=== PATIENT | male | born 1960 | race Caucasian/White ===

== ENCOUNTER → 2016-10-31 | Outpatient (REF) | payer OTHER ==
[~2016-10-31] MED LIST: CHLO25TA GT; LISI10TA4 PO; SIMV40TA2 PO
[2016-10-31 12:29] LABS: ALBUMIN 3.9 GM/DL (3.2-5.2); ALBUMIN/GLOBULIN RATIO 1.18 (1.00-1.93); ALKALINE PHOSPHATASE 75 U/L (45-117); ALT/SGPT 21 U/L (12-78); ANION GAP 11 MEQ/L (8-16); AST/SGOT 14 U/L (15-37); BILIRUBIN,TOTAL 0.5 MG/DL (0.2-1.0); BLOOD UREA NITROGEN 9 MG/DL (7-18); CALCIUM LEVEL 9.2 MG/DL (8.5-10.1); CARBON DIOXIDE LEVEL 29 MEQ/L (21-32); CHLORIDE LEVEL 97 MEQ/L (98-107); CHOLESTEROL LEVEL 176 MG/DL (<200); GLOMERULAR FILTRATION RATE > 60.0 (>56); GLUCOSE, FASTING 109 MG/DL (70-105); POTASSIUM SERUM 4.5 MEQ/L (3.5-5.1); SODIUM LEVEL 137 MEQ/L (136-145); TOTAL PROTEIN 7.2 GM/DL (6.4-8.2); TRIGLYCERIDES LEVEL 55 MG/DL (<150)
== END ==
LOC: M SFHCPLAZ 07:54
PROVIDERS: ATTEND Internal Medicine
DX: I10 Essential (primary) hypertension (principal); R73.01 Impaired fasting glucose; E78.00 Pure hypercholesterolemia, unspecified

== ENCOUNTER → 2016-12-08 | Outpatient (CLI) | payer OTHER ==
--- NOTE | 2016-12-09 07:25 | REP ---
Clinical: Lung screening examination. History smoking. Technique: Axial low-dose noncontrast images from the thoracic inlet to the upper abdomen using lung screening technique. Findings: Multiple posterobasilar right lower lobe areas of mass-like consolidation are identified with the largest components measuring 2.8 and 3.0 cm maximal diameter each. Differential diagnosis would include areas of acute pneumonia, chronic rounded atelectasis and neoplasm. No pleural effusion. Diffuse mild chronic interstitial changes and mild bronchiectasis noted and consistent with a history of smoking. Hilar and mediastinal adenopathy cannot be excluded based on current examination. Heart and pericardium are grossly normal. Thoracic aorta without aneurysm. Surrounding musculoskeletal structures are intact. Impression: Multiple areas of mass-like consolidation involving the posterior basilar right lower lobe with the largest components measuring 2.8 cm and 3.0 cm maximal diameter. Differential diagnosis includes pneumonia and neoplasm. Signed by Jaspreet Zarate MD 12/09/2016 07:17 A
== END ==
LOC: M RAD 09:57
PROVIDERS: ATTEND Internal Medicine
DX: Z12.2 Encounter for screening for malignant neoplasm of respiratory organs (principal); R91.8 Other nonspecific abnormal finding of lung field; Z87.891 Personal history of nicotine dependence

== ENCOUNTER → 2016-12-18 | Outpatient (CLI) | payer OTHER ==
[~2016-12-18] MED LIST changes: +CHLO125TA PO; +NICO1DIS2 TD; +SIMV20TA2 PO; +TUMS500C PO
[2016-12-18 12:44] LABS: INR 0.96
== END ==
LOC: M LAB 11:41
PROVIDERS: ATTEND Thoracic Surgery (Cardiothoracic Vascular Surgery)
DX: R91.1 Solitary pulmonary nodule (principal)

== ENCOUNTER 2016-12-19 10:42 | Inpatient (IN) | payer OTHER ==
[~2016-12-19] VITALS: Ht 167.6 cm; Wt 61.0 kg
[~2016-12-19 10:42] MED LIST changes: -CHLO125TA PO; -NICO1DIS2 TD; -SIMV20TA2 PO; -TUMS500C PO
[2016-12-19] MEDS ORDERED: LIDOCAINE 1% MDV 20ML VIAL As Ordered ONE ×2 (10:46→15:19)
--- NOTE | 2016-12-19 12:44 | REP ---
POST BIOPSY CHEST: Post biopsy image of the chest is performed. There is a small right apical pneumothorax with air gap 2.4 cm. Nodular opacity is seen in the right lung base. Heart is normal in size. IMPRESSION: Small right apical pneumothorax status post right lung biopsy. Signed by Luis Matos MD 12/19/2016 04:39 P
--- NOTE | 2016-12-19 14:49 | REP ---
CHEST: Postbiopsy image of the chest is performed. Right apical pneumothorax has mildly increased in size compared to prior exam 2 hours earlier. Air gap is currently 4.6 cm, previously 2.4 cm. IMPRESSION: Mild increase in right apical pneumothorax. Signed by Luis Matos MD 12/19/2016 04:43 P
[2016-12-19] MEDS ORDERED: MIDAZOLAM INJ 2 MG/2 ML VIAL (J2250) As Ordered ONE (15:19)
[2016-12-19] MEDS ORDERED: PERCOCET 5MG/325MG TAB PO PRN ×2 (15:30)
[2016-12-19] MEDS ORDERED: BISACODYL 10 MG SUPP PR PRN (15:30)
[2016-12-19] MEDS ORDERED: LEVALBUTEROL 1.25 MG/0.5 ML CONCENTRATE NEB NEB PRN (15:30)
[2016-12-19] MEDS ORDERED: ACETAMINOPHEN TAB 650MG DOSE (2X325MG) PO PRN (15:30)
[2016-12-19] MEDS ORDERED: NORCO, ANEXSIA 5/325MG TABLET (HYDROcodone/ACETAMINOPHEN) PO PRN (15:30)
[2016-12-19] MEDS ORDERED: ONDANSETRON 4MG/2ML VIAL (J2405) IV PRN (15:30)
[2016-12-19 16:10] VITALS: BP 108/57
[2016-12-19] MEDS ORDERED: CHLO125TA PO (16:44)
[2016-12-19] MEDS ORDERED: SIMV20TA2 PO (16:44)
[2016-12-19] MEDS ORDERED: TUMS500C PO (16:44)
[2016-12-19] MEDS ORDERED: NICO1DIS2 TD (16:44)
--- NOTE | 2016-12-19 16:48 | REP ---
PORTABLE CHEST, ONE VIEW: HISTORY: Pneumothorax COMPARISON: 2:21 p.m. 12/19/2016. Parenchymal density is present in the right lower lobe consistent with atelectasis or infiltrate. The left lung is clear. The heart is normal in size. The pulmonary vasculature is normal in appearance. A very small right apical pneumothorax is present. A chest tube is present in the right hemithorax. IMPRESSION: 1. Right lower lobe atelectasis or infiltrate. 2. Very small right apical pneumothorax. A right chest tube is present. Signed by Jose Pedersen MD 12/19/2016 04:58 P
[2016-12-19] MEDS ORDERED: KCL 20MEQ IN D5/NS 1000ML 1,000 ML IV SCH (17:00)
[2016-12-19] MEDS ORDERED: CALCIUM CARBONATE 500 MG CHEW U/D PO PRN (17:15)
--- NOTE | 2016-12-19 17:23 | REP ---
CT GUIDED RIGHT LOWER LOBE LUNG BIOPSY: The procedure was performed under the direct supervision of Dr. Matos. The patient has a history of multiple posterobasilar right lower lobe areas of mass-like consolidations seen on a previous CAT scan dated 12/08/2016. The risks and benefits of the procedure were explained to the patient and informed consent was obtained. The right lower lobe lung mass was localized using CT guidance. The skin was prepped and draped in a sterile fashion. 1% Lidocaine was used as a local anesthetic. Using CT guidance a 19/20-gauge coaxial needle biopsy system was inserted and then advanced into the mass. 4 core biopsy samples were obtained and sent to the lab. The patient developed a right pneumothorax. The patient's Oxygen saturations were 98-99% on room air. The patient was placed on 2 liters of Oxygen via nasal cannula. His oxygen saturations were then 100% on oxygen. The patient complained of no pain. His vital signs were otherwise stable. Single view PA chest x-ray performed immediately after the procedure shows a small right apical pneumothorax. Another chest x-ray performed 2 hours later shows a mild increase in the right apical pneumothorax. Dr. Sanches was consulted and came to the department and inserted the chest tube into the patient. The patient was then admitted under Dr. Sanches's care. Reviewed by RJ Uriostegui 12/19/2016 05:42 PEdited and Signed by Luis Matos MD 12/22/2016 05:35 P
[2016-12-19] MEDS: SIMVASTATIN 20 MG TAB PO SCH (17:34)
[2016-12-19] MEDS: CHLORTHALIDONE 12.5MG PER 1/2 TABLET PO SCH (17:34)
[2016-12-19] MEDS: PANTOPRAZOLE 40MG TAB (PROTONIX) PO SCH (17:35)
[2016-12-19] MEDS: LISINOPRIL 10 MG TAB PO SCH (17:37)
[2016-12-19] MEDS: KETOROLAC 30 MG/ML VIAL (J1885) IV SCH ×2 (17:38→23:45)
[2016-12-19] MEDS: NICOTINE 21MG/24HR 1 EA TRANSDERMAL TD SCH (17:39)
[2016-12-19 19:00] LABS: ANION GAP 6 MEQ/L (8-16); BLOOD UREA NITROGEN 11 MG/DL (7-18); CALCIUM LEVEL 8.4 MG/DL (8.5-10.1); CARBON DIOXIDE LEVEL 30 MEQ/L (21-32); CHLORIDE LEVEL 101 MEQ/L (98-107); CREATININE FOR GFR 0.67 MG/DL (0.70-1.30); GLOMERULAR FILTRATION RATE > 60.0 (>56); GLUCOSE, FASTING 94 MG/DL (70-105); POTASSIUM SERUM 3.8 MEQ/L (3.5-5.1); SODIUM LEVEL 137 MEQ/L (136-145)
[2016-12-19 19:13] LABS: BASO % 0.1 % (0.0-1.0); EOS # 0.2 K/mm3 (0.0-0.50); EOS % 1.5 % (0.0-3.0); LARGE UNSTAINED CELL # 0.2 K/mm3 (0.0-0.4); LARGE UNSTAINED CELL % 1.4 % (0.0-4.0); LYMPH # 1.1 K/mm3 (1.5-4.5); LYMPH % 10.5 % (24.0-44.0); MEAN CORPUSCULAR HGB CONC 34.2 g/dl (32.0-36.5); MEAN CORPUSCULAR VOLUME 93.4 fl (80.0-96.0); MONO # 0.5 K/mm3 (0.0-0.8); MONO % 4.1 % (0.0-5.0); NEUTROPHILS # 8.9 K/mm3 (1.8-7.7); NEUTROPHILS % 82.3 % (36.0-66.0); PLATELET COUNT, AUTOMATED 331 k/mm3 (150-450); RED CELL DISTRIBUTION WIDTH 12.8 % (11.5-14.5); WHITE BLOOD COUNT 10.8 K/mm3 (4.0-10.0)
[2016-12-19 20:00] VITALS: BP 85/50
[2016-12-19] MEDS: HEPARIN SOD (PORCINE) 5000 UNITS/ML VIAL SC SCH (20:48)
[2016-12-19] MEDS: DOCUSATE SODIUM 100 MG CAP PO SCH (20:48)
[2016-12-19 21:15] VITALS: BP 101/62
[2016-12-19] MEDS: LEVALBUTEROL 1.25 MG/0.5 ML CONCENTRATE NEB NEB SCH (21:38)
[2016-12-19] MEDS ORDERED: SLF 3 ML SYR IV PRN (23:15)
[2016-12-19 23:59] VITALS: BP 99/54
[2016-12-20] MEDS: LEVALBUTEROL 1.25 MG/0.5 ML CONCENTRATE NEB NEB SCH ×4 (02:20→20:00)
[2016-12-20 04:45] VITALS: BP 96/54
[2016-12-20] MEDS: KETOROLAC 30 MG/ML VIAL (J1885) IV SCH ×3 (05:06→17:38)
[2016-12-20] MEDS: SLF 3 ML SYR IV SCH ×3 (05:06→21:32)
[2016-12-20 05:29] LABS: BASO % 0.1 % (0.0-1.0); EOS # 0.1 K/mm3 (0.0-0.50); EOS % 1.5 % (0.0-3.0); LARGE UNSTAINED CELL # 0.1 K/mm3 (0.0-0.4); LARGE UNSTAINED CELL % 1.5 % (0.0-4.0); LYMPH % 12.1 % (24.0-44.0); MEAN CORPUSCULAR HGB CONC 33.8 g/dl (32.0-36.5); MEAN CORPUSCULAR VOLUME 94.7 fl (80.0-96.0); MONO # 0.4 K/mm3 (0.0-0.8); MONO % 4.6 % (0.0-5.0); NEUTROPHILS # 6.9 K/mm3 (1.8-7.7); NEUTROPHILS % 80.3 % (36.0-66.0); PLATELET COUNT, AUTOMATED 291 k/mm3 (150-450); RED CELL DISTRIBUTION WIDTH 13.1 % (11.5-14.5); WHITE BLOOD COUNT 8.6 K/mm3 (4.0-10.0)
[2016-12-20 05:40] LABS: ANION GAP 4 MEQ/L (8-16); BLOOD UREA NITROGEN 13 MG/DL (7-18); CALCIUM LEVEL 8.4 MG/DL (8.5-10.1); CARBON DIOXIDE LEVEL 30 MEQ/L (21-32); CHLORIDE LEVEL 106 MEQ/L (98-107); CREATININE FOR GFR 0.78 MG/DL (0.70-1.30); GLOMERULAR FILTRATION RATE > 60.0 (>56); GLUCOSE, FASTING 106 MG/DL (70-105); SODIUM LEVEL 140 MEQ/L (136-145)
[2016-12-20 08:00] VITALS: BP 101/50
[2016-12-20] MEDS: DOCUSATE SODIUM 100 MG CAP PO SCH ×2 (08:50→21:32)
[2016-12-20] MEDS: SIMVASTATIN 20 MG TAB PO SCH (08:50)
[2016-12-20] MEDS: HEPARIN SOD (PORCINE) 5000 UNITS/ML VIAL SC SCH ×2 (08:50→21:32)
[2016-12-20] MEDS: CHLORTHALIDONE 12.5MG PER 1/2 TABLET PO SCH (08:50)
[2016-12-20] MEDS: PANTOPRAZOLE 40MG TAB (PROTONIX) PO SCH (08:50)
[2016-12-20] MEDS: MOM 30ML SUSPENSION UDC PO SCH (08:50)
[2016-12-20] MEDS: LISINOPRIL 10 MG TAB PO SCH (08:50)
[2016-12-20] MEDS: NICOTINE 21MG/24HR 1 EA TRANSDERMAL TD SCH (08:51)
[2016-12-20 12:00] VITALS: BP 99/58
--- NOTE | 2016-12-20 15:05 | HPE ---
DATE OF ADMISSION: 12/19/2016 Patient is seen on request of Dr. Matos of radiology for a pneumothorax after a lung biopsy. The pneumothorax has grown to approximately 40-50%. HISTORY OF PRESENT ILLNESS: The patient is a 56-year-old White male who underwent a lung biopsy today of a right lower lobe lesion found on a CT screening examination on 12/08/2016. Had this screening CT had not been undertaken he would not have known anything brewing in this chest. He does not complain of undue shortness of breath, and in fact was cutting wood a few days ago in his back yard with a chainsaw. He had a slight cough but no sputum production. He did have an upper respiratory track infection a number of weeks ago where he was bringing up yellow sputum but that has resolved. He was also running a low grade fever at that point in time. He does not report any weight loss and he has no chest pain and no chest discomfort. He has no dysphasia. PAST MEDICAL HISTORY: 1. Hypertension. 2. Hypercholesterolemia. ALLERGIES: None. HOME MEDICATIONS: - lisinopril 10 mg daily - simvastatin 20 mg at night - chlorthalidone 12.5 mg daily TRAVEL HISTORY: He has a positive travel history to the [facility] last year and to [place]. No travel history to the [facility] or [facility]. EXPOSURES: No birds, cats, or dogs at home. 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 HABITS: He smokes 1/2 to 3/4 pack per day. He drinks 4-5 beer at night. FAMILY HISTORY: Father has diabetes and hypertension. Mother has chronic obstructive pulmonary disease (COPD). REVIEW OF SYSTEMS: CONSTITUTIONAL: See history of present illness (HPI). EYES: Without diplopia. Without amaurosis fugax. Without prior jaundice. MOUTH: Has his own teeth. CARDIAC: Without prior myocardial infarctions, orthopnea, paroxysmal nocturnal dyspnea, or intermittent claudication. Does have hypertension. RESPIRATORY: See HPI. GASTROINTESTINAL: Without nausea, vomiting, diarrhea, constipation, melena, hematochezia, or hematemesis or abdominal pain. GENITOURINARY: Without dysuria or hematuria. Prior history of renal stones. NEUROLOGIC: Without paresthesias, paralyses, or prior seizures. PSYCHIATRIC: Without pathological anxieties or depression. ENDOCRINE: Without diabetes. Without thyroid disease. LYMPHATICS: Has not noticed lumps and bumps in neck, axilla or groin. PHYSICAL EXAMINATION: A well-developed, well-nourished white male in no acute distress. VITAL SIGNS: Temperature 99.6 with a heart rate of 99 with a regular rate and rhythm. Respiratory rate 18 without the use of accessory muscles who is 98% saturated on 4 liters nasal canula. Blood pressure is 122/55. HEAD: Normocephalic. EYES: Pupils equal, round and reactive to light. Extraocular movements intact. Sclerae nonicteric. NOSE: Without deformity. MOUTH: Mucous membranes are pink and moist. Lips and commissures without lesions. There is no thrush. NECK: Supple. There is no jugular venous distention. No subcutaneous emphysema. Trachea is midline. There are no lymphadenopathy or thyromegaly. He has 2+ carotid upstrokes without bruits. LUNGS: Markedly decreased chest sounds on the right side. I hear no wheezes, rhonchi or rales on either side. Percussion note is full to the diaphragm on either side. CARDIAC: Without murmurs, clicks, gallops, or rubs. I cannot feel his point of maximum impulse (PMI). S1, S2 are normal. ABDOMEN: Soft, nontender. Bowel sounds are positive. There is no hepatomegaly. No costovertebral angle (CVA) tenderness. EXTREMITIES: Show no pretibial edema. No calf tenderness. No differential swelling of the upper extremities. NEUROLOGIC: Shows II through XII intact. Gait is not tested. PSYCHIATRIC: Shows him to be awake, alert and oriented times 3 with appropriate mood and affect and conversational. LABORATORY: His white count today is still pending as are his chemistries. Chest x-ray shows the lung to have a pneumothorax on the right side at approximately 40-50%. His chest CT done on 12/08/2016 shows a 2.8 cm mass in the right lower lobe. There is no mediastinal lymphadenopathy on lung windows. There are any emphysematous changes. Adrenals looked normal on the lung windows. IMPRESSION: 1. Right upper lobe lung mass. 2. Pneumothorax, status-post biopsy. 3. Hypertension. 4. Hypercholesterolemia. PLAN AND DISCUSSION: I will immediately place the chest tube. We will monitor him over the next couple of days to make sure that he does not have an air leak and make sure the lung will stay up.
--- NOTE | 2016-12-20 15:06 | RO ---
DATE OF PROCEDURE: 12/19/2016 PREPROCEDURE DIAGNOSIS: Right pneumothorax status post lung biopsy. POSTPROCEDURE DIAGNOSIS: Right pneumothorax status post lung biopsy. PROCEDURE: Insertion of right anterior chest tube. SURGEON: Dr. Dago Sanches HOME ENERGY CONSULTANT: ANESTHESIA: PROCEDURE: Under satisfactory moderate sedation achieved with 3 mg of Versed, the patient was prepped and draped in the usual sterile fashion. The incision site was infiltrated with 1% Xylocaine, incision was made and a tunnel was created into the first intercostal space over the second rib. A #20 chest tube was placed without difficulty and was secured to the chest wall with #2 Tevdek suture. The chest tube was connected to the Pleur-evac. The patient tolerated the procedure well and a chest x-ray is pending.
--- NOTE | 2016-12-20 15:09 | REP ---
CHEST, TWO VIEWS: HISTORY: Pneumothorax. COMPARISON: Parenchymal density is present in the right lower lobe, consistent with atelectasis or infiltrate, unchanged compared to the previous study. The left lung is clear. The heart is normal in size. The pulmonary vasculature is normal in appearance. A chest tube is present in the right hemithorax. There is no definite pneumothorax. IMPRESSION: 1. Right lower lobe atelectasis or infiltrate, unchanged compared to the previous study. 2. There is no pneumothorax. A right chest tube is present. Signed by Jose Pedersen MD 12/20/2016 01:13 P
[2016-12-20 16:00] VITALS: BP 101/51
[2016-12-20 20:00] VITALS: BP 124/60
[2016-12-20 23:59] VITALS: BP 107/53
[2016-12-21] MEDS: KETOROLAC 30 MG/ML VIAL (J1885) IV SCH ×3 (00:40→11:43)
[2016-12-21] MEDS: LEVALBUTEROL 1.25 MG/0.5 ML CONCENTRATE NEB NEB SCH ×3 (02:00→13:35)
[2016-12-21 04:45] VITALS: BP 114/56
[2016-12-21] MEDS: SLF 3 ML SYR IV SCH ×2 (05:16→12:57)
[2016-12-21 05:44] LABS: ANION GAP 6 MEQ/L (8-16); BASO % 0.3 % (0.0-1.0); BLOOD UREA NITROGEN 11 MG/DL (7-18); CALCIUM LEVEL 7.4 MG/DL (8.5-10.1); CARBON DIOXIDE LEVEL 28 MEQ/L (21-32); CHLORIDE LEVEL 107 MEQ/L (98-107); CREATININE FOR GFR 0.75 MG/DL (0.70-1.30); EOS # 0.2 K/mm3 (0.0-0.50); GLOMERULAR FILTRATION RATE > 60.0 (>56); GLUCOSE, FASTING 113 MG/DL (70-105); LARGE UNSTAINED CELL # 0.2 K/mm3 (0.0-0.4); LARGE UNSTAINED CELL % 1.9 % (0.0-4.0); LYMPH % 13.2 % (24.0-44.0); MEAN CORPUSCULAR HEMOGLOBIN 34.3 pg (27.0-33.0); MEAN CORPUSCULAR HGB CONC 35.9 g/dl (32.0-36.5); MEAN CORPUSCULAR VOLUME 95.4 fl (80.0-96.0); MONO # 0.4 K/mm3 (0.0-0.8); MONO % 5.6 % (0.0-5.0); NEUTROPHILS # 5.8 K/mm3 (1.8-7.7); NEUTROPHILS % 75.9 % (36.0-66.0); PLATELET COUNT, AUTOMATED 247 k/mm3 (150-450); POTASSIUM SERUM 3.5 MEQ/L (3.5-5.1); RED CELL DISTRIBUTION WIDTH 13.3 % (11.5-14.5); SODIUM LEVEL 141 MEQ/L (136-145); WHITE BLOOD COUNT 7.7 K/mm3 (4.0-10.0)
[2016-12-21 08:00] VITALS: BP 121/64
[2016-12-21] MEDS: DOCUSATE SODIUM 100 MG CAP PO SCH (09:00)
[2016-12-21] MEDS: MOM 30ML SUSPENSION UDC PO SCH (09:00)
[2016-12-21] MEDS: HEPARIN SOD (PORCINE) 5000 UNITS/ML VIAL SC SCH (09:03)
[2016-12-21 09:04] VITALS: BP 121/64
[2016-12-21] MEDS: LISINOPRIL 10 MG TAB PO SCH (09:04)
[2016-12-21] MEDS: NICOTINE 21MG/24HR 1 EA TRANSDERMAL TD SCH (09:04)
[2016-12-21] MEDS: PANTOPRAZOLE 40MG TAB (PROTONIX) PO SCH (09:04)
[2016-12-21] MEDS: CHLORTHALIDONE 12.5MG PER 1/2 TABLET PO SCH (09:04)
[2016-12-21] MEDS: SIMVASTATIN 20 MG TAB PO SCH (09:04)
--- NOTE | 2016-12-21 09:51 | IPN ---
DATE: 12/20/2016 Mr. Urias is doing well today. He is breathing well and the chest tube insertion site is well controlled. His vital signs show a temperature-maximum (T-max) of 99.0 with a heart rate that ranges between 66 and 71 in a sinus rhythm, a respiratory rate that is constant at 18, who is 100% saturated on room air, and whose blood pressure is ranging between 101/50 to 96/54. His intake and output the past 24 hours has been recorded as 120 in and 400 out for a negativity of 280 mL. He has put out nothing from the chest tube and there is no air leak. Weight today is 60.1 kg compared to 59.1 kg yesterday. On physical examination, his lungs show equal breath sounds on either side. Percussion note is full to the diaphragm. There are no wheezes, rhonchi or rales. Cardiac Exam: Without murmurs, clicks, gallops, or rubs. I cannot feel his PMI. S1, S2 are normal. Abdomen: Soft. Nontender. Bowel sounds are positive. There is no hepatomegaly. No costovertebral angle (CVA) tenderness. Extremities: Show no pretibial edema. No calf tenderness. No differential swelling of the upper extremities. Skin: Warm, dry and perfused. Without cyanosis or mottling, including that of the nail beds and knees. Neck: Supple. There is no jugular venous distention. No subcutaneous emphysema. Trachea is midline. Mouth: Shows his mucous membranes to be pink and moist. Lips and commissures are without lesions. There is no thrush. Eyes: Show his pupils to be equal and reactive. Extraocular movements intact. Sclerae nonicteric. Neurologic: Shows II-XII intact along with gross motor and gross sensation intact. Gait is not tested. Psychiatric shows him to be awake, alert, and oriented times three with appropriate mood and affect and conversational. His white count today is 8.6 with hemoglobin and hematocrit of 13.4 and 39.6 respectively with a platelet count of 291. Differential shows 80% neutrophils, 12% lymphocytes, 4% monocytes. No immature forms and no toxic granulations. His electrolytes are normal with a BUN and creatinine of 13 and 0.78. Glucose is 106 and calcium 8.4. Chest x-ray today shows the lung fully expanded to the chest wall. Chest tube is in good place at the apex. There is no subcutaneous emphysema. The costophrenic angles are sharp. There are no infiltrates. Lateral film does not show any posterior infiltrates with sharp posterior costophrenic angles. IMPRESSION: 1. Right lower lobe lung mass status post lung biopsy. 2. Pneumothorax. 3. Hypertension. 4. Hypercholesterolemia. PLAN AND DISCUSSION: I will discontinue the chest tube suction today. If his chest x-ray is satisfactory tomorrow, I will discontinue his chest tube and take a chest x-ray six hours later and plan for discharge.
[2016-12-21 12:00] VITALS: BP 135/65
--- NOTE | 2016-12-21 15:10 | REP ---
CHEST, TWO VIEWS: HISTORY: Pneumothorax. COMPARISON: 12/20/2016 Parenchymal density is present in the right lower lobe, consistent with atelectasis or infiltrate that is slightly decreased compared to the previous study. The left lung is clear. The heart is normal in size. The pulmonary vasculature is normal in appearance. A chest tube is present in the right hemithorax. There is no definite pneumothorax. IMPRESSION: 1. Right lower lobe atelectasis or infiltrate, decreased compared to the previous study. 2. There is no pneumothorax. A chest tube is present in the right hemithorax. Signed by Jose Pedersen MD 12/21/2016 03:19 P
--- NOTE | 2016-12-22 06:51 | REP ---
CHEST, TWO VIEWS: HISTORY: Pneumothorax. COMPARISON: 8:05 a.m. 12/21/2016. Parenchymal density is present in the right lower lobe consistent with atelectasis or infiltrate that is unchanged compared to the previous study. The left lung is clear. The heart is normal in size. The pulmonary vasculature is normal in appearance. The patient is status post right chest tube removal. There is a possible very small 1.2 mm right apical pneumothorax. IMPRESSION: 1. Right lower lobe atelectasis or infiltrate, unchanged compared to the previous study. 2. Possible very small right apical pneumothorax. Signed by Jose Pedersen MD 12/22/2016 08:23 A
--- NOTE | 2016-12-22 07:54 | DSES ---
DATE OF ADMISSION: 12/19/2016 DATE OF DISCHARGE: 12/21/2016 DISCHARGE DIAGNOSES: Right pneumothorax status post lung biopsy. Right upper lobe lung mass and solitary nodule, pathology pending. Hypertension. Hypercholesterolemia. HOSPITAL COURSE: Patient is a 56-year-old white male who underwent a lung biopsy on 12/19/2016 for right upper lobe lung mass. He sustained a pneumothorax which was approximately 40% on the right side. A chest tube was placed and the lung was reinflated without difficulty. There was no continued air leak and the chest tube was removed on the second hospital day after being placed to water seal on the first hospital day. He had a benign hospital course and is being discharged on his home medications of lisinopril 10 mg daily, simvastatin 20 mg daily at bedtime and chlorthalidone 12.5 mg daily along with a nicotine patch. He will return to see me in 1 week with a chest x-ray and for followup of the biopsy results. He will undergo PET scan this Thursday. His discharge chest x-ray shows the lung fully expanded to the chest wall. Discharge hemoglobin and hematocrit are 12.9 and 36.0 with a white count of 7.7 and a platelet count of 247. Discharge electrolytes are normal with a BUN and creatinine of 11 and 0.75.
== END 2016-12-21 15:52 | disposition home or self-care (01) | DRG 143 ==
LOC: M RADPRO 10:42 → M PCU 15:31
PROVIDERS: ADMIT Thoracic Surgery (Cardiothoracic Vascular Surgery); ATTEND Thoracic Surgery (Cardiothoracic Vascular Surgery)
PROC: 0BB Respiratory System, Excision (ICD-10-PCS; principal; 2016-12-19)
PROC: 0B9N00Z Drainage of Right Pleura with Drainage Device, Open Approach (ICD-10-PCS; 2016-12-19)
DX: J95.811 Postprocedural pneumothorax (principal); I10 Essential (primary) hypertension; C34.32 Malignant neoplasm of lower lobe, left bronchus or lung; E78.00 Pure hypercholesterolemia, unspecified; F17.210 Nicotine dependence, cigarettes, uncomplicated; Z83.3 Family history of diabetes mellitus; Z82.49 Family history of ischemic heart disease and other diseases of the circulatory system; Z83.6 Family history of other diseases of the respiratory system

== ENCOUNTER → 2016-12-24 | Outpatient (CLI) | payer OTHER ==
[~2016-12-24] MED LIST changes: +CHLO125TA PO; +NICO1DIS2 TD; +SIMV20TA2 PO; +TUMS500C PO
--- NOTE | 2016-12-29 09:16 | REP ---
PET/CT: History: Diagnosing lung cancer. Comparisons: Comparison chest CT study December 08, 2016 shows multiple mass-like opacities in the right lower lobe. The patient is status post CT guided needle biopsy December 19, 2016. This produced a diagnosis of well differentiated adenocarcinoma. TECHNIQUE: 69 minutes following the intravenous injection of a 8.2 mCi dose of F-18 FDG, three-dimensional PET scintigraphy is acquired from the skull base to the proximal thighs. Triplanar noncontrast CT scanning is acquired through the same anatomic range for attenuation correction, and image registration with scan parameters optimized to minimize radiation exposure to the patient. PET scintigraphy and CT datasets were fused and displayed on a workstation with multiplanar and projection display capability. PET/CT Findings: The known spiculated 2.8 cm right lower lobe mass shows hypermetabolic uptake with maximum standard uptake value of 8.1. The opacity extending caudally from the mass shows mild accumulation of FDG with maximum standard uptake value 5.4-6.0. There is no other abnormal hypermetabolic uptake within the thorax. No hilar or mediastinal hypermetabolic uptake is seen. There are small air containing bullae adjacent to the pulmonary parenchymal opacities in the right lower lobe. The head and neck soft tissues are unremarkable. No supraclavicular or axillary adenopathy or hypermetabolic uptake is seen. No adrenal hypermetabolic uptake is observed. In the abdomen and pelvis, there is normal distribution of FDG. No abdominal hypermetabolic uptake is seen. No abnormal skeletal uptake. Impression: There is hypermetabolic uptake in the right lower lobe pulmonary opacities. No FDG PET evidence to suggest metastatic disease. Signed by Aaron Potter MD 12/29/2016 10:53 A
== END ==
LOC: M PLARAD 08:25
PROVIDERS: ATTEND Thoracic Surgery (Cardiothoracic Vascular Surgery)
DX: C34.90 Malignant neoplasm of unspecified part of unspecified bronchus or lung (principal)
CPT/HCPCS: 78815; A9552

== ENCOUNTER → 2016-12-29 | Outpatient (CLI) | payer OTHER ==
--- NOTE | 2016-12-30 01:59 | REP ---
Clinical: Pulmonary nodule . Comparison: 12/21/2016 . Technique: PA and lateral. Findings: The mediastinum and cardiac silhouette are normal. The lung osorio demonstrate stable chronic changes without acute consolidation, effusion, or pneumothorax. The skeletal structures are intact and normal. Impression: 1. No acute cardiopulmonary process. Signed by Jaspreet Zarate MD 12/30/2016 01:51 A
== END ==
LOC: M SMT 11:09
PROVIDERS: ATTEND Thoracic Surgery (Cardiothoracic Vascular Surgery)
DX: R91.1 Solitary pulmonary nodule (principal)

== ENCOUNTER → 2016-12-30 | Outpatient (CLI) | payer OTHER ==
[2016-12-30 14:15] LABS: ABG BASE EXCESS 3.4 (-2.0-2.0); ABG DEVICE ROOM AIR; ABG HCO3 25.7 MEQ/L (22.0-26.0); ABG PARTIAL PRESSURE O2 113.9 mmHg (75.0-100.0); ABG STANDARD HCO3 27.6 MEQ/L (22.0-26.0); ABG TOTAL CO2 26.6 MEQ/L (22.0-29.0); ABG pH (ARTERIAL) 7.522 UNITS (7.350-7.450)
[2016-12-30 14:39] LABS: MEAN CORPUSCULAR HEMOGLOBIN 31.1 pg (27.0-33.0); MEAN CORPUSCULAR HGB CONC 33.5 g/dl (32.0-36.5); MEAN CORPUSCULAR VOLUME 92.9 fl (80.0-96.0); RED CELL DISTRIBUTION WIDTH 13.2 % (11.5-14.5)
[2016-12-30 14:55] LABS: INR 0.92
[2016-12-30 14:57] LABS: ANION GAP 7 MEQ/L (8-16); BLOOD UREA NITROGEN 11 MG/DL (7-18); CALCIUM LEVEL 9.2 MG/DL (8.5-10.1); CARBON DIOXIDE LEVEL 34 MEQ/L (21-32); CHLORIDE LEVEL 95 MEQ/L (98-107); CREATININE FOR GFR 0.74 MG/DL (0.70-1.30); GLOMERULAR FILTRATION RATE > 60.0 (>56); GLUCOSE, FASTING 67 MG/DL (70-105); SODIUM LEVEL 136 MEQ/L (136-145)
--- NOTE | 2016-12-30 19:10 | ECGEPIP ---
Stationary ECG Study [facility] Test Date: 2016-12-30 Pat Name: BRITTANY SAN Department: Room: - Gender: M Compatibility Test Engineer: ROHIT : 1960 Requested By: Dago Valle Order Number: [id number] Reading MD: Kathy Rajan Measurements Intervals Warren Rate: 82 P: 44 LA: 143 QRS: 59 QRSD: 84 T: 49 QT: 362 QTc: 425 Interpretive Statements SINUS RHYTHM WITH OCCASIONAL VENTRICULAR PREMATURE COMPLEXES NO PRIOR Electronically Signed On 12-30-2016 19:10:05 EDT by Kathy Rajan
== END ==
LOC: M ADMPAT 12:45
PROVIDERS: ATTEND Thoracic Surgery (Cardiothoracic Vascular Surgery)
DX: R91.8 Other nonspecific abnormal finding of lung field (principal)

== ENCOUNTER 2017-01-06 07:30 | Inpatient (IN) | payer OTHER ==
[2016-12-30 13:58] VITALS: BP 120/74
[2017-01-06] VITALS (7 sets, daily range): BP systolic 86–127; BP diastolic 40–66
[~2017-01-06] VITALS: Ht 167.6 cm; Wt 61.9 kg
[2017-01-06] MEDS ORDERED: VANCOMYCIN HCL 1,000 MG, VIAL MATE ADAPTER 1 EACH in D5W 250 ML IV ONE (08:45)
[2017-01-06] MEDS ORDERED: LR 1,000 ML IV SCH ×2 (08:45→15:30)
[2017-01-06] MEDS ORDERED: fentaNYL 100 MCG/2 ML INJECTION (J3010) As Ordered ONE ×2 (09:15→13:04)
[2017-01-06] MEDS ORDERED: MIDAZOLAM INJ 2 MG/2 ML VIAL (J2250) As Ordered ONE ×2 (09:15→10:16)
[2017-01-06] MEDS ORDERED: CETACAINE SPRAY 20GM (FLOOR STOCK) As Ordered ONE (09:59)
[2017-01-06] MEDS ORDERED: MUPIROCIN 2% OINT 22 GM TUBE TOP ONE (10:00)
[2017-01-06] MEDS ORDERED: ROCURONIUM BROMIDE 50 MG/5 ML VIAL As Ordered ONE ×2 (10:16→12:14)
[2017-01-06] MEDS ORDERED: LIDOCAINE 2% INJ 100 MG/5 ML SDV (FOR ANES.) As Ordered ONE (10:16)
[2017-01-06] MEDS ORDERED: fentaNYL 250 MCG/5 ML INJECTION (J3010) As Ordered ONE (10:16)
[2017-01-06] MEDS ORDERED: PROPOFOL 200 MG/20 ML VIAL As Ordered ONE (10:16)
[2017-01-06] MEDS ORDERED: BUPIVACAINE HCL 0.5% 10 ML VIAL As Ordered ONE (10:44)
[2017-01-06] MEDS ORDERED: BUPIVACAINE LIPOSOME/PF 1.3% 20 ML VIAL (13.3MG/ML)(EXPAREL) As Ordered ONE (10:44)
[2017-01-06] MEDS ORDERED: MIDAZOLAM INJ 2 MG/2 ML VIAL (J2250) IV ONE (12:00)
[2017-01-06] MEDS ORDERED: NALOXONE INJ 0.4 MG/1 ML VIAL (J2310) IV PRN (12:00)
[2017-01-06] MEDS ORDERED: EPIDURAL/PCA KEYS XX PRN (12:00)
[2017-01-06] MEDS ORDERED: diphenhydrAMINE INJ 50MG/ML VIAL (J1200) IV PRN (12:00)
[2017-01-06] MEDS ORDERED: ONDANSETRON 4MG/2ML VIAL (J2405) IV PRN ×3 (12:00→15:30)
[2017-01-06] MEDS ORDERED: WALLBOXKEY XX PRN (12:00)
[2017-01-06] MEDS ORDERED: METOCLOPRAMIDE INJ 10MG/2ML VIAL (J2765) IV PRN (12:00)
[2017-01-06] MEDS ORDERED: fentaNYL 100 MCG/2 ML INJECTION (J3010) IV ONE (12:00)
[2017-01-06 12:11] LABS: ABG DEVICE MECHAN. VENT; ABG HCO3 27.9 MEQ/L (22.0-26.0); ABG PARTIAL PRESSURE CO2 39.6 mmHg (35.0-45.0); ABG PARTIAL PRESSURE O2 315.8 mmHg (75.0-100.0); ABG PEAK PRESSURE 17; ABG STANDARD HCO3 28.1 MEQ/L (22.0-26.0); ABG TOTAL CO2 29.1 MEQ/L (22.0-29.0); ABG pH (ARTERIAL) 7.466 UNITS (7.350-7.450)
[2017-01-06] MEDS ORDERED: ONDANSETRON 4MG/2ML VIAL (J2405) As Ordered ONE (14:28)
[2017-01-06] MEDS ORDERED: KETOROLAC 60 MG/2 ML VIAL (J1885) As Ordered ONE (14:28)
[2017-01-06] MEDS ORDERED: NEOSTIGMINE 1MG/ML 5 ML SYRINGE (J2710) As Ordered ONE (14:29)
[2017-01-06] MEDS ORDERED: GLYCOPYRROLATE INJ 0.2 MG/ML 2 ML VIAL As Ordered ONE (14:29)
[2017-01-06] MEDS ORDERED: BISACODYL 10 MG SUPP PR PRN (15:00)
[2017-01-06] MEDS ORDERED: PERCOCET 5MG/325MG TAB PO PRN (15:00)
[2017-01-06] MEDS ORDERED: LEVALBUTEROL 1.25 MG/0.5 ML CONCENTRATE NEB NEB PRN (15:00)
[2017-01-06] MEDS ORDERED: CALCIUM CARBONATE 500 MG CHEW U/D PO PRN (15:00)
[2017-01-06] MEDS ORDERED: ACETAMINOPHEN TAB 650MG DOSE (2X325MG) PO PRN (15:00)
[2017-01-06] MEDS ORDERED: NORCO, ANEXSIA 5/325MG TABLET (HYDROcodone/ACETAMINOPHEN) PO PRN (15:00)
[2017-01-06] MEDS: FENTANYL/BUPIVACAINE/NACL BAG 250 ML EPIDURAL SCH (15:05)
[2017-01-06 15:16] LABS: ABG BASE EXCESS 1.3 (-2.0-2.0); ABG HCO3 26.5 MEQ/L (22.0-26.0); ABG PARTIAL PRESSURE CO2 43.9 mmHg (35.0-45.0); ABG PARTIAL PRESSURE O2 216.7 mmHg (75.0-100.0); ABG STANDARD HCO3 25.7 MEQ/L (22.0-26.0); ABG TOTAL CO2 27.8 MEQ/L (22.0-29.0); ABG pH (ARTERIAL) 7.398 UNITS (7.350-7.450)
[2017-01-06 15:23] LABS: BASO % 0.1 % (0.0-1.0); EOS # 0.3 K/mm3 (0.0-0.50); EOS % 1.5 % (0.0-3.0); LARGE UNSTAINED CELL # 0.1 K/mm3 (0.0-0.4); LARGE UNSTAINED CELL % 0.5 % (0.0-4.0); LYMPH # 1.2 K/mm3 (1.5-4.5); LYMPH % 7.3 % (24.0-44.0); MEAN CORPUSCULAR HEMOGLOBIN 32.8 pg (27.0-33.0); MEAN CORPUSCULAR HGB CONC 35.1 g/dl (32.0-36.5); MEAN CORPUSCULAR VOLUME 93.6 fl (80.0-96.0); MONO # 0.5 K/mm3 (0.0-0.8); MONO % 2.9 % (0.0-5.0); NEUTROPHILS # 14.6 K/mm3 (1.8-7.7); NEUTROPHILS % 87.6 % (36.0-66.0); PLATELET COUNT, AUTOMATED 332 k/mm3 (150-450); RED CELL DISTRIBUTION WIDTH 12.7 % (11.5-14.5); WHITE BLOOD COUNT 16.7 K/mm3 (4.0-10.0)
[2017-01-06] MEDS ORDERED: fentaNYL 100 MCG/2 ML INJECTION (J3010) IV PRN (15:30)
[2017-01-06] MEDS ORDERED: MORPHINE 2 MG/ML 1ML SYRINGE IV PRN (15:30)
--- NOTE | 2017-01-06 15:35 | REP ---
Clinical: Status post right lower lobe lobectomy. Comparison: 12/29/2016. Findings: Two right apical chest tubes are identified along with postoperative changes including subcutaneous emphysema along the right lateral chest wall and thoracic inlet. Trace right basilar atelectasis cannot be excluded. No obvious pneumothorax. The left hemithorax appears clear. The mediastinum and cardiac silhouette appear normal. Skeletal structures are intact. Impression: Postoperative changes related to right lower lobe lobectomy. Signed by Jaspreet Zarate MD 01/06/2017 03:26 P
[2017-01-06 16:07] LABS: ANION GAP 7 MEQ/L (8-16); BLOOD UREA NITROGEN 8 MG/DL (7-18); CALCIUM LEVEL 7.8 MG/DL (8.5-10.1); CARBON DIOXIDE LEVEL 29 MEQ/L (21-32); CHLORIDE LEVEL 99 MEQ/L (98-107); CREATININE FOR GFR 0.54 MG/DL (0.70-1.30); GLOMERULAR FILTRATION RATE > 60.0 (>56); GLUCOSE, FASTING 128 MG/DL (70-105); POTASSIUM SERUM 3.2 MEQ/L (3.5-5.1); SODIUM LEVEL 135 MEQ/L (136-145)
[2017-01-06] MEDS ORDERED: LIDOCAINE PRES-FREE 2% 10ML AMP As Ordered ONE (16:46)
[2017-01-06] MEDS ORDERED: LIDOCAINE 2% INJ 100 MG/5 ML SDV (FOR ANES.) XX ONE (17:15)
[2017-01-06] MEDS: KCL 20MEQ IN D5/NS 1000ML 1,000 ML IV SCH (17:33)
[2017-01-06] MEDS ORDERED: POTASSIUM CHLORIDE 10 MEQ SR TABLET PO ONE (18:00)
[2017-01-06] MEDS: MOM 30ML SUSPENSION UDC PO SCH (18:20)
[2017-01-06] MEDS: PANTOPRAZOLE 40MG TAB (PROTONIX) PO SCH (18:35)
[2017-01-06] MEDS: LISINOPRIL 10 MG TAB PO SCH (18:35)
--- NOTE | 2017-01-06 19:55 | RO ---
DATE OF PROCEDURE: 01/06/2017 PREPROCEDURE DIAGNOSIS: Right lower lobe lung cancer. POSTPROCEDURE DIAGNOSIS: Right lower lobe lung cancer. PROCEDURE: Right lower lobectomy, mediastinal node dissection, five level rib block and bronchoscopy. SURGEON: Dr. Dago Sanches AUTO RADIATOR MECHANIC: ANESTHESIA: FINDINGS: Bronchoscopy revealed normal branching tracheobronchial tree with scant secretions. There are no endobronchial lesions. The thoracotomy revealed two complete fissures. The lower lobe lesion on the right side was identified and palpable. The node dissection looked like anthracotic nodes. DESCRIPTION OF PROCEDURE: Under satisfactory general anesthesia and single lumen tube endotracheal intubation, the bronchoscope was placed down the tracheobronchial tree. Each segment and subsegment were thoroughly inspected after suction aspirating the scant secretions. There were no endobronchial lesions seen on either side. The patient was then turned to the left lateral decubitus position and prepped and draped in the usual sterile fashion. A posterior lateral incision was made and the latissimus dorsi was divided along with a slip of the serratus anterior. The chest was entered through the 5th intercostal space. The lung was deflated having been intubated with a double-lumen tube. Dissection was started in the major fissure where the pulmonary artery was found and carried back to the confluence of fissures. The apical basilar segment was identified as was the posterior ascending upper lobe artery. In between these, a plane was created such that after incising the posterior mediastinal pleura, an [place] GI stapler could be passed to the posterior aspect of the fissure. The inferior pulmonary ligament was then divided to ascertain the position of the pulmonary vein. Attention was again turned back to the major fissure where the lower lobe pulmonary artery was dissected free of surrounding tissue and the underlying bronchus. A vascular tape was placed around it, and it was divided use of a vascular GI stapler. The vein was then surrounded by a vessel loop, dissected and isolated and then also divided by use of the same. The major fissure anteriorly was then divided by an [place] stapler after ascertaining the position of the middle lobe bronchus. Fissure was divided by the stapler, which then just left the bronchus. The bronchus and bronchus intermedius were dissected to after take off of the right middle lobe bronchus. A TA stapler was then placed across it, and it was stapled and cut with a 4.8 staple line. Prior to committing to stapling the bronchus, the lung was reinflated and both upper and middle lobes easily inflated. The bronchus was kept on the distal side of the stapler. It was then tested to 40 cm of water and found not to be leaking. It was oversewn with interrupted #3-0 Vicryl suture. Attention was then turned to the superior mediastinum where the mediastinal pleura was incised. The azygos vein was divided by use of the vascular BLUE stapler. All of the nodes were then swept from the cupula to under the azygos vein and sent for pathological examination. Those were removed by use of the Harmonic scalpel to seal the lymphatics. The node dissection cavity was then filled with Tisseel glue. Two chest tubes were placed, one anteriorly #24 and one posteriorly a curved #28. A five level rib block was then undertaken. This was accomplished with 0.5% Marcaine and Exparel. Pericostal sutures of #1 Prolene were placed in a [id number] fashion. The lung was reinflated and the staple lines coated with Tisseel glue. Pericostals were then tied and the extrathoracic muscles were closed with running #0 Vicryl suture, the subcutaneous tissues with a running #3-0 Vicryl suture and the skin with a running #3-0 Monocryl subcuticular suture. The patient tolerated the procedure well and left the operating room in satisfactory condition for the recovery room.
[2017-01-06] MEDS: DOCUSATE SODIUM 100 MG CAP PO SCH (20:23)
[2017-01-06] MEDS: KETOROLAC 30 MG/ML VIAL (J1885) IV SCH (20:24)
[2017-01-06] MEDS: HEPARIN SOD (PORCINE) 5000 UNITS/ML VIAL SC SCH (20:24)
[2017-01-06] MEDS: LEVALBUTEROL 1.25 MG/0.5 ML CONCENTRATE NEB NEB SCH (21:11)
[2017-01-07] VITALS (18 sets, daily range): BP systolic 80–127; BP diastolic 45–61; O2SAT 95–98
[2017-01-07] MEDS ORDERED: SODIUM CHLORIDE 0.9% 1000 ML IV ONE (00:30)
[2017-01-07] MEDS ORDERED: NS 500 ML IV SCH (00:30)
[2017-01-07] MEDS: LEVALBUTEROL 1.25 MG/0.5 ML CONCENTRATE NEB NEB SCH ×4 (02:00→19:55)
[2017-01-07] MEDS: KETOROLAC 30 MG/ML VIAL (J1885) IV SCH ×4 (02:50→20:38)
[2017-01-07 05:16] LABS: EOS # 0.1 K/mm3 (0.0-0.50); EOS % 0.8 % (0.0-3.0); LARGE UNSTAINED CELL # 0.1 K/mm3 (0.0-0.4); LARGE UNSTAINED CELL % 1.1 % (0.0-4.0); LYMPH # 1.3 K/mm3 (1.5-4.5); LYMPH % 10.1 % (24.0-44.0); MEAN CORPUSCULAR HGB CONC 33.4 g/dl (32.0-36.5); MEAN CORPUSCULAR VOLUME 95.9 fl (80.0-96.0); MONO # 0.5 K/mm3 (0.0-0.8); MONO % 4.1 % (0.0-5.0); NEUTROPHILS # 10.6 K/mm3 (1.8-7.7); NEUTROPHILS % 83.8 % (36.0-66.0); PLATELET COUNT, AUTOMATED 273 k/mm3 (150-450); RED CELL DISTRIBUTION WIDTH 12.9 % (11.5-14.5); WHITE BLOOD COUNT 12.6 K/mm3 (4.0-10.0)
[2017-01-07 05:28] LABS: ANION GAP 6 MEQ/L (8-16); BLOOD UREA NITROGEN 8 MG/DL (7-18); CARBON DIOXIDE LEVEL 27 MEQ/L (21-32); CHLORIDE LEVEL 101 MEQ/L (98-107); CREATININE FOR GFR 0.69 MG/DL (0.70-1.30); GLOMERULAR FILTRATION RATE > 60.0 (>56); GLUCOSE, FASTING 124 MG/DL (70-105); POTASSIUM SERUM 4.1 MEQ/L (3.5-5.1); SODIUM LEVEL 134 MEQ/L (136-145)
[2017-01-07 05:57] LABS: ABG HCO3 25.2 MEQ/L (22.0-26.0); ABG PARTIAL PRESSURE CO2 38.8 mmHg (35.0-45.0); ABG PARTIAL PRESSURE O2 137.9 mmHg (75.0-100.0); ABG STANDARD HCO3 25.4 MEQ/L (22.0-26.0); ABG TOTAL CO2 26.4 MEQ/L (22.0-29.0); ABG pH (ARTERIAL) 7.431 UNITS (7.350-7.450)
[2017-01-07] MEDS: KCL 20MEQ IN D5/NS 1000ML 1,000 ML IV SCH (07:16)
[2017-01-07] MEDS ORDERED: PANTOPRAZOLE 40MG INJ (PROTONIX) (C9113) IV SCH (09:00)
[2017-01-07] MEDS: LISINOPRIL 10 MG TAB PO SCH (09:00)
--- NOTE | 2017-01-07 09:25 | IPN ---
DATE: 01/07/2017 This is the first postoperative day for Mr. Urias, status post a right lower lobectomy. He had a quiet night of surgery; however, he was hypotensive last night, to which he responded to 500 mL bolus of fluid. His pain is being well controlled. I reduced his epidural from 10 to 8 yesterday night and his pain is still well controlled. His vital signs show a temperature-maximum (T-max) of 100.9, with a heart rate that ranges between 79 and 84 in a sinus rhythm, a respiratory rate is 16 to 18 without the use of accessory muscles. He is 97 to 98% saturated on 2 liters nasal cannula. Blood pressure is ranging between 80/45 last night to 90/53 this morning. The last blood pressure recorded was at 4:00. His intake and output the past 24 hours has been recorded as 3525 in and 945 out for a positivity of 1580 mL. He has put out 270 mL from the chest tube. His weight today is 63.9 kg compared to 61 kg yesterday. Oral intake is 1500 mL yesterday. He is having flatus. There is no air leak from the chest tube. PHYSICAL EXAMINATION: LUNGS: His lungs show some scattered rhonchi on the right side, most of which clear with coughing. Percussion note is full to the diaphragm. CARDIAC EXAM: Without murmurs, clicks, gallops or rubs. I cannot feel his point of maximum impulse (PMI). S1, S2 are normal. ABDOMEN: Soft, nontender. Bowel sounds positive. There is no hepatomegaly. No costovertebral angle tenderness. Bowel sounds are hypoactive. EXTREMITIES: Show no pretibial edema. No calf tenderness. No differential swelling of the upper extremities. SKIN: Warm, dry and perfused without cyanosis or mottling, including that of the nail beds and knees. NECK: Supple. There is no jugular venous distention. No subcutaneous emphysema. Trachea is midline. MOUTH: Shows his mucous membranes to be pink and moist. Lips and commissures without lesions. There is no thrush. EYES: Show his pupils to be equal and reactive. Extraocular motion intact. Sclerae anicteric. NEUROLOGIC: Shows II through XII intact with gross motor and gross sensation intact. Gait is not tested. PSYCHIATRIC: Shows him to be awake and alert, oriented times three with appropriate mood and affect and conversational. His white count today is 12.6 with hemoglobin and hematocrit of 11.8 and 35.5, down from 14.6 and 41.7 in the recovery room yesterday. This is probably secondary to hemodilution. Platelet count is 273, and differential shows 83% neutrophils, 10% lymphocytes, 4% monocytes. There are no immature forms. No toxic granulations. His electrolytes are essentially normal with his potassium correcting to 4.1 this morning. BUN and creatinine are 8 and 0.69 with a glucose of 124 and a calcium of 7.0. His chest x-ray is still pending, and I will check it later on this morning. IMPRESSION: 1. Postoperative day #1 status post right lower lobectomy. 2. Well differentiated adenocarcinoma by prior biopsy, final pathology pending from yesterday's procedure. 3. Hypertension. 4. Tobacco abuse. 5. Hyperlipidemia. PLAN AND DISCUSSION: I will not diurese him today. I am a wee bit concerned about the amount that has come out of the chest tube in total. It is not cloudy or chylous, but he just had his first full breakfast today. I will closely monitor the chest tube output. It is certainly not hemorrhagic but rather the consistency of Lavelle-Aid.
--- NOTE | 2017-01-07 09:36 | REP ---
Chest x-ray: Two views. History: Status post right lower lobectomy. Findings: Two right-sided chest tubes remain in place. There is some subcutaneous emphysema in the extrathoracic soft tissues on the right and in the base of the right neck. There is no visible pneumothorax. There is plate-like atelectasis in the right base and to a lesser extent in the left base. An epidural catheter is seen along with EKG monitoring electrodes. The heart is not enlarged. Impression: Two right-sided chest tubes in place. No pneumothorax visible. Bibasilar plate-like atelectasis. Signed by Aaron Potter MD 01/07/2017 11:16 A
[2017-01-07] MEDS: CHLORTHALIDONE 12.5MG PER 1/2 TABLET PO SCH (10:37)
[2017-01-07] MEDS: DOCUSATE SODIUM 100 MG CAP PO SCH ×2 (10:38→20:37)
[2017-01-07] MEDS: PANTOPRAZOLE 40MG TAB (PROTONIX) PO SCH (10:38)
[2017-01-07] MEDS: SIMVASTATIN 20 MG TAB PO SCH (10:38)
[2017-01-07] MEDS: NICOTINE 21MG/24HR 1 EA TRANSDERMAL TD SCH (10:39)
[2017-01-07] MEDS: HEPARIN SOD (PORCINE) 5000 UNITS/ML VIAL SC SCH ×2 (10:39→20:38)
[2017-01-07] MEDS: MOM 30ML SUSPENSION UDC PO SCH (10:41)
[2017-01-07] MEDS: FENTANYL/BUPIVACAINE/NACL BAG 250 ML EPIDURAL SCH (15:39)
[2017-01-07] MEDS ORDERED: SLF 3 ML SYR IV PRN (16:30)
[2017-01-07] MEDS: SLF 3 ML SYR IV SCH (20:38)
[2017-01-08] VITALS (17 sets, daily range): BP systolic 106–138; BP diastolic 58–67; O2SAT 94–99
[2017-01-08] MEDS: LEVALBUTEROL 1.25 MG/0.5 ML CONCENTRATE NEB NEB SCH ×4 (01:44→20:23)
[2017-01-08] MEDS: SLF 3 ML SYR IV SCH ×3 (03:41→21:29)
[2017-01-08] MEDS: KETOROLAC 30 MG/ML VIAL (J1885) IV SCH ×4 (03:41→21:27)
[2017-01-08 05:40] LABS: BASO % 0.1 % (0.0-1.0); EOS # 0.3 K/mm3 (0.0-0.50); EOS % 2.8 % (0.0-3.0); LARGE UNSTAINED CELL # 0.1 K/mm3 (0.0-0.4); LARGE UNSTAINED CELL % 1.2 % (0.0-4.0); LYMPH # 1.1 K/mm3 (1.5-4.5); LYMPH % 10.1 % (24.0-44.0); MEAN CORPUSCULAR HEMOGLOBIN 32.1 pg (27.0-33.0); MEAN CORPUSCULAR HGB CONC 34.5 g/dl (32.0-36.5); MEAN CORPUSCULAR VOLUME 92.9 fl (80.0-96.0); MONO # 0.5 K/mm3 (0.0-0.8); MONO % 5.1 % (0.0-5.0); NEUTROPHILS # 7.7 K/mm3 (1.8-7.7); NEUTROPHILS % 80.8 % (36.0-66.0); PLATELET COUNT, AUTOMATED 259 k/mm3 (150-450); RED CELL DISTRIBUTION WIDTH 13.1 % (11.5-14.5); WHITE BLOOD COUNT 9.6 K/mm3 (4.0-10.0)
[2017-01-08 05:53] LABS: ANION GAP 6 MEQ/L (8-16); BLOOD UREA NITROGEN 7 MG/DL (7-18); CALCIUM LEVEL 7.8 MG/DL (8.5-10.1); CARBON DIOXIDE LEVEL 28 MEQ/L (21-32); CHLORIDE LEVEL 102 MEQ/L (98-107); CREATININE FOR GFR 0.65 MG/DL (0.70-1.30); GLOMERULAR FILTRATION RATE > 60.0 (>56); GLUCOSE, FASTING 116 MG/DL (70-105); POTASSIUM SERUM 4.1 MEQ/L (3.5-5.1); SODIUM LEVEL 136 MEQ/L (136-145)
--- NOTE | 2017-01-08 08:53 | REP ---
PA and lateral chest: Comparison is 01/07/2017. The two right chest tubes are unchanged. There is no pneumothorax. There is volume loss in the right hemithorax compatible with the history of right lower lobectomy. These findings are unchanged. There is focal discoid atelectasis inferiorly in the right lung, unchanged. Left lung is clear. Cardiac size is normal. An epidural catheter is again incidentally noted. Impression: There is no interval change. Signed by Luis Cline MD 01/08/2017 08:45 A
[2017-01-08] MEDS: MOM 30ML SUSPENSION UDC PO SCH (09:00)
[2017-01-08] MEDS: HEPARIN SOD (PORCINE) 5000 UNITS/ML VIAL SC SCH ×2 (10:18→21:27)
[2017-01-08] MEDS: SIMVASTATIN 20 MG TAB PO SCH (10:19)
[2017-01-08] MEDS: CHLORTHALIDONE 12.5MG PER 1/2 TABLET PO SCH (10:19)
[2017-01-08] MEDS: PANTOPRAZOLE 40MG TAB (PROTONIX) PO SCH (10:19)
[2017-01-08] MEDS: DOCUSATE SODIUM 100 MG CAP PO SCH ×2 (10:20→21:00)
[2017-01-08] MEDS: NICOTINE 21MG/24HR 1 EA TRANSDERMAL TD SCH (10:20)
[2017-01-08] MEDS: LISINOPRIL 10 MG TAB PO SCH (10:20)
[2017-01-08] MEDS ORDERED: FUROSEMIDE 40 MG/4 ML VIAL (J1940) IV ONE (11:00)
--- NOTE | 2017-01-08 14:29 | IPN ---
DATE: 01/08/2017 This is now the second postoperative day for Mr. Urias. His pain is being well controlled. There is no longer an air leak. He has put out too much from the chest tubes to remove them. His vital signs show a temperature-maximum (T-max) of 99.3, with a heart rate that ranges between 91 and 87 in a sinus rhythm, a respiratory rate that is constant at 18, who is 94% saturated on room air and whose blood pressure is ranging between 117/66 to 138/67. His intake and output over the past 24 hours has been recorded as 4160 in and 2040 out for a positivity of 2100 mL. There is no air leak. His weight today is 61.5 kg compared to 63.9 kg yesterday. On physical examination, his lungs show scattered rhonchi on the right side. Percussion note is full to the diaphragm. The left side is clear without wheezes, rhonchi or rales with normal vesicular sounds. Cardiac exam is without murmurs, clicks, gallops or rubs. I cannot feel his point of maximum impulse (PMI). S1, S2 are normal. Abdomen is soft, nontender. Bowel sounds are positive. There is no hepatomegaly. No costovertebral angle tenderness. He is having flatus, but has not yet had a bowel movement. Extremities show maybe trace pretibial edema. No calf tenderness. No differential swelling of the upper extremities. Skin is warm, dry and perfused without cyanosis or mottling, including that of the nail beds and knees. Neck is supple. There is no jugular venous distention. No subcutaneous emphysema. Trachea is midline. Mouth shows his mucous membranes to be pink and moist. Lips and commissures without lesions. There is no thrush. Eyes show his pupils to be equal and reactive. Extraocular motion intact. Sclerae anicteric. Neurologic shows II-XII intact along with gross motor and gross sensation intact. Gait is not tested. Psychiatric shows him to be awake and alert, oriented times three with appropriate mood and affect and conversational. His white count today is 9.6 with hemoglobin and hematocrit of 11.5 and 33.4, essentially unchanged from yesterday. Platelet count is 259 and stable. Differential shows 80% neutrophils, 10% lymphocytes, 5% monocytes. There are no immature forms. No toxic granulations. His electrolytes are normal with a BUN and creatinine of 7 and 0.65. Calcium is 7.8 and glucose of 115. His chest x-ray today shows his lung fully expanded to the chest wall. There is volume loss from the right lobectomy. The mediastinum is slightly shifted to the right. Costophrenic angles are sharp. I see no infiltrates. Chest tubes are in good place. IMPRESSION: 1. Postoperative day #2 status post right lower lobectomy. 2. Well differentiated adenocarcinoma by prior biopsy, final pathology pending. 3. Hypertension. 4. Tobacco abuse. 5. Hyperlipidemia. PLAN AND DISCUSSION: I will start diuresing him today. I will take his chest tubes off suction as there is no air leak. I am gratified by his pain control and I will go upstairs today and look at the slides with the pathologist. FREDDY
[2017-01-08] MEDS: FENTANYL/BUPIVACAINE/NACL BAG 250 ML EPIDURAL SCH (16:39)
[2017-01-09] VITALS (20 sets, daily range): BP systolic 98–130; BP diastolic 56–65; O2SAT 94–99
[2017-01-09] MEDS: LEVALBUTEROL 1.25 MG/0.5 ML CONCENTRATE NEB NEB SCH ×4 (01:24→19:21)
[2017-01-09] MEDS: SLF 3 ML SYR IV SCH ×3 (03:58→20:42)
[2017-01-09] MEDS: KETOROLAC 30 MG/ML VIAL (J1885) IV SCH ×4 (03:58→20:41)
[2017-01-09 05:20] LABS: BASO % 0.1 % (0.0-1.0); EOS # 0.4 K/mm3 (0.0-0.50); EOS % 4.2 % (0.0-3.0); LARGE UNSTAINED CELL # 0.2 K/mm3 (0.0-0.4); LARGE UNSTAINED CELL % 1.6 % (0.0-4.0); LYMPH % 10.6 % (24.0-44.0); MEAN CORPUSCULAR HEMOGLOBIN 31.8 pg (27.0-33.0); MEAN CORPUSCULAR HGB CONC 33.8 g/dl (32.0-36.5); MEAN CORPUSCULAR VOLUME 94.2 fl (80.0-96.0); MONO # 0.5 K/mm3 (0.0-0.8); MONO % 5.5 % (0.0-5.0); NEUTROPHILS # 7.2 K/mm3 (1.8-7.7); NEUTROPHILS % 78.1 % (36.0-66.0); PLATELET COUNT, AUTOMATED 279 k/mm3 (150-450); RED CELL DISTRIBUTION WIDTH 12.7 % (11.5-14.5); WHITE BLOOD COUNT 9.2 K/mm3 (4.0-10.0)
[2017-01-09 05:39] LABS: ANION GAP 8 MEQ/L (8-16); BLOOD UREA NITROGEN 11 MG/DL (7-18); CALCIUM LEVEL 7.9 MG/DL (8.5-10.1); CARBON DIOXIDE LEVEL 28 MEQ/L (21-32); CHLORIDE LEVEL 99 MEQ/L (98-107); CREATININE FOR GFR 0.63 MG/DL (0.70-1.30); GLOMERULAR FILTRATION RATE > 60.0 (>56); GLUCOSE, FASTING 115 MG/DL (70-105); POTASSIUM SERUM 3.5 MEQ/L (3.5-5.1); SODIUM LEVEL 135 MEQ/L (136-145)
--- NOTE | 2017-01-09 08:15 | REP ---
Status post right lower lobe lobectomy. Technique: PA and lateral. Comparison: 01/08/2017. Findings: Two right-sided chest tubes in stable position. Right-sided pleuroparenchymal changes at the base are consistent with prior surgery and essentially unchanged. Minimal atelectasis and small pleural reaction cannot be excluded. Mediastinum and cardiac silhouette normal. Left hemithorax clear/stable. Skeletal structures intact. Impression: Stable postsurgical pleuroparenchymal changes involving the right hemithorax. No new acute process identified. Signed by Jaspreet Zarate MD 01/09/2017 08:07 A
[2017-01-09] MEDS: MOM 30ML SUSPENSION UDC PO SCH (09:00)
[2017-01-09] MEDS: HEPARIN SOD (PORCINE) 5000 UNITS/ML VIAL SC SCH ×2 (09:19→21:00)
[2017-01-09] MEDS: CHLORTHALIDONE 12.5MG PER 1/2 TABLET PO SCH (09:20)
[2017-01-09] MEDS: NICOTINE 21MG/24HR 1 EA TRANSDERMAL TD SCH (09:20)
[2017-01-09] MEDS: PANTOPRAZOLE 40MG TAB (PROTONIX) PO SCH (09:21)
[2017-01-09] MEDS: SIMVASTATIN 20 MG TAB PO SCH (09:21)
[2017-01-09] MEDS: DOCUSATE SODIUM 100 MG CAP PO SCH ×2 (09:21→20:41)
[2017-01-09] MEDS: LISINOPRIL 10 MG TAB PO SCH (09:21)
[2017-01-09] MEDS ORDERED: FUROSEMIDE 40 MG/4 ML VIAL (J1940) IV ONE (12:30)
[2017-01-09] MEDS: PERCOCET 5MG/325MG TAB PO PRN (15:07)
--- NOTE | 2017-01-09 16:54 | IPN ---
DATE: 01/09/2017 This is now the third postoperative day for Mr. Urias. He has had a stable 24 hours and his chest tube output has decreased. There is no air leak. His pain is being well controlled. There is no longer an air leak. I did go over the pathology with Dr. Coyle of pathology and surprisingly this has turned out to be a much larger lesion than we suspected on the screening CT. On the screening CT it measured approximately 2.8 cm. However, the tumor extends way to the basilar segment of the upper lobe and into the posterior segment of the upper lobe and measures 7 cm. All the peribronchial nodes are positive for tumor. The mediastinum nodes are negative. See discussion below. His vital signs show a temperature-maximum (T-max) of 99.3, with a heart rate that ranges between 102 and 82 in a sinus rhythm, a respiratory rate of 18 to 20 without the use of accessory muscles who is 95 to 99% saturated on room air. Blood pressure is ranging between 130/58 and 121/58. His intake and output over the past 24 hours has been recorded as 1176 in and 3660 out for a negativity of 2400mL. He has put out 205 through the chest tube. That was in response to one dose of Lasix yesterday. He weighs 61.6 kg today compared to 61.5 kg yesterday. On physical examination, he has some scattered rhonchi on the right side but clear with coughing. Percussion note is full to the diaphragm. Cardiac exam is without murmurs, clicks, gallops or rubs. I cannot feel his point of maximum impulse (PMI). S1, S2 are normal. Abdomen is soft, nontender. Bowel sounds are positive. There is no hepatomegaly. No costovertebral angle tenderness. He has not yet had a bowel movement. Extremities show maybe trace pretibial edema. No calf tenderness. No differential swelling of the upper extremities. Skin is warm, dry and perfused without cyanosis or mottling, including that of the nail beds and knees. Neck is supple. There is no jugular venous distention. No subcutaneous emphysema. Trachea is midline. Mouth shows his mucous membranes to be pink and moist. Lips and commissures without lesions. There is no thrush. Eyes show his pupils to be equal and reactive. Extraocular motion intact. Sclerae anicteric. Neurologic shows II-XII intact along with gross motor and gross sensation intact. Gait is not tested. Psychiatric shows him to be awake and alert, oriented times three with appropriate mood and affect and conversational. His white count today is 9.2 with hemoglobin and hematocrit of 11.5 and 33.9. Platelet count of 279. Differential shows 78% neutrophils, 10% lymphocytes, 5% monocytes. There are no immature forms. No toxic granulations. His electrolytes are essentially normal with a BUN and creatinine of 11 and 0.63, a glucose of 115 and a calcium of 7.9. His chest x-ray today shows his lung fully expanded to the chest wall. Costophrenic angles are sharp. There is some atelectatic post-surgical changes in the midlung field. Chest tubes are in good place. There are no infiltrates on the lateral film. As noted above his tumor measures 7 cm with peribronchial nodes positive. Affected tumor actually has been sized at 7-8 cm. It is infiltrating throughout. This therefore makes him a T3N1 lesion which will map to a stage 2B lesion. He will therefore need adjuvant chemotherapy after surgery and after his first office visit I will refer him to oncology for consideration of such. He has very good functional status. IMPRESSION: 1. Postoperative day #3 status post right lower lobectomy. 2. Poorly differentiated adenocarcinoma T3N1 stage 2B. PLAN AND DISCUSSION: See above. I will remove his chest tube today and diurese him some more today. Wean the epidural and discontinue the Way and plan for discharge in the morning.
[2017-01-10] VITALS: BP 157/74
[2017-01-10] MEDS: LEVALBUTEROL 1.25 MG/0.5 ML CONCENTRATE NEB NEB SCH ×2 (01:32→07:14)
[2017-01-10] MEDS: KETOROLAC 30 MG/ML VIAL (J1885) IV SCH ×2 (03:09→08:26)
[2017-01-10 04:00] VITALS: BP 115/55
[2017-01-10 05:31] LABS: BASO % 0.1 % (0.0-1.0); EOS # 0.3 K/mm3 (0.0-0.50); EOS % 3.6 % (0.0-3.0); LARGE UNSTAINED CELL # 0.1 K/mm3 (0.0-0.4); LARGE UNSTAINED CELL % 1.2 % (0.0-4.0); LYMPH # 0.5 K/mm3 (1.5-4.5); LYMPH % 4.9 % (24.0-44.0); MEAN CORPUSCULAR HEMOGLOBIN 31.9 pg (27.0-33.0); MEAN CORPUSCULAR HGB CONC 34.7 g/dl (32.0-36.5); MEAN CORPUSCULAR VOLUME 91.8 fl (80.0-96.0); MONO # 0.4 K/mm3 (0.0-0.8); MONO % 5.1 % (0.0-5.0); PLATELET COUNT, AUTOMATED 267 k/mm3 (150-450); WHITE BLOOD COUNT 8.2 K/mm3 (4.0-10.0)
[2017-01-10 05:38] LABS: ANION GAP 7 MEQ/L (8-16); BLOOD UREA NITROGEN 12 MG/DL (7-18); CARBON DIOXIDE LEVEL 29 MEQ/L (21-32); CHLORIDE LEVEL 97 MEQ/L (98-107); CREATININE FOR GFR 0.78 MG/DL (0.70-1.30); GLOMERULAR FILTRATION RATE > 60.0 (>56); GLUCOSE, FASTING 128 MG/DL (70-105); POTASSIUM SERUM 3.9 MEQ/L (3.5-5.1); SODIUM LEVEL 133 MEQ/L (136-145)
[2017-01-10] MEDS: SLF 3 ML SYR IV SCH (06:22)
[2017-01-10 08:00] VITALS: BP 134/59
[2017-01-10] MEDS: MOM 30ML SUSPENSION UDC PO SCH (08:24)
[2017-01-10] MEDS: DOCUSATE SODIUM 100 MG CAP PO SCH (08:24)
[2017-01-10] MEDS: SIMVASTATIN 20 MG TAB PO SCH (08:24)
[2017-01-10] MEDS: CHLORTHALIDONE 12.5MG PER 1/2 TABLET PO SCH (08:24)
[2017-01-10 08:25] VITALS: BP 134/59
[2017-01-10] MEDS: LISINOPRIL 10 MG TAB PO SCH (08:25)
[2017-01-10] MEDS: NICOTINE 21MG/24HR 1 EA TRANSDERMAL TD SCH (08:25)
[2017-01-10] MEDS: PANTOPRAZOLE 40MG TAB (PROTONIX) PO SCH (08:25)
[2017-01-10] MEDS: HEPARIN SOD (PORCINE) 5000 UNITS/ML VIAL SC SCH (08:26)
--- NOTE | 2017-01-10 08:35 | REP ---
Clinical: Status post right lower lobe lobectomy. Technique: PA and lateral. Comparison: 01/09/2017. Findings: Previously noted right-sided chest tubes have been removed. Pleuroparenchymal changes involving the left mid to lower lung zone including small increased pleural fluid again noted. The left hemithorax is essentially stable / clear. Skeletal structures are intact. Impression: Pleuroparenchymal changes involving the right mid to lower lung zone suggests minimally increased pleural fluid. Signed by Jaspreet Zarate MD 01/10/2017 08:26 A
[2017-01-10] MEDS: PERCOCET 5MG/325MG TAB PO PRN (10:21)
[2017-01-10] MEDS ORDERED: PERCOCET PO (11:10)
[2017-01-10] MEDS ORDERED: FUROSEMIDE 40 MG/4 ML VIAL (J1940) IV ONE (11:15)
[2017-01-10] MEDS ORDERED: OXYC1TAB23 PO (14:06)
--- NOTE | 2017-01-11 12:32 | DSES ---
DATE OF ADMISSION: 01/06/2017 DATE OF DISCHARGE: 01/10/2017 DISCHARGE DIAGNOSES: 1. Stage IIIA poorly differentiated adenocarcinoma of the left lung, T3 N1M0. 2. Hypertension. 3. Hypercholesterolemia. HOSPITALIZATION COURSE: The patient is a 56-year-old white male who underwent a low dose CT screening examination, which showed a lesion in the right lower lobe, which measured 2.8 cm in its greatest dimension. This was also seen on PET scan to be hypermetabolic. There was no hypermetabolic uptake into the mediastinum. He was essentially asymptomatic from this mass. While undergoing biopsy, he had a 40% pneumothorax on prior admission. His preoperative FEV1 was 2.85, which was 88% unpredicted with a diffusion capacity of 96% unpredicted. He was thought to represent stage IA tumor with the maximum dimensions of the original tumor being 2.8 cm. He was therefore taken to the operating room where he underwent a right lower lobectomy with a complete mediastinal node dissection. Surprisingly, on pathological examination, the tumor was found to be much more extensive than the 2.8 cm, which was seen on the CT scan. It infiltrated outwards to 7 to 8 cm into the lower lobe. He had positive peribronchial nodes and positive hilar nodes, but the mediastinal nodes were negative. This therefore made him a stage IIIA disease from the size of the tumor being a T3 N1. He had a benign postoperative course with the chest tube being removed on the third postoperative day. He is being discharged home today on his home medications, which include: - Tums 500 mg as needed for heartburn - chlorthalidone 12.5 mg daily - Lisinopril 10 mg daily - nicotine patch of 21 mg daily - simvastatin 20 mg daily - Percocet 5/325 mg every four hours as needed for pain He will return to see me in 1 week with a chest x-ray and postoperative followup. His discharge hemoglobin and hematocrit were 11.2 and 32.4 with a discharge white count of 8.2. Electrolytes show a marginally low sodium of 133 with a BUN and creatinine of 12 and 0.78. I have gone over the tumor findings with Mr. Urias and will recommend that he undergo adjuvant chemotherapy after he recovers from surgery. I will refer him to oncology after his first postoperative visit.
== END 2017-01-10 12:23 | disposition home or self-care (01) | DRG 120 ==
LOC: M OR 08:33 → M PCU 17:27
PROVIDERS: ADMIT Thoracic Surgery (Cardiothoracic Vascular Surgery); ATTEND Thoracic Surgery (Cardiothoracic Vascular Surgery)
PROC: 07B70ZX Excision of Thorax Lymphatic, Open Approach, Diagnostic (ICD-10-PCS; 2017-01-06)
PROC: 0BTC0ZZ Resection of Right Upper Lung Lobe, Open Approach (ICD-10-PCS; principal; 2017-01-06 10:15)
DX: C34.31 Malignant neoplasm of lower lobe, right bronchus or lung (principal); C77.1 Secondary and unspecified malignant neoplasm of intrathoracic lymph nodes; I10 Essential (primary) hypertension; E78.00 Pure hypercholesterolemia, unspecified; Z79.899 Other long term (current) drug therapy; E78.5 Hyperlipidemia, unspecified; F17.200 Nicotine dependence, unspecified, uncomplicated

== ENCOUNTER 2017-01-10 13:51 | Emergency (ER) | payer OTHER ==
[~2017-01-10] VITALS: Ht 167.6 cm; Wt 61.2 kg
[~2017-01-10 13:51] MED LIST changes: +PERCOCET PO
[2017-01-10] MEDS ORDERED: OXYC1TAB23 PO (14:06)
[2017-01-10 15:19] LABS: DIFF SLIDE NUMBER 143; MEAN CORPUSCULAR HEMOGLOBIN 32.4 pg (27.0-33.0); MEAN CORPUSCULAR HGB CONC 33.9 g/dl (32.0-36.5); MEAN CORPUSCULAR VOLUME 95.4 fl (80.0-96.0); RED CELL DISTRIBUTION WIDTH 12.7 % (11.5-14.5); WHITE BLOOD COUNT 7.9 K/mm3 (4.0-10.0)
[2017-01-10 15:21] LABS: PLATELET COUNT, AUTOMATED 378 k/mm3 (150-450)
[2017-01-10] MEDS ORDERED: ACETAMINOPHEN TAB 650MG DOSE (2X325MG) PO ONE (15:30)
[2017-01-10] MEDS ORDERED: ACETAMINOPHEN 325 MG TAB PO ONE (15:30)
[2017-01-10 15:46] LABS: ANION GAP 10 MEQ/L (8-16); BLOOD UREA NITROGEN 12 MG/DL (7-18); CALCIUM LEVEL 8.8 MG/DL (8.5-10.1); CARBON DIOXIDE LEVEL 31 MEQ/L (21-32); CHLORIDE LEVEL 95 MEQ/L (98-107); CREATININE FOR GFR 0.97 MG/DL (0.70-1.30); GLOMERULAR FILTRATION RATE > 60.0 (>56); GLUCOSE, FASTING 93 MG/DL (70-105); POTASSIUM SERUM 4.2 MEQ/L (3.5-5.1); SODIUM LEVEL 136 MEQ/L (136-145)
[2017-01-10 15:52] LABS: BANDS 1 % (< 11); EOSINOPHILS 5 % (0-5)
--- NOTE | 2017-01-10 17:11 | REP ---
Clinical: Status post right lower lobe lobectomy. Technique: PA and lateral. Comparison: 01/10/2017 at 07:51 a.m. Findings: Pleuroparenchymal changes involving the right hemithorax remains stable. Mediastinum and cardiac silhouette are within normal limits. Left hemithorax is well-aerated and clear. No new acute mediastinal or pleuroparenchymal process appreciated. Skeletal structures intact. Impression: Stable pleuroparenchymal changes involving the right hemithorax. No new acute process identified. Signed by Jaspreet Zarate MD 01/10/2017 05:02 P
[2017-01-10] MEDS ORDERED: ISOVUE-370 76% 100ML VIAL (Q9967) As Ordered ONE (17:15)
--- NOTE | 2017-01-10 18:00 | REP ---
Clinical: Status post right lower lobe lobectomy with fever and pain. Findings: There is a small to moderate right pleural effusion along with very small amounts of residual pleural gas consistent with hydropneumothorax likely related to recent right lower lobe lobectomy. There is a minuscule amount of residual subcutaneous emphysema again related to prior lobectomy. Minimal right lower lobe atelectasis along with small focus of linear left lower lobe atelectasis is appreciated. Postsurgical changes at the hilum with surgical clips are identified as well as mild mediastinal and right hilar adenopathy measuring up to 16 mm short axis diameter. The tracheobronchial tree is patent. The heart and pericardium appear normal/stable. The surrounding musculoskeletal structures are intact. Limited evaluation of the upper abdomen demonstrates normal bilateral adrenal glands. Impression: 1. Small residual right hydropneumothorax and minuscule subcutaneous emphysema consistent with postoperative changes. 2. Scattered right basilar atelectasis and left lower lobe linear plate-like atelectasis. Mediastinal and right hilar lymph nodes up to 16 mm short axis diameter. Signed by Japsreet Zarate MD 01/10/2017 05:51 P
[2017-01-10 18:06] VITALS: BP 128/62
--- NOTE | 2017-01-11 15:09 | ED PDOC ---
Post-Departure Follow-Up dr dudley and dr palmer faxed formal report of ct chest for fu Isaiah Angel MD January 11, 2017 15:09
== END 2017-01-10 18:23 | disposition home or self-care (01) ==
LOC: M ED 15:44
DX: R50.9 Fever, unspecified (principal); I10 Essential (primary) hypertension; E78.00 Pure hypercholesterolemia, unspecified
CPT/HCPCS: 36415; 71020; 71260; 80048; 81001; 85025; 87040; 87086; 99284; Q9967

== ENCOUNTER → 2017-01-12 | Outpatient (CLI) | payer OTHER ==
[~2017-01-12] MED LIST changes: +OXYC1TAB23 PO
--- NOTE | 2017-01-12 12:26 | REP ---
Clinical: Malignant neoplasm. Technique: PA and lateral. Comparison: Of 2017. Findings: Pleuroparenchymal changes involving the right lower lung zone are consistent with postoperative change, but small areas of atelectasis and pleural effusion cannot be excluded. No obvious pneumothorax. Mediastinum and cardiac silhouette normal. Left hemithorax appears well aerated and clear. Skeletal structures are intact. Impression: Pleuroparenchymal changes involving the right lower lung zone similar to prior examination suggest postoperative changes as well as small pleural effusion and atelectasis. Signed by Jaspreet Zarate MD 01/12/2017 12:17 P
== END ==
LOC: M SMT 11:36
PROVIDERS: ATTEND Thoracic Surgery (Cardiothoracic Vascular Surgery)
DX: C34.31 Malignant neoplasm of lower lobe, right bronchus or lung (principal); J98.11 Atelectasis; J90 Pleural effusion, not elsewhere classified

== ENCOUNTER → 2017-01-26 | Outpatient (CLI) | payer OTHER ==
--- NOTE | 2017-01-26 09:45 | REP ---
CHEST X-RAY: Two views. HISTORY: Malignant neoplasm of the lung. COMPARISON CHEST X-RAY: January 12, 2017. FINDINGS: There is some volume loss against noted in the right hemithorax with pleural fluid or pleural thickening at the right base and fissural thickening noted on the right. These findings are unchanged from the recent prior chest x-ray January 12, 2017. The left lung is clear. Left pleural angles are sharp. Heart is not enlarged. IMPRESSION: Volume loss in the right hemithorax postop. Pleural thickening and/or fluid right base. Signed by Aaron Potter MD 01/26/2017 12:58 P
== END ==
LOC: M SMT 08:42
PROVIDERS: ATTEND Thoracic Surgery (Cardiothoracic Vascular Surgery)
DX: C34.31 Malignant neoplasm of lower lobe, right bronchus or lung (principal); R91.8 Other nonspecific abnormal finding of lung field

== ENCOUNTER → 2017-05-05 | Outpatient (CLI) | payer OTHER ==
[~2017-05-05] MED LIST changes: +GASTROGRAFIN SOLUTION 30ML (Q9963) As Ordered ONE; +ISOVUE-370 76% 100ML VIAL (Q9967) As Ordered ONE; -NICO1DIS2 TD; +NICO21DI31 TD
--- NOTE | 2017-05-05 11:10 | REP ---
Clinical: History of non-small cell lung cancer for restaging. Technique: Axial contrast enhanced images from the thoracic inlet to the upper abdomen using 100 ml Isovue 370 intravenous contrast material with coronal and sagittal re-formations. Comparison: 01/10/2017, 12/08/2016. Findings: The patient is status post right lower lobectomy with minimal residual postsurgical fibroatelectatic changes to the right lower lung zone including small amount of residual pleural fluid. Findings are considerably improved when compared to 01/10/2017. The left hemithorax is well-aerated and clear and the previously noted left lower lobe atelectasis has resolved. Postsurgical changes at the right hilum consistent with prior lobectomy. No consolidation, significant nodule or mass lesion appreciated. Lymph nodes in the right hilum measure up to 9.8 mm short axis diameter and improved from prior examination when measuring 17 mm. Further evaluation of the mediastinum demonstrates normal / stable thoracic aorta and heart/pericardium. Limited evaluation of the upper abdomen demonstrates normal bilateral adrenal glands, cholelithiasis, and stable sub centimeter left hepatic cyst. Musculoskeletal structures without focal osseous abnormality. Impression: Improved postsurgical changes involving the right hemithorax. No evidence for metastatic disease or recurrence. Small residual right pleural fluid. No new, acute mediastinal or pleuroparenchymal process. Signed by Jaspreet Zarate MD 05/05/2017 11:02 A
--- NOTE | 2017-05-05 11:19 | REP ---
Clinical: Non-small cell lung cancer for restaging. Technique: Axial contrast enhanced images from the lung bases to the pubic symphysis using oral and 100 ml Isovue 370 intravenous contrast material with precontrast and delayed images of the abdomen. Findings: Liver demonstrates subcentimeter benign cyst in the medial left lobe. No further hepatic lesions are identified. Spleen, pancreas, gallbladder, bilateral adrenal glands and kidneys are normal. The enteric system is without obstruction or acute inflammatory process. Normal terminal ileum and appendix identified in the right lower quadrant. This demonstrates normal bladder and mildly prominent prostate gland. No ascites. No free air. No adenopathy. No mass lesion. Atherosclerotic changes to the vasculature noted without aneurysm or dissection. Musculoskeletal structures are intact and without focal osseous abnormality. Impression: 1. No acute abdominopelvic pathology appreciated. 2. No evidence for metastatic disease. 3. No ascites, adenopathy or mass. 4. Mildly prominent prostate gland. 5. Subcentimeter benign hepatic cyst. Signed by Jaspreet Zarate MD 05/05/2017 11:11 A
== END ==
LOC: M RAD 08:53
PROVIDERS: ATTEND Internal Medicine Medical Oncology
DX: C34.90 Malignant neoplasm of unspecified part of unspecified bronchus or lung (principal); K76.89 Other specified diseases of liver; N40.0 Benign prostatic hyperplasia without lower urinary tract symptoms
CPT/HCPCS: 71260; 74178; Q9963; Q9967

== ENCOUNTER → 2017-07-30 | Outpatient (REF) | payer OTHER ==
[~2017-07-30] MED LIST changes: -GASTROGRAFIN SOLUTION 30ML (Q9963) As Ordered ONE; -ISOVUE-370 76% 100ML VIAL (Q9967) As Ordered ONE
[2017-07-30 12:02] LABS: MEAN CORPUSCULAR HEMOGLOBIN 32.9 pg (27.0-33.0); MEAN CORPUSCULAR VOLUME 91.5 fl (80.0-96.0); PLATELET COUNT, AUTOMATED 305 10^3/uL (150-450); RED CELL DISTRIBUTION WIDTH 11.7 % (11.5-14.5); WHITE BLOOD COUNT 6.7 10^3/uL (4.0-10.0)
[2017-07-30 12:48] LABS: ALBUMIN 4.5 GM/DL (3.2-5.2); ALBUMIN/GLOBULIN RATIO 1.41 (1.00-1.93); ALKALINE PHOSPHATASE 53 U/L (45-117); ALT/SGPT 20 U/L (12-78); ANION GAP 12 MEQ/L (8-16); AST/SGOT 14 U/L (7-37); BILIRUBIN,TOTAL 0.4 MG/DL (0.2-1.0); BLOOD UREA NITROGEN 11 MG/DL (7-18); CALCIUM LEVEL 9.3 MG/DL (8.5-10.1); CARBON DIOXIDE LEVEL 26 MEQ/L (21-32); CHLORIDE LEVEL 93 MEQ/L (98-107); CHOLESTEROL LEVEL 199 MG/DL (<200); CREATININE FOR GFR 0.74 MG/DL (0.70-1.30); GLOMERULAR FILTRATION RATE > 60.0 (>56); GLUCOSE, FASTING 90 MG/DL (70-105); POTASSIUM SERUM 3.8 MEQ/L (3.5-5.1); SODIUM LEVEL 131 MEQ/L (136-145); TOTAL PROTEIN 7.7 GM/DL (6.4-8.2); TRIGLYCERIDES LEVEL 53 MG/DL (<150)
== END ==
LOC: M SFHCPLAZ 10:24
PROVIDERS: ATTEND Internal Medicine
DX: Z72.0 Tobacco use (principal); I10 Essential (primary) hypertension; R73.01 Impaired fasting glucose; E78.00 Pure hypercholesterolemia, unspecified

== ENCOUNTER → 2017-11-06 | Outpatient (CLI) | payer OTHER ==
[~2017-11-06] MED LIST changes: -CHLO125TA PO; -CHLO25TA GT; +ISOVUE-370 76% 100ML VIAL (Q9967) As Ordered; -LISI10TA4 PO; -NICO21DI31 TD; -OXYC1TAB23 PO; -PERCOCET PO; -SIMV20TA2 PO; -SIMV40TA2 PO; -TUMS500C PO
== END ==
LOC: M RAD 12:37
DX: C34.90 Malignant neoplasm of unspecified part of unspecified bronchus or lung (principal)
CPT/HCPCS: Q9967

== ENCOUNTER → 2018-02-09 | Outpatient (REF) | payer OTHER ==
[2018-02-09 12:12] LABS: CREATININE, URINE < 13.0 MG/DL
[2018-02-09 12:58] LABS: ALBUMIN 3.9 GM/DL (3.2-5.2); ALBUMIN/GLOBULIN RATIO 1.18 (1.00-1.93); ALKALINE PHOSPHATASE 56 U/L (45-117); ALT/SGPT 25 U/L (12-78); ANION GAP 9 MEQ/L (8-16); AST/SGOT 15 U/L (7-37); BILIRUBIN,TOTAL 0.4 MG/DL (0.2-1.0); BLOOD UREA NITROGEN 12 MG/DL (7-18); CALCIUM LEVEL 9.1 MG/DL (8.5-10.1); CARBON DIOXIDE LEVEL 31 MEQ/L (21-32); CHLORIDE LEVEL 92 MEQ/L (98-107); CHOLESTEROL LEVEL 170 MG/DL (<200); CHOLESTEROL RISK RATIO 2.073 (<5); GLOMERULAR FILTRATION RATE > 60.0 (>56); GLUCOSE, FASTING 81 MG/DL (70-100); HDL CHOLESTEROL 82 MG/DL (>40); LDL CHOLESTEROL 75.2 MG/DL (<100); MAGNESIUM LEVEL 1.8 MG/DL (1.8-2.4); NON-HDL-C 88 MG/DL; POTASSIUM SERUM 3.7 MEQ/L (3.5-5.1); SODIUM LEVEL 132 MEQ/L (136-145); TOTAL PROTEIN 7.2 GM/DL (6.4-8.2); TRIGLYCERIDES LEVEL 64 MG/DL (<150)
[2018-02-09 13:12] LABS: MALB URINE SIEMENS 57.3 MG/L
[2018-02-09 18:02] LABS: ESTIMATED AVERAGE GLUCOSE 131 MG/DL (60-110); HEMOGLOBIN A1c 6.2 %
== END ==
LOC: M SFHCPLAZ 08:56
DX: I10 Essential (primary) hypertension (principal); R73.01 Impaired fasting glucose; E78.00 Pure hypercholesterolemia, unspecified

== ENCOUNTER → 2018-02-12 | Outpatient (REF) | payer OTHER ==
[2018-02-12 13:27] LABS: APPEARANCE, URINE CLEAR (CLEAR); BACTERIA, URINE AUTO NEGATIVE (NEGATIVE); BILIRUBIN, URINE AUTO NEGATIVE (NEGATIVE); BLOOD, URINE BLOOD NEGATIVE (NEGATIVE); COLOR, URINE YELLOW (YELLOW); GLUCOSE, URINE (UA) AUTO 1+ mg/dL (NEGATIVE); KETONE, URINE AUTO NEGATIVE (NEGATIVE); LEUKOCYTE ESTERASE, URINE AUTO NEGATIVE (NEGATIVE); MUCUS, URINE SMALL (NEGATIVE); NITRITE, URINE AUTO NEGATIVE (NEGATIVE); PROTEIN, URINE AUTO NEGATIVE (NEGATIVE); RBC, URINE AUTO 3 /HPF (0-3); SPECIFIC GRAVITY URINE AUTO 1.008 (1.002-1.035); SQUAMOUS EPITHELIAL CELL UR AU 0 /HPF (0-6); UROBILINOGEN, URINE AUTO 0.2 mg/dL (0.0-2.0); WBC, URINE AUTO 0 /HPF (0-3)
== END ==
LOC: M SFHCPLAZ 10:55
DX: R80.9 Proteinuria, unspecified (principal); I10 Essential (primary) hypertension

== ENCOUNTER → 2018-08-20 | Outpatient (REF) | payer OTHER ==
[~2018-08-20] MED LIST changes: +CHLO125TA PO; +CHLO25TA GT; -ISOVUE-370 76% 100ML VIAL (Q9967) As Ordered; +LISI10TA4 PO; +NICO21DI31 TD; +OXYC1TAB23 PO; +PERCOCET PO; +PRIL20TA2 PO; +SIMV20TA2 PO; +SIMV40TA2 PO; +TUMS500C PO
[2018-08-20 10:55] LABS: CREATININE, URINE 83.4 MG/DL; MALB URINE SIEMENS 18.1 MG/L; MAU/CREAT RATIO 21.7 MCG/MG (0.0-30.0)
[2018-08-20 10:59] LABS: HEMOGLOBIN A1c 5.7 %
[2018-08-20 11:00] LABS: APPEARANCE, URINE CLEAR (CLEAR); BACTERIA, URINE AUTO NEGATIVE (NEGATIVE); BILIRUBIN, URINE AUTO NEGATIVE (NEGATIVE); BLOOD, URINE BLOOD NEGATIVE (NEGATIVE); COLOR, URINE YELLOW (YELLOW); GLUCOSE, URINE (UA) AUTO NEGATIVE (NEGATIVE); KETONE, URINE AUTO NEGATIVE (NEGATIVE); LEUKOCYTE ESTERASE, URINE AUTO NEGATIVE (NEGATIVE); MUCUS, URINE SMALL (NEGATIVE); NITRITE, URINE AUTO NEGATIVE (NEGATIVE); PROTEIN, URINE AUTO NEGATIVE (NEGATIVE); RBC, URINE AUTO 0 /HPF (0-3); SPECIFIC GRAVITY URINE AUTO 1.013 (1.002-1.035); SQUAMOUS EPITHELIAL CELL UR AU 0 /HPF (0-6); UROBILINOGEN, URINE AUTO 0.2 mg/dL (0.0-2.0); WBC, URINE AUTO 0 /HPF (0-3)
[2018-08-20 11:20] LABS: ALBUMIN 4.1 GM/DL (3.2-5.2); ALT/SGPT 26 U/L (12-78); BILIRUBIN,TOTAL 0.6 MG/DL (0.2-1.0); BLOOD UREA NITROGEN 13 MG/DL (7-18); CALCIUM LEVEL 9.5 MG/DL (8.5-10.1); CARBON DIOXIDE LEVEL 29 MEQ/L (21-32); CHLORIDE LEVEL 94 MEQ/L (98-107); CHOLESTEROL LEVEL 214 MG/DL (<200); CHOLESTEROL RISK RATIO 2.326 (<5); CREATININE FOR GFR 0.73 MG/DL (0.70-1.30); GLOMERULAR FILTRATION RATE > 60.0 (>56); GLUCOSE, FASTING 91 MG/DL (70-100); HDL CHOLESTEROL 92 MG/DL (>40); LDL CHOLESTEROL 103 MG/DL (<100); NON-HDL-C 122 MG/DL; POTASSIUM SERUM 4.8 MEQ/L (3.5-5.1); SODIUM LEVEL 132 MEQ/L (136-145); TOTAL PROTEIN 7.5 GM/DL (6.4-8.2); TRIGLYCERIDES LEVEL 93 MG/DL (<150)
== END ==
LOC: M SFHCPLAZ 09:02
PROVIDERS: ATTEND Internal Medicine
DX: I10 Essential (primary) hypertension (principal); R73.01 Impaired fasting glucose; E78.00 Pure hypercholesterolemia, unspecified; Z78.9 Other specified health status; R80.9 Proteinuria, unspecified

== ENCOUNTER → 2019-03-02 | Outpatient (REF) | payer OTHER ==
[~2019-03-02] MED LIST changes: +ASPI-524 PO
[2019-03-02 10:07] LABS: APPEARANCE, URINE CLEAR (CLEAR); BACTERIA, URINE AUTO NEGATIVE (NEGATIVE); BILIRUBIN, URINE AUTO NEGATIVE (NEGATIVE); BLOOD, URINE BLOOD NEGATIVE (NEGATIVE); COLOR, URINE YELLOW (YELLOW); GLUCOSE, URINE (UA) AUTO NEGATIVE (NEGATIVE); KETONE, URINE AUTO NEGATIVE (NEGATIVE); LEUKOCYTE ESTERASE, URINE AUTO NEGATIVE (NEGATIVE); NITRITE, URINE AUTO NEGATIVE (NEGATIVE); PROTEIN, URINE AUTO NEGATIVE (NEGATIVE); RBC, URINE AUTO 4 /HPF (0-3); SPECIFIC GRAVITY URINE AUTO 1.006 (1.002-1.035); SQUAMOUS EPITHELIAL CELL UR AU 0 /HPF (0-6); UROBILINOGEN, URINE AUTO 0.2 mg/dL (0.0-2.0); WBC, URINE AUTO 0 /HPF (0-3)
[2019-03-02 10:25] LABS: HEMOGLOBIN A1c 6.1 %
[2019-03-02 10:29] LABS: ALBUMIN 4.2 GM/DL (3.2-5.2); ALT/SGPT 32 U/L (12-78); BILIRUBIN,TOTAL 0.6 MG/DL (0.2-1.0); BLOOD UREA NITROGEN 12 MG/DL (7-18); CARBON DIOXIDE LEVEL 32 MEQ/L (21-32); CHLORIDE LEVEL 94 MEQ/L (98-107); CHOLESTEROL LEVEL 184 MG/DL (<200); CHOLESTEROL RISK RATIO 1.936 (<5); CREATININE FOR GFR 0.79 MG/DL (0.70-1.30); GLOMERULAR FILTRATION RATE > 60.0 (>56); GLUCOSE, FASTING 107 MG/DL (70-100); HDL CHOLESTEROL 95 MG/DL (>40); LDL CHOLESTEROL 76 MG/DL (<100); MAGNESIUM LEVEL 2.1 MG/DL (1.8-2.4); NON-HDL-C 89 MG/DL; POTASSIUM SERUM 3.9 MEQ/L (3.5-5.1); SODIUM LEVEL 131 MEQ/L (136-145); TOTAL PROTEIN 7.2 GM/DL (6.4-8.2); TRIGLYCERIDES LEVEL 64 MG/DL (<150)
[2019-03-02 10:49] LABS: CREATININE, URINE 36.5 MG/DL; MALB URINE SIEMENS 29.5 MG/L; MAU/CREAT RATIO 80.8 MCG/MG (0.0-30.0)
== END ==
LOC: M SFHCPLAZ 07:59
PROVIDERS: ATTEND Internal Medicine
DX: I10 Essential (primary) hypertension (principal); R73.01 Impaired fasting glucose; E78.00 Pure hypercholesterolemia, unspecified; R80.9 Proteinuria, unspecified

== ENCOUNTER → 2019-03-08 | Outpatient (REF) | payer OTHER ==
[2019-03-08 14:04] LABS: APPEARANCE, URINE CLEAR (CLEAR); BACTERIA, URINE AUTO NEGATIVE (NEGATIVE); BILIRUBIN, URINE AUTO NEGATIVE (NEGATIVE); BLOOD, URINE BLOOD 1+ (NEGATIVE); COLOR, URINE STRAW (YELLOW); GLUCOSE, URINE (UA) AUTO NEGATIVE (NEGATIVE); KETONE, URINE AUTO NEGATIVE (NEGATIVE); LEUKOCYTE ESTERASE, URINE AUTO NEGATIVE (NEGATIVE); NITRITE, URINE AUTO NEGATIVE (NEGATIVE); PROTEIN, URINE AUTO NEGATIVE (NEGATIVE); RBC, URINE AUTO 1 /HPF (0-3); SPECIFIC GRAVITY URINE AUTO 1.003 (1.002-1.035); SQUAMOUS EPITHELIAL CELL UR AU 0 /HPF (0-6); UROBILINOGEN, URINE AUTO 0.2 mg/dL (0.0-2.0); WBC, URINE AUTO 0 /HPF (0-3)
== END ==
LOC: M SFHCPLAZ 12:40
PROVIDERS: ATTEND Internal Medicine
DX: R80.9 Proteinuria, unspecified (principal)

== ENCOUNTER → 2019-09-05 | Outpatient (CLI) | payer OTHER ==
[~2019-09-05] MED LIST changes: -ASPI-524 PO; +ASPI325T57 PO; -SIMV20TA2 PO; +SIMV20TA22 PO; -SIMV40TA2 PO; +SIMV40TA20 PO
[2019-09-05 10:53] LABS: APPEARANCE, URINE CLEAR (CLEAR); BACTERIA, URINE AUTO NEGATIVE (NEGATIVE); BILIRUBIN, URINE AUTO NEGATIVE (NEGATIVE); BLOOD, URINE BLOOD NEGATIVE (NEGATIVE); COLOR, URINE YELLOW (YELLOW); GLUCOSE, URINE (UA) AUTO NEGATIVE (NEGATIVE); KETONE, URINE AUTO NEGATIVE (NEGATIVE); LEUKOCYTE ESTERASE, URINE AUTO NEGATIVE (NEGATIVE); NITRITE, URINE AUTO NEGATIVE (NEGATIVE); PROTEIN, URINE AUTO NEGATIVE (NEGATIVE); RBC, URINE AUTO 2 /HPF (0-3); SPECIFIC GRAVITY URINE AUTO 1.006 (1.002-1.035); SQUAMOUS EPITHELIAL CELL UR AU 0 /HPF (0-6); UROBILINOGEN, URINE AUTO 0.2 mg/dL (0.0-2.0); WBC, URINE AUTO 0 /HPF (0-3)
[2019-09-05 11:15] LABS: ALBUMIN 4.5 GM/DL (3.2-5.2); ALT/SGPT 19 U/L (12-78); BILIRUBIN,TOTAL 0.8 MG/DL (0.2-1.0); BLOOD UREA NITROGEN 9 MG/DL (7-18); CALCIUM LEVEL 9.3 MG/DL (8.8-10.2); CARBON DIOXIDE LEVEL 30 MEQ/L (21-32); CHLORIDE LEVEL 95 MEQ/L (98-107); CREATININE FOR GFR 0.75 MG/DL (0.70-1.30); GLOMERULAR FILTRATION RATE > 60.0 (>49); GLUCOSE, FASTING 114 MG/DL (70-100); MAGNESIUM LEVEL 1.9 MG/DL (1.8-2.4); POTASSIUM SERUM 4.1 MEQ/L (3.5-5.1); SODIUM LEVEL 134 MEQ/L (136-145); TOTAL PROTEIN 7.7 GM/DL (6.4-8.2)
[2019-09-05 11:23] LABS: CREATININE, URINE 39.6 MG/DL; MAU/CREAT RATIO 17.6 MCG/MG (0.0-30.0)
== END ==
LOC: M PLALAB 08:07
PROVIDERS: ATTEND Internal Medicine
DX: I10 Essential (primary) hypertension (principal); R73.01 Impaired fasting glucose; Z12.5 Encounter for screening for malignant neoplasm of prostate; R80.9 Proteinuria, unspecified

== ENCOUNTER → 2020-01-24 | Outpatient (CLI) | payer OTHER ==
--- NOTE | 2020-01-25 10:55 | REP ---
REASON: History of nonsmall cell carcinoma of the lung. Prior CT/PET 12/24/[address] scan of the chest 04/04/2019 reviewed. That examination showed a new slightly asymmetric nodular density in the right lung of the lobe. The prior PET/CT showed hypermetabolic activity in the right lung lower lobe. After the intravenous administration of 7.76 millicuries of FDG18 triplane whole body PET/CT was performed from the skull base to the mid thigh. Patient's last chemotherapeutic regimen was in 2016. There is no abnormal hypermetabolic activity seen in the neck, chest, abdomen, or pelvis. IMPRESSION: Negative PET/CT. Electronically Signed by Maurice Church DO 01/25/2020 11:28 A
== END ==
LOC: M PLARAD 10:30
PROVIDERS: ATTEND Internal Medicine Medical Oncology
DX: C34.31 Malignant neoplasm of lower lobe, right bronchus or lung (principal)
CPT/HCPCS: 78815; A9552

== ENCOUNTER → 2020-09-19 | Outpatient (REF) | payer OTHER ==
[~2020-09-19] MED LIST changes: +LISI10TA22 PO; -LISI10TA4 PO; +NICO1DIS12 TD; -NICO21DI31 TD
[2020-09-19 15:00] LABS: CREATININE, URINE 32.9 MG/DL; MALB URINE SIEMENS 22.7 MG/L; MAU/CREAT RATIO 68.9 MCG/MG (0.0-30.0)
[2020-09-19 15:34] LABS: HEMOGLOBIN A1c 5.9 %
[2020-09-19 15:39] LABS: HEPATITIS C VIRUS ABY INDEX < 0.0 INDEX (<0.8)
== END ==
LOC: M SFHCPLAZ 10:48
PROVIDERS: ATTEND Internal Medicine
DX: R73.01 Impaired fasting glucose (principal); R80.9 Proteinuria, unspecified; Z11.59 Encounter for screening for other viral diseases; Z12.5 Encounter for screening for malignant neoplasm of prostate

== ENCOUNTER → 2020-09-24 | Outpatient (CLI) | payer OTHER ==
[~2020-09-24] MED LIST changes: -LISI10TA22 PO; +LISI10TA4 PO
--- NOTE | 2020-09-24 11:06 | REP ---
INDICATION: RESTAGING LEFT LOWER LOBE LUNG CANCER C34.32. COMPARISON: Comparison PET-CT studies are from January 24, 2020 and December 24, 2016. Comparison CT study of the chest is dated 04 September 2020.. TECHNIQUE: Forty-nine minutes following the intravenous injection of a 8.19 mCi dose of F-18 FDG, three-dimensional PET scintigraphy is acquired from the skull base to the proximal thighs. Triplanar noncontrast CT scanning is acquired through the same anatomic range for attenuation correction, and image registration with scan parameters optimized to minimize radiation exposure to the patient. PET scintigraphy and CT datasets were fused and displayed on a workstation with multiplanar and projection display capability. FINDINGS: The head and neck soft tissues are unremarkable. There is no abnormal hypermetabolic uptake in the pulmonary parenchyma on either side. The small nodular opacities in the right upper lobe, left upper lobe, and left lower lobe show no abnormal hypermetabolic uptake. Maximum standard uptake value in the pleural based nodule in the left lower lobe on the dome of the diaphragm is 1.57. There is no evidence of hilar or mediastinal hypermetabolic uptake. In the abdomen and pelvis normal distribution of FDG is seen. No abnormal hypermetabolic uptake is noted. IMPRESSION: Negative PET-CT study. No abnormal hypermetabolic uptake noted. <Electronically signed by Jose L Potter > 09/24/20 [id number]
== END ==
LOC: M PLARAD 07:30
PROVIDERS: ATTEND Specialist
DX: C34.32 Malignant neoplasm of lower lobe, left bronchus or lung (principal)
CPT/HCPCS: 78815; A9552

== ENCOUNTER → 2021-01-16 | Outpatient (REF) | payer OTHER ==
[~2021-01-16] MED LIST changes: +LISI10TA22 PO; -LISI10TA4 PO
== END ==
LOC: M PLALAB 09:50
PROVIDERS: ATTEND Internal Medicine
DX: R97.20 Elevated prostate specific antigen [PSA] (principal)

== ENCOUNTER → 2021-02-28 | Outpatient (CLI) | payer OTHER ==
[~2021-02-28] MED LIST changes: +ISOVUE-370 76% 100ML VIAL As Ordered ONE
--- NOTE | 2021-02-28 16:09 | REP ---
INDICATION: LUNG CA COMPARISON: Multiple the latest 09/04/2020 TECHNIQUE: Standard helical technique after the intravenous administration of 100 cc Isovue 370 FINDINGS: The mediastinum and pulmonary cruz appear stable. No definite mass or adenopathy has developed. There are no pleural or pericardial effusions. There is no significant change in appearance of the imaged upper abdomen or imaged osseous structures. Evaluation of the lung osorio shows no significant change in appearance of the asymmetric right upper lobe density. The asymmetric density seen previously in the left lower lobe has gotten smaller. The small asymmetric nodule seen previously in the apicoposterior segment of the left upper lobe is unchanged. The small chronic cystic airspace seen in the right upper lobe is unchanged. There are a few stable scattered curvilinear densities. There is a new asymmetric somewhat spiculated nodule in the right upper lobe posterior segment which measures 9 mm. IMPRESSION: 1. There is a new right upper lobe nodule as described above. According to the revised Fleischner society criteria this represents a category 4 X lesion potential given the patient has a history of carcinoma of the lung. This finding in and of itself may warrant PET-CT at this time. 2. Other findings as described above. <Electronically signed by Maurice Church > 02/28/21 0524
== END ==
LOC: M RAD 14:59
PROVIDERS: ATTEND Specialist
DX: C34.90 Malignant neoplasm of unspecified part of unspecified bronchus or lung (principal)
CPT/HCPCS: 71260; Q9967

== ENCOUNTER → 2021-03-13 | Outpatient (CLI) | payer OTHER ==
[~2021-03-13] MED LIST changes: -ISOVUE-370 76% 100ML VIAL As Ordered ONE
[2021-03-13 11:18] LABS: APPEARANCE, URINE CLEAR (CLEAR); BACTERIA, URINE AUTO NEGATIVE (NEGATIVE); BILIRUBIN, URINE AUTO NEGATIVE (NEGATIVE); BLOOD, URINE BLOOD 1+ (NEGATIVE); COLOR, URINE STRAW (YELLOW); GLUCOSE, URINE (UA) AUTO NEGATIVE (NEGATIVE); KETONE, URINE AUTO NEGATIVE (NEGATIVE); LEUKOCYTE ESTERASE, URINE AUTO NEGATIVE (NEGATIVE); NITRITE, URINE AUTO NEGATIVE (NEGATIVE); PROTEIN, URINE AUTO NEGATIVE (NEGATIVE); RBC, URINE AUTO 0 /HPF (0-3); SPECIFIC GRAVITY URINE AUTO 1.005 (1.002-1.035); SQUAMOUS EPITHELIAL CELL UR AU 0 /HPF (0-6); UROBILINOGEN, URINE AUTO 0.2 mg/dL (0.0-2.0); WBC, URINE AUTO 0 /HPF (0-3)
[2021-03-13 11:45] LABS: HEMOGLOBIN A1c 5.8 %
[2021-03-13 12:05] LABS: ALBUMIN 4.3 GM/DL (3.2-5.2); ALT/SGPT 27 U/L (12-78); BILIRUBIN,TOTAL 0.4 MG/DL (0.2-1.0); BLOOD UREA NITROGEN 13 MG/DL (7-18); CALCIUM LEVEL 9.2 MG/DL (8.8-10.2); CARBON DIOXIDE LEVEL 28 MEQ/L (21-32); CHLORIDE LEVEL 95 MEQ/L (98-107); CHOLESTEROL LEVEL 224 MG/DL (<200); CHOLESTEROL RISK RATIO 2.408 (<5); CREATININE FOR GFR 0.74 MG/DL (0.70-1.30); GLOMERULAR FILTRATION RATE > 60.0 (>49); GLUCOSE, FASTING 82 MG/DL (70-100); HDL CHOLESTEROL 93 MG/DL (>40); LDL CHOLESTEROL 116 MG/DL (<100); NON-HDL-C 131 MG/DL; POTASSIUM SERUM 3.7 MEQ/L (3.5-5.1); SODIUM LEVEL 132 MEQ/L (136-145); TOTAL PROTEIN 7.4 GM/DL (6.4-8.2); TRIGLYCERIDES LEVEL 73 MG/DL (<150)
[2021-03-13 12:20] LABS: CREATININE, URINE 25.9 MG/DL; MALB URINE SIEMENS 25.6 MG/L; MAU/CREAT RATIO 98.8 MCG/MG (0.0-30.0)
== END ==
LOC: M PLALAB 08:44
PROVIDERS: ATTEND Internal Medicine
DX: I10 Essential (primary) hypertension (principal)

== ENCOUNTER → 2021-03-19 | Outpatient (REF) | payer OTHER | LOC: M SMT 13:15 | PROVIDERS: ATTEND Nurse Practitioner Family | DX: N39.0 Urinary tract infection, site not specified (principal) ==

== ENCOUNTER → 2021-06-17 | Outpatient (CLI) | payer OTHER ==
[2021-06-18 23:11] LABS: PSA TOTAL 3.2 ng/mL (0.0-4.0)
== END ==
LOC: M PLALAB 09:27
PROVIDERS: ATTEND Nurse Practitioner Family
DX: R97.20 Elevated prostate specific antigen [PSA] (principal)

== ENCOUNTER → 2021-09-02 | Outpatient (CLI) | payer OTHER ==
[~2021-09-02] MED LIST changes: +ISOVUE-370 76% 100ML VIAL As Ordered ONE
== END ==
LOC: M RAD 08:19
PROVIDERS: ATTEND Specialist
DX: C34.90 Malignant neoplasm of unspecified part of unspecified bronchus or lung (principal)
CPT/HCPCS: 71260; Q9967

== ENCOUNTER → 2021-09-16 | Outpatient (CLI) | payer OTHER ==
[~2021-09-16] MED LIST changes: -ISOVUE-370 76% 100ML VIAL As Ordered ONE
[2021-09-16 14:16] LABS: APPEARANCE, URINE CLEAR (CLEAR); BACTERIA, URINE AUTO NEGATIVE (NEGATIVE); BILIRUBIN, URINE AUTO NEGATIVE (NEGATIVE); BLOOD, URINE BLOOD 1+ (NEGATIVE); COLOR, URINE STRAW (YELLOW); GLUCOSE, URINE (UA) AUTO NEGATIVE (NEGATIVE); KETONE, URINE AUTO TRACE mg/dL (NEGATIVE); LEUKOCYTE ESTERASE, URINE AUTO NEGATIVE (NEGATIVE); MUCUS, URINE SMALL (NEGATIVE); NITRITE, URINE AUTO NEGATIVE (NEGATIVE); PROTEIN, URINE AUTO NEGATIVE (NEGATIVE); RBC, URINE AUTO 0 /HPF (0-3); SPECIFIC GRAVITY URINE AUTO 1.003 (1.002-1.035); SQUAMOUS EPITHELIAL CELL UR AU 0 /HPF (0-6); UROBILINOGEN, URINE AUTO 0.2 mg/dL (0.0-2.0); WBC, URINE AUTO 0 /HPF (0-3)
[2021-09-16 14:33] LABS: CREATININE, URINE < 13.0 MG/DL; MALB URINE SIEMENS 29.8 MG/L
[2021-09-16 14:52] LABS: ALBUMIN 4.3 GM/DL (3.2-5.2); ALT/SGPT 21 U/L (12-78); BILIRUBIN,TOTAL 0.6 MG/DL (0.2-1.0); BLOOD UREA NITROGEN 9 MG/DL (7-18); CALCIUM LEVEL 9.8 MG/DL (8.8-10.2); CARBON DIOXIDE LEVEL 28 MEQ/L (21-32); CHLORIDE LEVEL 95 MEQ/L (98-107); CHOLESTEROL LEVEL 219 MG/DL (<200); CHOLESTEROL RISK RATIO 2.027 (<5); CREATININE FOR GFR 0.76 MG/DL (0.70-1.30); GLOMERULAR FILTRATION RATE > 60.0 (>49); GLUCOSE, FASTING 88 MG/DL (70-100); HDL CHOLESTEROL 108 MG/DL (>40); LDL CHOLESTEROL 99 MG/DL (<100); NON-HDL-C 111 MG/DL; POTASSIUM SERUM 4.2 MEQ/L (3.5-5.1); SODIUM LEVEL 133 MEQ/L (136-145); TOTAL PROTEIN 7.4 GM/DL (6.4-8.2); TRIGLYCERIDES LEVEL 61 MG/DL (<150)
[2021-09-16 15:16] LABS: HEMOGLOBIN A1c 5.7 %
== END ==
LOC: M PLALAB 09:49
PROVIDERS: ATTEND Internal Medicine
DX: I10 Essential (primary) hypertension (principal)

== ENCOUNTER → 2022-01-13 | Outpatient (CLI) | payer OTHER | LOC: M PLARAD 10:28 | PROVIDERS: ATTEND Specialist | DX: C34.90 Malignant neoplasm of unspecified part of unspecified bronchus or lung (principal) | CPT/HCPCS: 78815; A9552 ==

== ENCOUNTER → 2022-03-13 | Outpatient (CLI) | payer OTHER ==
[2022-03-13 10:46] LABS: BASO % 0.4 % (0.0-1.0); EOS # 0.1 10^3/uL (0.0-0.5); EOS % 1.1 % (0.0-3.0); HEMOGLOBIN 15.2 g/dl (13.5-17.5); LYMPH # 1.3 10^3/uL (1.5-5.0); LYMPH % 17.1 % (24.0-44.0); MEAN CORPUSCULAR HEMOGLOBIN 31.1 pg (27.0-33.0); MEAN CORPUSCULAR HGB CONC 33.8 g/dl (32.0-36.5); MONO # 0.8 10^3/uL (0.0-0.8); NEUTROPHILS # 5.3 10^3/uL (1.5-8.5); PLATELET COUNT, AUTOMATED 299 10^3/uL (150-450); RED BLOOD COUNT 4.89 10^6/uL (4.30-6.10); WHITE BLOOD COUNT 7.6 10^3/uL (4.0-10.0)
[2022-03-13 11:02] LABS: HEMOGLOBIN A1c 5.9 %
[2022-03-13 11:13] LABS: ALT/SGPT 22 U/L (12-78); BILIRUBIN,TOTAL 0.6 MG/DL (0.2-1.0); BLOOD UREA NITROGEN 8 MG/DL (7-18); CALCIUM LEVEL 9.8 MG/DL (8.8-10.2); CARBON DIOXIDE LEVEL 30 MEQ/L (21-32); CHLORIDE LEVEL 100 MEQ/L (98-107); CHOLESTEROL LEVEL 187 MG/DL (<200); CHOLESTEROL RISK RATIO 1.798 (<5); GLOMERULAR FILTRATION RATE > 60.0 (>49); GLUCOSE, FASTING 102 MG/DL (70-100); HDL CHOLESTEROL 104 MG/DL (>40); LDL CHOLESTEROL 75 MG/DL (<100); NON-HDL-C 83 MG/DL; POTASSIUM SERUM 4.9 MEQ/L (3.5-5.1); SODIUM LEVEL 135 MEQ/L (136-145); TRIGLYCERIDES LEVEL 40 MG/DL (<150)
== END ==
LOC: M PLALAB 08:49
PROVIDERS: ATTEND Internal Medicine
DX: R73.01 Impaired fasting glucose (principal); I10 Essential (primary) hypertension; E78.00 Pure hypercholesterolemia, unspecified; Z86.010 Personal history of colon polyps; R97.20 Elevated prostate specific antigen [PSA]

== ENCOUNTER → 2022-03-18 | Outpatient (CLI) | payer OTHER | LOC: M RAD 10:56 | PROVIDERS: ATTEND Internal Medicine Pulmonary Disease | DX: R91.1 Solitary pulmonary nodule (principal); Z85.118 Personal history of other malignant neoplasm of bronchus and lung ==

== ENCOUNTER → 2022-04-01 | Outpatient (CLI) | payer OTHER | LOC: M CARPUL 13:47 | PROVIDERS: ATTEND Internal Medicine Pulmonary Disease | DX: R91.1 Solitary pulmonary nodule (principal) ==

== ENCOUNTER → 2022-05-01 | Outpatient (CLI) | payer OTHER ==
[2022-05-01 13:54] LABS: PLATELET COUNT, AUTOMATED 291 10^3/uL (150-450)
[2022-05-01 14:06] LABS: INR 0.92; PROTHROMBIN TIME 12.8 SECONDS (12.7-14.5)
== END ==
LOC: M PLALAB 10:20
PROVIDERS: ATTEND Internal Medicine Pulmonary Disease
DX: R91.1 Solitary pulmonary nodule (principal)

== ENCOUNTER → 2022-06-05 | Outpatient (CLI) | payer OTHER | LOC: M LABSMTC 10:34 | PROVIDERS: ATTEND Anesthesiology | DX: Z01.818 Encounter for other preprocedural examination (principal); Z11.52 Encounter for screening for COVID-19 ==

== ENCOUNTER 2022-06-10 09:07 | Day surgery (SDC) | payer OTHER ==
[~2022-06-10] VITALS: Ht 170.2 cm; Wt 53.6 kg
[~2022-06-10 09:07] MED LIST changes: +NS 1,000 ML IV ONE
[2022-06-10] MEDS ORDERED: propofoL 200 MG/20 ML VIAL As Ordered ONE (12:31)
[2022-06-10] MEDS ORDERED: LIDOCAINE 2% 100MG/5ML SDV (FOR ANES.) As Ordered ONE (12:31)
[2022-06-10 13:10] VITALS: BP 139/72
== END 2022-06-10 13:20 | disposition home or self-care (01) ==
LOC: M OPP 09:07
PROVIDERS: ATTEND Internal Medicine Gastroenterology
DX: Z12.11 Encounter for screening for malignant neoplasm of colon (principal); Z86.010 Personal history of colon polyps; D12.3 Benign neoplasm of transverse colon; K57.30 Diverticulosis of large intestine without perforation or abscess without bleeding; K64.8 Other hemorrhoids; Z79.02 Long term (current) use of antithrombotics/antiplatelets; Z79.899 Other long term (current) drug therapy; Z88.0 Allergy status to penicillin; I10 Essential (primary) hypertension; E78.00 Pure hypercholesterolemia, unspecified; J44.9 Chronic obstructive pulmonary disease, unspecified; Z85.118 Personal history of other malignant neoplasm of bronchus and lung; Z92.21 Personal history of antineoplastic chemotherapy; F17.200 Nicotine dependence, unspecified, uncomplicated

== ENCOUNTER → 2022-06-19 | Outpatient (CLI) | payer OTHER ==
[~2022-06-19] MED LIST changes: -NS 1,000 ML IV ONE
[2022-06-21 15:42] LABS: PSA % FREE 16.7 % (.); PSA FREE 0.7 ng/mL; PSA TOTAL 4.2 ng/mL (0.0-4.0)
== END ==
LOC: M PLALAB 12:11
PROVIDERS: ATTEND Nurse Practitioner Family
DX: R97.20 Elevated prostate specific antigen [PSA] (principal)

== ENCOUNTER → 2022-07-23 | Outpatient (CLI) | payer OTHER | LOC: M PLAIMG 13:49 | PROVIDERS: ATTEND Internal Medicine Pulmonary Disease | DX: Z85.118 Personal history of other malignant neoplasm of bronchus and lung (principal); R91.1 Solitary pulmonary nodule ==

== ENCOUNTER → 2022-08-11 | Outpatient (CLI) | payer OTHER ==
[2022-08-11 13:30] LABS: PLATELET COUNT, AUTOMATED 334 10^3/uL (150-450)
[2022-08-11 13:50] LABS: INR 0.88; PROTHROMBIN TIME 12.1 SECONDS (12.5-14.5)
== END ==
LOC: M PLALAB 10:54
PROVIDERS: ATTEND Internal Medicine Pulmonary Disease
DX: R91.1 Solitary pulmonary nodule (principal)

== ENCOUNTER → 2022-08-11 | Outpatient (CLI) | payer OTHER | LOC: M LABSMTC 10:45 | PROVIDERS: ATTEND Anesthesiology | DX: Z01.818 Encounter for other preprocedural examination (principal); Z11.52 Encounter for screening for COVID-19 ==

== ENCOUNTER 2022-08-13 06:15 | Day surgery (SDC) | payer OTHER ==
[~2022-08-13] VITALS: Ht 167.6 cm; Wt 55.8 kg
[2022-08-13] MEDS ORDERED: LR 1,000 ML IV SCH ×2 (06:55→08:35)
[2022-08-13] MEDS ORDERED: ROCURONIUM BROMIDE 50MG/5ML VIAL As Ordered ONE (07:07)
[2022-08-13] MEDS ORDERED: propofoL 200 MG/20 ML VIAL As Ordered ONE (07:07)
[2022-08-13] MEDS ORDERED: SUGAMMADEX SODIUM 500 MG/5 ML VIAL (BRIDION) As Ordered ONE (07:07)
[2022-08-13] MEDS ORDERED: LIDOCAINE 2% 100MG/5ML SDV (FOR ANES.) As Ordered ONE (07:07)
[2022-08-13] MEDS ORDERED: ONDANSETRON 4MG 2ML VIAL As Ordered ONE (07:07)
[2022-08-13] MEDS ORDERED: fentaNYL 100 MCG/2 ML INJECTION As Ordered ONE (07:07)
[2022-08-13] MEDS ORDERED: MIDAZOLAM INJ 2MG/2ML VIAL (J2250 PER 1MG) As Ordered ONE (07:08)
[2022-08-13] MEDS ORDERED: CETACAINE SPRAY 5GM As Ordered ONE (07:11)
[2022-08-13] MEDS ORDERED: THROMBIN 5,000 UNITS VIAL As Ordered ONE (07:11)
[2022-08-13] MEDS ORDERED: EPINEPHrine 1MG/10ML SYRINGE 1.5IN As Ordered ONE (07:12)
[2022-08-13] MEDS ORDERED: HYDROMORPHONE HCL 0.5 MG/ 0.5 ML SYRINGE (J1170 PER 1) IV PRN (08:35)
[2022-08-13] MEDS ORDERED: ONDANSETRON 4MG 2ML VIAL IV PRN (08:35)
[2022-08-13] MEDS ORDERED: fentaNYL 100 MCG/2 ML INJECTION IV PRN (08:35)
[2022-08-13] MEDS ORDERED: oxyCODONE 5MG TAB PO PRN (08:35)
[2022-08-13 11:00] VITALS: BP 105/58
== END 2022-08-13 11:05 | disposition home or self-care (01) ==
LOC: M SDC 06:15
PROVIDERS: ATTEND Internal Medicine Pulmonary Disease
DX: R91.8 Other nonspecific abnormal finding of lung field (principal); J44.9 Chronic obstructive pulmonary disease, unspecified; Z90.2 Acquired absence of lung [part of]; I10 Essential (primary) hypertension; E78.00 Pure hypercholesterolemia, unspecified; K21.9 Gastro-esophageal reflux disease without esophagitis; Z85.118 Personal history of other malignant neoplasm of bronchus and lung; F17.210 Nicotine dependence, cigarettes, uncomplicated; Z88.0 Allergy status to penicillin; Z79.899 Other long term (current) drug therapy
CPT/HCPCS: 31623; 31624; 31627; 31654; 71045; 76000; 88104; 88108; 88313; 93005; J0171; J1100; J2250; J2405; J3010; S2900

== ENCOUNTER 2022-09-20 10:21 | Inpatient (IN) | payer OTHER ==
[~2022-09-20] VITALS: Ht 167.6 cm; Wt 55.0 kg
[~2022-09-20 10:21] MED LIST changes: +FLUT1BLS8 INH
[2022-09-20] MEDS ORDERED: ALBU8.5H INH (10:38)
[2022-09-20 11:30] LABS: BASO % 0.2 % (0.0-1.0); EOS # 0.2 10^3/uL (0.0-0.5); EOS % 2.1 % (0.0-3.0); HEMATOCRIT 40.7 % (42.0-52.0); LYMPH # 1.1 10^3/uL (1.5-5.0); LYMPH % 11.6 % (24.0-44.0); MEAN CORPUSCULAR HEMOGLOBIN 31.5 pg (27.0-33.0); MEAN CORPUSCULAR HGB CONC 34.4 g/dl (32.0-36.5); MEAN CORPUSCULAR VOLUME 91.7 fl (80.0-96.0); MONO % 10.6 % (2.0-8.0); NEUTROPHILS % 75.1 % (36.0-66.0); PLATELET COUNT, AUTOMATED 279 10^3/uL (150-450); RED BLOOD COUNT 4.44 10^6/uL (4.30-6.10); WHITE BLOOD COUNT 9.3 10^3/uL (4.0-10.0)
[2022-09-20 11:57] LABS: BLOOD UREA NITROGEN 10 MG/DL (9-23); CARBON DIOXIDE LEVEL 28 MMOL/L (20-31); CHLORIDE LEVEL 96 MMOL/L (98-107); CREATININE FOR GFR 0.66 MG/DL (0.70-1.30); GLOMERULAR FILTRATION RATE > 60.0 (>49); GLUCOSE, FASTING 101 MG/DL (74-106); SODIUM LEVEL 132 MMOL/L (136-145)
[2022-09-20] MEDS ORDERED: levETIRAcetam INJection 1,000 MG in D5W 100 ML IV ONE (12:00)
[2022-09-20 12:09] LABS: RSV AMPLIFICATION NEGATIVE (NEGATIVE)
[2022-09-20] MEDS ORDERED: HOME MED LIST COMPLETE! XX SCH (13:10)
[2022-09-20 15:38] VITALS: BP 97/52
[2022-09-20] MEDS: SYMBICORT 160/4.5MCG INHALER 6GM INH SCH ×2 (15:45→19:48)
[2022-09-20] MEDS: TIOTROPIUM INHALER/CAPSULE (SPIRIVA) INH SCH (15:45)
[2022-09-20 20:00] VITALS: BP 92/54
[2022-09-20] MEDS: OMEPRAZOLE 20MG CAP PO SCH (20:26)
[2022-09-20] MEDS ORDERED: levETIRAcetam 250MG TABLET (KEPPRA) PO SCH (21:00)
[2022-09-21] VITALS: BP 97/52
[2022-09-21 04:00] VITALS: BP 105/55
[2022-09-21 05:52] LABS: BASO % 0.1 % (0.0-1.0); EOS % 0.1 % (0.0-3.0); HEMATOCRIT 39.1 % (42.0-52.0); HEMOGLOBIN 13.5 g/dl (13.5-17.5); LYMPH # 0.7 10^3/uL (1.5-5.0); LYMPH % 6.5 % (24.0-44.0); MEAN CORPUSCULAR HEMOGLOBIN 31.4 pg (27.0-33.0); MEAN CORPUSCULAR HGB CONC 34.5 g/dl (32.0-36.5); MEAN CORPUSCULAR VOLUME 90.9 fl (80.0-96.0); MONO # 0.4 10^3/uL (0.0-0.8); MONO % 3.9 % (2.0-8.0); NEUTROPHILS # 8.9 10^3/uL (1.5-8.5); NEUTROPHILS % 88.8 % (36.0-66.0); PLATELET COUNT, AUTOMATED 275 10^3/uL (150-450); WHITE BLOOD COUNT 10.1 10^3/uL (4.0-10.0)
[2022-09-21 06:04] LABS: INR 0.91; PROTHROMBIN TIME 12.4 SECONDS (12.5-14.5)
[2022-09-21 06:12] LABS: ALBUMIN 3.7 G/DL (3.2-5.2); ALKALINE PHOSPHATASE 59 U/L (46-116); ALT/SGPT 14 U/L (7.0-40); AST/SGOT 14 U/L (<34); BILIRUBIN,TOTAL 0.4 MG/DL (0.3-1.2); BLOOD UREA NITROGEN 11 MG/DL (9-23); CALCIUM LEVEL 9.3 MG/DL (8.3-10.6); CARBON DIOXIDE LEVEL 27 MMOL/L (20-31); CHLORIDE LEVEL 98 MMOL/L (98-107); GLOMERULAR FILTRATION RATE > 60.0 (>49); GLUCOSE, FASTING 150 MG/DL (74-106); POTASSIUM SERUM 3.8 MMOL/L (3.5-5.1); SODIUM LEVEL 134 MMOL/L (136-145); TOTAL PROTEIN 6.1 G/DL (5.7-8.2)
[2022-09-21 07:57] VITALS: BP 109/59
[2022-09-21] MEDS: SYMBICORT 160/4.5MCG INHALER 6GM INH SCH ×2 (08:17→19:10)
[2022-09-21] MEDS: TIOTROPIUM INHALER/CAPSULE (SPIRIVA) INH SCH (08:17)
[2022-09-21] MEDS: OMEPRAZOLE 20MG CAP PO SCH ×2 (08:56→21:27)
[2022-09-21 11:35] VITALS: BP 100/52
[2022-09-21 16:43] VITALS: BP 108/51
[2022-09-21 20:00] VITALS: BP 101/49
[2022-09-22] VITALS: BP 121/60
[2022-09-22] MEDS: ACETAMINOPHEN TAB 650MG DOSE (2X325MG) PO PRN ×2 (00:26→22:38)
[2022-09-22 04:00] VITALS: BP 116/57
[2022-09-22 04:04] LABS: BASO % 0.1 % (0.0-1.0); HEMATOCRIT 37.6 % (42.0-52.0); HEMOGLOBIN 13.1 g/dl (13.5-17.5); LYMPH # 0.6 10^3/uL (1.5-5.0); MEAN CORPUSCULAR HEMOGLOBIN 31.4 pg (27.0-33.0); MEAN CORPUSCULAR HGB CONC 34.8 g/dl (32.0-36.5); MEAN CORPUSCULAR VOLUME 90.2 fl (80.0-96.0); MONO # 0.5 10^3/uL (0.0-0.8); MONO % 4.1 % (2.0-8.0); NEUTROPHILS # 11.1 10^3/uL (1.5-8.5); NEUTROPHILS % 90.2 % (36.0-66.0); PLATELET COUNT, AUTOMATED 269 10^3/uL (150-450); RED BLOOD COUNT 4.17 10^6/uL (4.30-6.10); WHITE BLOOD COUNT 12.3 10^3/uL (4.0-10.0)
[2022-09-22 04:29] LABS: BLOOD UREA NITROGEN 12 MG/DL (9-23); CALCIUM LEVEL 8.9 MG/DL (8.3-10.6); CARBON DIOXIDE LEVEL 27 MMOL/L (20-31); CHLORIDE LEVEL 99 MMOL/L (98-107); CREATININE FOR GFR 0.67 MG/DL (0.70-1.30); GLOMERULAR FILTRATION RATE > 60.0 (>49); GLUCOSE, FASTING 141 MG/DL (74-106); POTASSIUM SERUM 3.9 MMOL/L (3.5-5.1); SODIUM LEVEL 135 MMOL/L (136-145)
[2022-09-22 08:03] VITALS: BP 128/60
[2022-09-22] MEDS: TIOTROPIUM INHALER/CAPSULE (SPIRIVA) INH SCH (08:33)
[2022-09-22] MEDS: SYMBICORT 160/4.5MCG INHALER 6GM INH SCH ×2 (08:33→19:29)
[2022-09-22] MEDS: OMEPRAZOLE 20MG CAP PO SCH ×2 (09:17→20:10)
[2022-09-22] MEDS ORDERED: PROHANCE 279.3MG/ML 15ML VIAL As Ordered ONE (10:39)
[2022-09-22 12:32] VITALS: BP 118/61
[2022-09-22] MEDS ORDERED: LISI2.5T9 PO (12:39)
[2022-09-22] MEDS ORDERED: PRIL20TA2 PO (12:39)
[2022-09-22] MEDS ORDERED: DEXA4TA PO (12:39)
[2022-09-22 15:59] VITALS: BP 115/59
[2022-09-22] MEDS ORDERED: ALBUTEROL 90 MCG/ACT 8GM HFA INHALER INH PRN (17:00)
[2022-09-22 20:45] VITALS: BP 124/62
[2022-09-23 00:48] VITALS: BP 117/59
[2022-09-23 04:44] VITALS: BP 125/58
[2022-09-23 05:02] LABS: BASO % 0.1 % (0.0-1.0); EOS % 0.1 % (0.0-3.0); HEMATOCRIT 37.7 % (42.0-52.0); HEMOGLOBIN 12.9 g/dl (13.5-17.5); LYMPH # 0.7 10^3/uL (1.5-5.0); LYMPH % 7.6 % (24.0-44.0); MEAN CORPUSCULAR HEMOGLOBIN 31.6 pg (27.0-33.0); MEAN CORPUSCULAR HGB CONC 34.2 g/dl (32.0-36.5); MEAN CORPUSCULAR VOLUME 92.4 fl (80.0-96.0); MONO # 0.5 10^3/uL (0.0-0.8); MONO % 4.7 % (2.0-8.0); NEUTROPHILS # 8.2 10^3/uL (1.5-8.5); NEUTROPHILS % 86.9 % (36.0-66.0); PLATELET COUNT, AUTOMATED 255 10^3/uL (150-450); RED BLOOD COUNT 4.08 10^6/uL (4.30-6.10); WHITE BLOOD COUNT 9.5 10^3/uL (4.0-10.0)
[2022-09-23 05:33] LABS: BLOOD UREA NITROGEN 13 MG/DL (9-23); CALCIUM LEVEL 8.6 MG/DL (8.3-10.6); CARBON DIOXIDE LEVEL 28 MMOL/L (20-31); CHLORIDE LEVEL 100 MMOL/L (98-107); CREATININE FOR GFR 0.64 MG/DL (0.70-1.30); GLOMERULAR FILTRATION RATE > 60.0 (>49); GLUCOSE, FASTING 122 MG/DL (74-106); POTASSIUM SERUM 4.1 MMOL/L (3.5-5.1); SODIUM LEVEL 136 MMOL/L (136-145)
[2022-09-23] MEDS: SYMBICORT 160/4.5MCG INHALER 6GM INH SCH (06:00)
[2022-09-23] MEDS: TIOTROPIUM INHALER/CAPSULE (SPIRIVA) INH SCH (06:00)
[2022-09-23 08:00] VITALS: BP 106/65
[2022-09-23] MEDS: ACETAMINOPHEN TAB 650MG DOSE (2X325MG) PO PRN (08:49)
[2022-09-23] MEDS: OMEPRAZOLE 20MG CAP PO SCH (08:49)
== END 2022-09-23 11:45 | disposition home or self-care (01) | DRG 41 ==
LOC: M ED 10:21 → M ED INP 13:35 → ENRESERV 15:09 → M PCU 15:38
PROVIDERS: ADMIT Internal Medicine Nephrology; ATTEND Internal Medicine Nephrology
DX: C79.31 Secondary malignant neoplasm of brain (principal); G93.5 Compression of brain; E43 Unspecified severe protein-calorie malnutrition; G93.6 Cerebral edema; C34.12 Malignant neoplasm of upper lobe, left bronchus or lung; J44.9 Chronic obstructive pulmonary disease, unspecified; E87.1 Hypo-osmolality and hyponatremia; F17.200 Nicotine dependence, unspecified, uncomplicated; R73.01 Impaired fasting glucose; E78.00 Pure hypercholesterolemia, unspecified; I10 Essential (primary) hypertension; K21.9 Gastro-esophageal reflux disease without esophagitis; Z79.899 Other long term (current) drug therapy; Z88.0 Allergy status to penicillin; Z68.1 Body mass index [BMI] 19.9 or less, adult; Z98.41 Cataract extraction status, right eye; Z98.42 Cataract extraction status, left eye

== ENCOUNTER 2022-09-22 14:29 | Outpatient (RCR) | payer OTHER ==
[~2022-09-22 14:29] MED LIST changes: +ALBU8.5H INH; +DEXA4TA PO; +LISI2.5T9 PO
== END 2022-09-23 ==
LOC: M ONCR 14:29
PROVIDERS: ATTEND General Practice
DX: C79.31 Secondary malignant neoplasm of brain (principal)

== ENCOUNTER 2022-10-16 13:39 | Outpatient (RCR) | payer OTHER | END 2022-10-21 | LOC: M ONCR 13:39 | PROVIDERS: ATTEND General Practice | DX: C79.31 Secondary malignant neoplasm of brain (principal) ==

== ENCOUNTER → 2022-10-21 | Outpatient (CLI) | payer OTHER | LOC: M LABSMTC 09:45 | PROVIDERS: ATTEND Anesthesiology | DX: Z01.812 Encounter for preprocedural laboratory examination (principal) ==

== ENCOUNTER → 2022-10-23 | Outpatient (CLI) | payer OTHER ==
[~2022-10-23] MED LIST changes: +LIDOCAINE 1% MDV 20ML VIAL As Ordered ONE; +MIDAZOLAM INJ 2MG/2ML VIAL As Ordered ONE; +NS 1,000 ML IV SCH; +VANCOMYCIN 1000MG/20ML VIAL As Ordered ONE; +VANCOMYCIN HCL 1,000 MG, VIAL MATE ADAPTER 1 EACH in NS 250 ML IV ONE; +diphenhydrAMINE 50MG/ML VIAL As Ordered ONE; +fentaNYL 100 MCG/2 ML INJECTION As Ordered ONE
[2022-10-23 12:10] VITALS: BP 133/67
== END ==
LOC: M IRPRO 08:24
PROVIDERS: ATTEND Specialist
DX: C34.90 Malignant neoplasm of unspecified part of unspecified bronchus or lung (principal)
CPT/HCPCS: 36561; 99152; 99153; C1769; C1788; C1894; J1200; J1642; J1644; J2250; J3010; J3370

== ENCOUNTER → 2022-11-11 | Outpatient (POV) | payer OTHER ==
[~2022-11-11] VITALS: Ht 167.6 cm; Wt 59.5 kg
[~2022-11-11] MED LIST changes: -LIDOCAINE 1% MDV 20ML VIAL As Ordered ONE; -MIDAZOLAM INJ 2MG/2ML VIAL As Ordered ONE; -NS 1,000 ML IV SCH; -VANCOMYCIN 1000MG/20ML VIAL As Ordered ONE; -VANCOMYCIN HCL 1,000 MG, VIAL MATE ADAPTER 1 EACH in NS 250 ML IV ONE; -diphenhydrAMINE 50MG/ML VIAL As Ordered ONE; -fentaNYL 100 MCG/2 ML INJECTION As Ordered ONE
[2022-11-11 11:20] VITALS: BP 137/73
== END ==
LOC: M IRPOV 11:10
PROVIDERS: ATTEND Radiology Diagnostic Radiology
DX: Z45.2 Encounter for adjustment and management of vascular access device (principal); Z88.0 Allergy status to penicillin

== ENCOUNTER 2022-11-14 13:45 | Outpatient (RCR) | payer OTHER ==
[2022-11-11 14:34] LABS: BASO % 0.3 % (0.0-1.0); EOS % 0.2 % (0.0-3.0); HEMATOCRIT 42.5 % (42.0-52.0); HEMOGLOBIN 14.4 g/dl (13.5-17.5); LYMPH # 0.7 10^3/uL (1.5-5.0); LYMPH % 5.5 % (24.0-44.0); MEAN CORPUSCULAR HEMOGLOBIN 31.4 pg (27.0-33.0); MEAN CORPUSCULAR HGB CONC 33.9 g/dl (32.0-36.5); MEAN CORPUSCULAR VOLUME 92.6 fl (80.0-96.0); MONO # 0.5 10^3/uL (0.0-0.8); MONO % 4.1 % (2.0-8.0); NEUTROPHILS # 10.6 10^3/uL (1.5-8.5); NEUTROPHILS % 87.7 % (36.0-66.0); PLATELET COUNT, AUTOMATED 201 10^3/uL (150-450); RED BLOOD COUNT 4.59 10^6/uL (4.30-6.10); WHITE BLOOD COUNT 12.1 10^3/uL (4.0-10.0)
[2022-11-11 15:00] LABS: ALBUMIN 2.9 G/DL (3.2-5.2); ALKALINE PHOSPHATASE 74 U/L (46-116); ALT/SGPT 35 U/L (7.0-40); AST/SGOT 16 U/L (<34); BILIRUBIN,TOTAL 0.4 MG/DL (0.3-1.2); BLOOD UREA NITROGEN 17 MG/DL (9-23); CALCIUM LEVEL 8.5 MG/DL (8.3-10.6); CARBON DIOXIDE LEVEL 28 MMOL/L (20-31); CHLORIDE LEVEL 101 MMOL/L (98-107); CREATININE FOR GFR 0.66 MG/DL (0.70-1.30); GLOMERULAR FILTRATION RATE > 60.0 (>49); GLUCOSE, FASTING 177 MG/DL (74-106); POTASSIUM SERUM 3.6 MMOL/L (3.5-5.1); SODIUM LEVEL 138 MMOL/L (136-145); TOTAL PROTEIN 5.7 G/DL (5.7-8.2)
[2022-11-24] MEDS ORDERED: LISI2.5T9 PO (13:06)
== END 2022-11-21 ==
LOC: M ONCR 13:45
PROVIDERS: ATTEND General Practice
DX: C34.12 Malignant neoplasm of upper lobe, left bronchus or lung (principal); C79.31 Secondary malignant neoplasm of brain

== ENCOUNTER → 2022-12-10 | Outpatient (CLI) | payer OTHER ==
[~2022-12-10] MED LIST changes: +ONDA4TAB6 PO
== END ==
LOC: M PLAIMG 10:24
PROVIDERS: ATTEND Internal Medicine Hematology
DX: M54.50 Low back pain, unspecified (principal)

== ENCOUNTER → 2022-12-23 | Outpatient (CLI) | payer OTHER ==
[~2022-12-23] MED LIST changes: +PROHANCE 279.3MG/ML 15ML VIAL As Ordered ONE
== END ==
LOC: M RAD 11:14
PROVIDERS: ATTEND General Practice
DX: C79.31 Secondary malignant neoplasm of brain (principal)
CPT/HCPCS: 70553; A9576

== ENCOUNTER 2023-02-17 09:24 | Outpatient (CLI) | payer OTHER ==
[~2023-02-17] VITALS: Ht 167.6 cm; Wt 62.0 kg
[~2023-02-17 09:24] MED LIST changes: +ALBUTEROL SULFATE 2.5MG/0.5ML INH NEB SOLN INH PRN; +EPINEPHrine INJ 1 MG/ML 1ML AMP IM PRN; +diphenhydrAMINE 50MG/ML VIAL IV PRN; +methylPREDNISolone 125MG 2ML VIAL IV PRN
[2023-02-17] MEDS ORDERED: NS 1,000 ML IV SCH (09:30)
[2023-02-17] MEDS ORDERED: FERRIC CARBOXYMALTOSE INJ 750 MG in NS 250 ML (>50kg) IV ONE ×3 (09:30)
[2023-02-17 09:53] VITALS: BP 147/66; O2SAT 98
[2023-02-17 10:55] VITALS: BP 124/89; O2SAT 99
== END 2023-02-17 10:53 | disposition home or self-care (01) ==
LOC: M INFU 09:24
PROVIDERS: ATTEND Internal Medicine Hematology
DX: D50.9 Iron deficiency anemia, unspecified (principal); Z88.0 Allergy status to penicillin
CPT/HCPCS: 96365; J1439

== ENCOUNTER → 2023-02-17 | Outpatient (CLI) | payer OTHER ==
[~2023-02-17] MED LIST changes: +DEXA5TA PO; -PROHANCE 279.3MG/ML 15ML VIAL As Ordered ONE
== END ==
LOC: M ONCR 13:23
PROVIDERS: ATTEND General Practice
DX: C34.31 Malignant neoplasm of lower lobe, right bronchus or lung (principal); C34.12 Malignant neoplasm of upper lobe, left bronchus or lung; C79.31 Secondary malignant neoplasm of brain; F17.218 Nicotine dependence, cigarettes, with other nicotine-induced disorders; Z71.2 Person consulting for explanation of examination or test findings; Z79.51 Long term (current) use of inhaled steroids; Z79.899 Other long term (current) drug therapy; Z88.0 Allergy status to penicillin; Z88.1 Allergy status to other antibiotic agents; Z90.2 Acquired absence of lung [part of]; Z92.21 Personal history of antineoplastic chemotherapy

== ENCOUNTER 2023-02-25 09:30 | Outpatient (CLI) | payer OTHER ==
[~2023-02-25] VITALS: Ht 167.6 cm; Wt 62.7 kg
[2023-02-25 09:30] VITALS: BP 108/52; O2SAT 99
[~2023-02-25 09:30] MED LIST changes: +FERRIC CARBOXYMALTOSE INJ 750 MG in NS 250 ML (>50kg) IV ONE; +NS 1,000 ML IV SCH
[2023-02-25 10:59] VITALS: BP 128/61; O2SAT 99
== END 2023-02-25 11:00 ==
LOC: M INFU 09:30
PROVIDERS: ATTEND Internal Medicine Hematology
DX: E61.1 Iron deficiency (principal); Z88.0 Allergy status to penicillin
CPT/HCPCS: 96365; J1439

== ENCOUNTER → 2023-05-04 | Outpatient (CLI) | payer OTHER ==
[~2023-05-04] MED LIST changes: -ALBUTEROL SULFATE 2.5MG/0.5ML INH NEB SOLN INH PRN; -EPINEPHrine INJ 1 MG/ML 1ML AMP IM PRN; -FERRIC CARBOXYMALTOSE INJ 750 MG in NS 250 ML (>50kg) IV ONE; +GASTROGRAFIN SOLUTION 30ML As Ordered ONE; +ISOVUE-370 76% 100ML VIAL As Ordered ONE; -NS 1,000 ML IV SCH; +POTA-151 PO; -diphenhydrAMINE 50MG/ML VIAL IV PRN; -methylPREDNISolone 125MG 2ML VIAL IV PRN
== END ==
LOC: M RAD 13:01
PROVIDERS: ATTEND Nurse Practitioner
DX: C34.90 Malignant neoplasm of unspecified part of unspecified bronchus or lung (principal)
CPT/HCPCS: 71260; 74177; Q9963; Q9967

== ENCOUNTER → 2023-06-02 | Outpatient (CLI) | payer OTHER ==
[~2023-06-02] MED LIST changes: +ACET300T48 PO; +DULC5TAB PO; +FLEEENE12 PR; -GASTROGRAFIN SOLUTION 30ML As Ordered ONE; -ISOVUE-370 76% 100ML VIAL As Ordered ONE; +MAGN100T PO; +MELO15TA28; +PROHANCE 279.3MG/ML 5ML VIAL ONE
== END ==
LOC: M PLAIMG 09:09
PROVIDERS: ATTEND General Practice
DX: C79.31 Secondary malignant neoplasm of brain (principal)

== ENCOUNTER → 2023-06-26 | Outpatient (REF) | payer OTHER ==
[~2023-06-26] MED LIST changes: -PROHANCE 279.3MG/ML 5ML VIAL ONE
== END ==
LOC: M SMT 10:29
PROVIDERS: ATTEND Physician Assistant
DX: R97.20 Elevated prostate specific antigen [PSA] (principal)

== ENCOUNTER 2023-07-26 12:38 | Inpatient (IN) | payer OTHER ==
[~2023-07-26] VITALS: Ht 167.6 cm; Wt 54.5 kg
[~2023-07-26 12:38] MED LIST changes: -MELO15TA28; +MELO15TA28 PO
[2023-07-26] MEDS ORDERED: NS 1,000 ML IV ONE (14:00)
[2023-07-26 14:11] LABS: HEMATOCRIT 30.7 % (42.0-52.0); HEMOGLOBIN 10.4 g/dl (13.5-17.5); MEAN CORPUSCULAR HEMOGLOBIN 30.6 pg (27.0-33.0); MEAN CORPUSCULAR HGB CONC 33.9 g/dl (32.0-36.5); MEAN CORPUSCULAR VOLUME 90.3 fl (80.0-96.0); PLATELET COUNT, AUTOMATED 247 10^3/uL (150-450)
[2023-07-26 14:32] LABS: ALBUMIN 2.6 G/DL (3.2-5.2); ALKALINE PHOSPHATASE 215 U/L (46-116); ALT/SGPT 19 U/L (7.0-40); AST/SGOT 15 U/L (<34); BLOOD UREA NITROGEN 14 MG/DL (9-23); CALCIUM LEVEL 7.2 MG/DL (8.3-10.6); CARBON DIOXIDE LEVEL 19 MMOL/L (20-31); CHLORIDE LEVEL 103 MMOL/L (98-107); CREATININE FOR GFR 0.72 MG/DL (0.70-1.30); GLOMERULAR FILTRATION RATE > 60.0 (>49); GLUCOSE, FASTING 125 MG/DL (74-106); POTASSIUM SERUM 4.4 MMOL/L (3.5-5.1); SODIUM LEVEL 134 MMOL/L (136-145); TOTAL PROTEIN 6.1 G/DL (5.7-8.2)
[2023-07-26 14:43] LABS: ATYPICAL LYMPH 2 % (0-5); LYMPHOCYTES 4 % (16-44); MONOCYTES 20 % (0-5); NEUTROPHILS 64 % (28-66)
[2023-07-26 14:44] LABS: PLATELET ESTIMATE NORMAL (NORMAL)
[2023-07-26] MEDS ORDERED: ACETAMINOPHEN TAB 650MG DOSE (2X325MG) PO ONE (14:55)
[2023-07-26] MEDS ORDERED: LevoFLOXacin IV 750 MG in IV 1 EA IV ONE (14:55)
[2023-07-26] MEDS ORDERED: NS 500 ML IV ONE (15:25)
[2023-07-26] MEDS ORDERED: MORPHINE 4 MG/ML 1ML VIAL IV ONE (15:50)
[2023-07-26] MEDS ORDERED: VANCOMYCIN HCL 1,000 MG, VIAL MATE ADAPTER 1 EACH in D5W 250 ML IV SCH (16:25)
[2023-07-26] MEDS ORDERED: IBUPROFEN 400MG TAB PO ONE (16:35)
[2023-07-26] MEDS ORDERED: LR 1,000 ML IV ONE (16:55)
[2023-07-26] MEDS: LR 1,000 ML IV SCH ×2 (17:53→19:21)
[2023-07-26] MEDS ORDERED: VANCOMYCIN HCL 750 MG, VIAL MATE ADAPTER 1 EACH in D5W 250 ML IV ONE (18:00)
[2023-07-26] MEDS ORDERED: VANCOMYCIN HCL 500 MG in D5W MINI-BAG PLUS 100 ML IV ONE (19:00)
[2023-07-26] MEDS ORDERED: SIMV20TA22 PO (20:29)
[2023-07-26] MEDS ORDERED: OMEP-173 PO (20:29)
[2023-07-26] MEDS ORDERED: LISI2.5T9 PO (20:29)
[2023-07-26] MEDS ORDERED: ACET-645 PO (20:29)
[2023-07-26] MEDS ORDERED: HOME MED LIST COMPLETE! XX SCH (20:35)
[2023-07-26] MEDS: SYMBICORT 80/4.5MCG INHALER 6GM INH SCH (20:54)
[2023-07-26] MEDS: LEVALBUTEROL 1.25MG 0.5ML CONCENTRATE NEB NEB SCH (20:55)
[2023-07-26 21:25] VITALS: BP 115/59; TEMP 97.7; O2SAT 97
[2023-07-27] VITALS (9 sets, daily range): BP systolic 94–126; BP diastolic 53–58; TEMP 97.7–103.4; O2SAT 18–97
[2023-07-27] MEDS: ACETAMINOPHEN TAB 650MG DOSE (2X325MG) PO PRN ×2 (00:38→16:45)
[2023-07-27] MEDS: VANCOMYCIN HCL 750 MG, VIAL MATE ADAPTER 1 EACH in D5W 250 ML IV SCH ×2 (00:40→11:57)
[2023-07-27] MEDS: LR 1,000 ML IV SCH (01:50)
[2023-07-27 07:36] LABS: HEMATOCRIT 25.6 % (42.0-52.0); HEMOGLOBIN 8.7 g/dl (13.5-17.5); MEAN CORPUSCULAR HEMOGLOBIN 30.7 pg (27.0-33.0); MEAN CORPUSCULAR VOLUME 90.5 fl (80.0-96.0); PLATELET COUNT, AUTOMATED 221 10^3/uL (150-450); RED BLOOD COUNT 2.83 10^6/uL (4.30-6.10); WHITE BLOOD COUNT 13.1 10^3/uL (4.0-10.0)
[2023-07-27] MEDS: LEVALBUTEROL 1.25MG 0.5ML CONCENTRATE NEB NEB SCH ×4 (08:00→19:43)
[2023-07-27 08:08] LABS: BLOOD UREA NITROGEN 8 MG/DL (9-23); CALCIUM LEVEL 7.5 MG/DL (8.3-10.6); CARBON DIOXIDE LEVEL 21 MMOL/L (20-31); CHLORIDE LEVEL 105 MMOL/L (98-107); CREATININE FOR GFR 0.55 MG/DL (0.70-1.30); GLOMERULAR FILTRATION RATE > 60.0 (>49); GLUCOSE, FASTING 106 MG/DL (74-106); POTASSIUM SERUM 3.9 MMOL/L (3.5-5.1); SODIUM LEVEL 138 MMOL/L (136-145)
[2023-07-27] MEDS: SIMVASTATIN 20 MG TAB PO SCH (08:18)
[2023-07-27] MEDS: OMEPRAZOLE 20MG CAP PO SCH (08:18)
[2023-07-27] MEDS: ACETAMINOPH W/CODEINE #3 TAB UD PO PRN (08:18)
[2023-07-27] MEDS: ENOXAPARIN 40MG/0.4ML SYRINGE (J1650 PER 10MG) SC SCH (08:18)
[2023-07-27] MEDS: TIOTROPIUM INHALER/CAPSULE (SPIRIVA) INH SCH (09:16)
[2023-07-27] MEDS: SYMBICORT 80/4.5MCG INHALER 6GM INH SCH ×2 (09:16→19:51)
[2023-07-27] MEDS: LevoFLOXacin IV 750 MG in IV 1 EA IV SCH (16:45)
[2023-07-27 17:30] LABS: PROCALCITONIN 4.12 ng/ml
[2023-07-27] MEDS ORDERED: IBUPROFEN 400MG TAB PO ONE (17:45)
[2023-07-27] MEDS ORDERED: VANCOMYCIN HCL 1,000 MG, VIAL MATE ADAPTER 1 EACH in D5W 250 ML IV SCH (20:00)
[2023-07-28] VITALS (7 sets, daily range): BP systolic 102–115; BP diastolic 50–59; TEMP 97.3–99.2; O2SAT 96–100
[2023-07-28 06:36] LABS: HEMATOCRIT 25.8 % (42.0-52.0); HEMOGLOBIN 8.9 g/dl (13.5-17.5); MEAN CORPUSCULAR HEMOGLOBIN 30.7 pg (27.0-33.0); MEAN CORPUSCULAR HGB CONC 34.5 g/dl (32.0-36.5); PLATELET COUNT, AUTOMATED 285 10^3/uL (150-450); WHITE BLOOD COUNT 15.2 10^3/uL (4.0-10.0)
[2023-07-28] MEDS: ACETAMINOPH W/CODEINE #3 TAB UD PO PRN ×2 (06:42→15:50)
[2023-07-28 07:02] LABS: BLOOD UREA NITROGEN 7 MG/DL (9-23); CALCIUM LEVEL 7.4 MG/DL (8.3-10.6); CARBON DIOXIDE LEVEL 24 MMOL/L (20-31); CHLORIDE LEVEL 105 MMOL/L (98-107); CREATININE FOR GFR 0.52 MG/DL (0.70-1.30); GLOMERULAR FILTRATION RATE > 60.0 (>49); GLUCOSE, FASTING 116 MG/DL (74-106); POTASSIUM SERUM 3.6 MMOL/L (3.5-5.1); SODIUM LEVEL 138 MMOL/L (136-145)
[2023-07-28] MEDS: LEVALBUTEROL 1.25MG 0.5ML CONCENTRATE NEB NEB SCH ×4 (07:36→20:49)
[2023-07-28] MEDS: TIOTROPIUM INHALER/CAPSULE (SPIRIVA) INH SCH (07:36)
[2023-07-28] MEDS: SYMBICORT 80/4.5MCG INHALER 6GM INH SCH ×2 (07:36→20:49)
[2023-07-28] MEDS ORDERED: VANCOMYCIN HCL 750 MG, VIAL MATE ADAPTER 1 EACH in D5W 250 ML IV SCH (08:00)
[2023-07-28] MEDS: ENOXAPARIN 40MG/0.4ML SYRINGE (J1650 PER 10MG) SC SCH (08:22)
[2023-07-28] MEDS: OMEPRAZOLE 20MG CAP PO SCH (08:22)
[2023-07-28] MEDS: SIMVASTATIN 20 MG TAB PO SCH (08:22)
[2023-07-28] MEDS: LevoFLOXacin IV 750 MG in IV 1 EA IV SCH (15:49)
[2023-07-29] MEDS: ACETAMINOPH W/CODEINE #3 TAB UD PO PRN ×2 (00:13→09:58)
[2023-07-29 00:47] VITALS: BP 107/54; TEMP 98.5; O2SAT 96
[2023-07-29 04:44] LABS: HEMATOCRIT 27.4 % (42.0-52.0); HEMOGLOBIN 9.4 g/dl (13.5-17.5); MEAN CORPUSCULAR HEMOGLOBIN 30.7 pg (27.0-33.0); MEAN CORPUSCULAR HGB CONC 34.3 g/dl (32.0-36.5); MEAN CORPUSCULAR VOLUME 89.5 fl (80.0-96.0); PLATELET COUNT, AUTOMATED 323 10^3/uL (150-450); RED BLOOD COUNT 3.06 10^6/uL (4.30-6.10); WHITE BLOOD COUNT 10.7 10^3/uL (4.0-10.0)
[2023-07-29 04:59] VITALS: BP 107/57; TEMP 98.4; O2SAT 96
[2023-07-29 05:09] LABS: BLOOD UREA NITROGEN 8 MG/DL (9-23); CALCIUM LEVEL 7.2 MG/DL (8.3-10.6); CARBON DIOXIDE LEVEL 25 MMOL/L (20-31); CHLORIDE LEVEL 102 MMOL/L (98-107); CREATININE FOR GFR 0.51 MG/DL (0.70-1.30); GLOMERULAR FILTRATION RATE > 60.0 (>49); GLUCOSE, FASTING 123 MG/DL (74-106); POTASSIUM SERUM 3.5 MMOL/L (3.5-5.1); SODIUM LEVEL 135 MMOL/L (136-145)
[2023-07-29] MEDS ORDERED: LevoFLOXacin 750 MG TABLET PO SCH (06:00)
[2023-07-29 06:07] LABS: PROCALCITONIN 1.42 ng/ml
[2023-07-29 07:31] VITALS: BP 101/58; TEMP 98.6; O2SAT 96
[2023-07-29] MEDS: LEVALBUTEROL 1.25MG 0.5ML CONCENTRATE NEB NEB SCH ×2 (08:03→12:00)
[2023-07-29] MEDS: SYMBICORT 80/4.5MCG INHALER 6GM INH SCH (08:03)
[2023-07-29] MEDS: TIOTROPIUM INHALER/CAPSULE (SPIRIVA) INH SCH (08:04)
[2023-07-29] MEDS ORDERED: LEVO1TAB40 PO ×2 (09:57→10:34)
[2023-07-29] MEDS: OMEPRAZOLE 20MG CAP PO SCH (09:57)
[2023-07-29] MEDS: ENOXAPARIN 40MG/0.4ML SYRINGE (J1650 PER 10MG) SC SCH (09:57)
[2023-07-29] MEDS: SIMVASTATIN 20 MG TAB PO SCH (09:58)
[2023-07-29] MEDS ORDERED: SODIUM CHLORIDE 0.9% INJ 10 ML SYR IV PRN (12:25)
[2023-07-31 14:08] LABS: BODY FLUID CULTURE Not indicated. (.); LEGIONELLA ANTIGEN URINE Negative (Negative); ORGANISM ID Not indicated. (.); SPECIMEN SOURCE Urine (.); URINE STREP PNEUMONIAE ANTIGEN Negative (Negative)
== END 2023-07-29 12:43 | disposition home or self-care (01) | DRG 720 ==
LOC: M ED 12:38 → M ED INP 16:22 → M PCU 21:18
PROVIDERS: ADMIT Internal Medicine; ATTEND Internal Medicine
DX: A41.3 Sepsis due to Hemophilus influenzae (principal); J14 Pneumonia due to Hemophilus influenzae; C79.51 Secondary malignant neoplasm of bone; C79.31 Secondary malignant neoplasm of brain; J43.9 Emphysema, unspecified; I10 Essential (primary) hypertension; C34.31 Malignant neoplasm of lower lobe, right bronchus or lung; M54.9 Dorsalgia, unspecified; G89.29 Other chronic pain; K21.9 Gastro-esophageal reflux disease without esophagitis; E78.5 Hyperlipidemia, unspecified; Z90.2 Acquired absence of lung [part of]; Z98.49 Cataract extraction status, unspecified eye; F17.210 Nicotine dependence, cigarettes, uncomplicated; D63.0 Anemia in neoplastic disease; Z79.69 Long term (current) use of other immunomodulators and immunosuppressants; Z79.899 Other long term (current) drug therapy; Z88.0 Allergy status to penicillin

== ENCOUNTER → 2023-08-19 | Outpatient (CLI) | payer OTHER ==
[~2023-08-19] MED LIST changes: +ACET-645 PO; +GASTROGRAFIN SOLUTION 30ML As Ordered ONE; +ISOVUE-370 76% 100ML VIAL As Ordered ONE; +LEVO1TAB40 PO; +OMEP-173 PO
== END ==
LOC: M RAD 10:45
PROVIDERS: ATTEND Nurse Practitioner
DX: C34.90 Malignant neoplasm of unspecified part of unspecified bronchus or lung (principal)

== ENCOUNTER 2023-10-14 21:29 | Emergency (ER) | payer OTHER ==
[~2023-10-14] VITALS: Ht 167.6 cm; Wt 50.4 kg
[~2023-10-14 21:29] MED LIST changes: -GASTROGRAFIN SOLUTION 30ML As Ordered ONE; +HYDR-3713 PO; +HYDR-4517 PO; -ISOVUE-370 76% 100ML VIAL As Ordered ONE
[2023-10-14] MEDS ORDERED: ACET-683 PO (21:39)
[2023-10-14 22:42] LABS: VENOUS BASE EXCESS -1.1 (-2.0-2.0); VENOUS HCO3 23.7 MMOL/L (23.0-27.0); VENOUS PARTIAL PRESSURE CO2 40.1 mmHg (38.0-50.0); VENOUS PARTIAL PRESSURE O2 32.3 mmHg (30.0-50.0); VENOUS STANDARD HCO3 22.9 MMOL/L
[2023-10-14] MEDS: NS IV ONE (22:42)
[2023-10-14 22:43] LABS: VENOUS O2 SATURATION 63.4 % (60.0-80.0)
[2023-10-14 22:47] LABS: BASO % 0.2 % (0.0-1.0); EOS # 0.1 10^3/uL (0.0-0.5); EOS % 1.7 % (0.0-3.0); HEMATOCRIT 34.2 % (42.0-52.0); HEMOGLOBIN 10.9 g/dl (13.5-17.5); LYMPH # 0.6 10^3/uL (1.5-5.0); LYMPH % 14.1 % (24.0-44.0); MEAN CORPUSCULAR HEMOGLOBIN 28.8 pg (27.0-33.0); MEAN CORPUSCULAR HGB CONC 31.9 g/dl (32.0-36.5); MEAN CORPUSCULAR VOLUME 90.2 fl (80.0-96.0); MONO # 0.4 10^3/uL (0.0-0.8); NEUTROPHILS % 73.8 % (36.0-66.0); PLATELET COUNT, AUTOMATED 367 10^3/uL (150-450); RED BLOOD COUNT 3.79 10^6/uL (4.30-6.10); WHITE BLOOD COUNT 4.1 10^3/uL (4.0-10.0)
[2023-10-14 22:56] LABS: APPEARANCE, URINE CLEAR (CLEAR); BACTERIA, URINE AUTO NEGATIVE (NEGATIVE); BILIRUBIN, URINE AUTO NEGATIVE (NEGATIVE); BLOOD, URINE BLOOD NEGATIVE (NEGATIVE); COLOR, URINE YELLOW (YELLOW); GLUCOSE, URINE (UA) AUTO NEGATIVE (NEGATIVE); KETONE, URINE AUTO TRACE mg/dL (NEGATIVE); LEUKOCYTE ESTERASE, URINE AUTO NEGATIVE (NEGATIVE); MUCUS, URINE SMALL (NEGATIVE); NITRITE, URINE AUTO NEGATIVE (NEGATIVE); PROTEIN, URINE AUTO 1+ mg/dL (NEGATIVE); RBC, URINE AUTO 2 /HPF (0-3); SPECIFIC GRAVITY URINE AUTO 1.028 (1.002-1.035); SQUAMOUS EPITHELIAL CELL UR AU 0 /HPF (0-6); UROBILINOGEN, URINE AUTO 0.2 mg/dL (0.0-2.0); WBC, URINE AUTO 2 /HPF (0-3)
[2023-10-14 23:01] LABS: INR 1.07; PROTHROMBIN TIME 13.6 SECONDS (12.5-14.5)
[2023-10-14 23:02] LABS: PARTIAL THROMBOPLASTIN TIME 32.4 SECONDS (24.8-34.2)
[2023-10-14 23:09] LABS: CK-MB VALUE MASS < 1.0 NG/ML (<3.6)
[2023-10-14 23:11] LABS: AMYLASE 50 U/L (30-118)
[2023-10-14 23:12] LABS: ALBUMIN 3.2 G/DL (3.2-5.2); ALKALINE PHOSPHATASE 235 U/L (46-116); ALT/SGPT 16 U/L (7.0-40); AST/SGOT 28 U/L (<34); BILIRUBIN,DIRECT 0.1 MG/DL (<0.4); BILIRUBIN,TOTAL 0.4 MG/DL (0.3-1.2); BLOOD UREA NITROGEN 13 MG/DL (9-23); CALCIUM LEVEL 7.9 MG/DL (8.3-10.6); CARBON DIOXIDE LEVEL 23 MMOL/L (20-31); CHLORIDE LEVEL 110 MMOL/L (98-107); GLOMERULAR FILTRATION RATE > 60.0 (>49); GLUCOSE, FASTING 124 MG/DL (74-106); SODIUM LEVEL 140 MMOL/L (136-145); TOTAL PROTEIN 6.1 G/DL (5.7-8.2)
[2023-10-14 23:18] LABS: PROCALCITONIN 0.13 ng/ml
[2023-10-14 23:19] LABS: CPK CREATINE PHOSPHOKINASE 35 U/L (46-171); MB/CK RELATIVE INDEX 2.85 (< OR =4)
[2023-10-14] MEDS ORDERED: LEVO1TAB40 PO (23:27)
[2023-10-14] MEDS: LevoFLOXacin IV 750 MG in IV 1 EA IV ONE (23:32)
[2023-10-15 01:15] VITALS: BP 125/56; TEMP 97.2; O2SAT 98
== END 2023-10-15 01:30 | disposition home or self-care (01) ==
LOC: M ED 21:29
DX: R50.9 Fever, unspecified (principal); J18.9 Pneumonia, unspecified organism; J44.9 Chronic obstructive pulmonary disease, unspecified; I10 Essential (primary) hypertension; F17.210 Nicotine dependence, cigarettes, uncomplicated; F10.10 Alcohol abuse, uncomplicated; Z88.0 Allergy status to penicillin; Z79.1 Long term (current) use of non-steroidal anti-inflammatories (NSAID); Z79.899 Other long term (current) drug therapy; Z79.51 Long term (current) use of inhaled steroids
CPT/HCPCS: 71045; 80048; 80076; 81001; 82150; 82550; 82553; 82803; 83605; 84145; 85025; 85610; 85730; 86140; 87040; 87086; 87486; 87581; 87633; 87798; 93005; 93041; 94760; 96361; 96365; 96366; 99285; J1956

== ENCOUNTER → 2023-11-02 | Outpatient (CLI) | payer OTHER ==
[~2023-11-02] MED LIST changes: +ACET-683 PO; +PROHANCE 279.3MG/ML 15ML VIAL As Ordered ONE
== END ==
LOC: M RAD 14:46
PROVIDERS: ATTEND General Practice
DX: C79.31 Secondary malignant neoplasm of brain (principal)

== ENCOUNTER → 2023-11-11 | Outpatient (CLI) | payer OTHER ==
[~2023-11-11] MED LIST changes: -PROHANCE 279.3MG/ML 15ML VIAL As Ordered ONE
== END ==
LOC: M ONCR 12:56
PROVIDERS: ATTEND General Practice
DX: C79.31 Secondary malignant neoplasm of brain (principal); C34.11 Malignant neoplasm of upper lobe, right bronchus or lung; C34.12 Malignant neoplasm of upper lobe, left bronchus or lung; F17.210 Nicotine dependence, cigarettes, uncomplicated; Z71.2 Person consulting for explanation of examination or test findings; Z79.1 Long term (current) use of non-steroidal anti-inflammatories (NSAID); Z79.51 Long term (current) use of inhaled steroids; Z79.899 Other long term (current) drug therapy; Z88.0 Allergy status to penicillin; Z88.1 Allergy status to other antibiotic agents; Z90.2 Acquired absence of lung [part of]; Z92.21 Personal history of antineoplastic chemotherapy; Z92.3 Personal history of irradiation

== ENCOUNTER → 2023-11-16 | Outpatient (CLI) | payer OTHER ==
[~2023-11-16] MED LIST changes: +GASTROGRAFIN SOLUTION 30ML As Ordered ONE; +ISOVUE-370 76% 100ML VIAL As Ordered ONE
== END ==
LOC: M RAD 08:31
PROVIDERS: ATTEND Nurse Practitioner
DX: C34.90 Malignant neoplasm of unspecified part of unspecified bronchus or lung (principal)

== ENCOUNTER → 2023-11-23 | Outpatient (CLI) | payer OTHER ==
[~2023-11-23] MED LIST changes: -GASTROGRAFIN SOLUTION 30ML As Ordered ONE; -ISOVUE-370 76% 100ML VIAL As Ordered ONE
== END ==
LOC: M RAD 10:48
PROVIDERS: ATTEND Specialist
DX: C34.90 Malignant neoplasm of unspecified part of unspecified bronchus or lung (principal); C79.51 Secondary malignant neoplasm of bone

== ENCOUNTER → 2023-11-27 | Outpatient (CLI) | payer OTHER ==
[~2023-11-27] MED LIST changes: +FOLI400T13 PO
== END ==
LOC: M ONCR 09:14
PROVIDERS: ATTEND General Practice
DX: C79.51 Secondary malignant neoplasm of bone (principal); C79.31 Secondary malignant neoplasm of brain; C34.12 Malignant neoplasm of upper lobe, left bronchus or lung; M54.50 Low back pain, unspecified; F17.210 Nicotine dependence, cigarettes, uncomplicated; Z79.1 Long term (current) use of non-steroidal anti-inflammatories (NSAID); Z79.51 Long term (current) use of inhaled steroids; Z79.52 Long term (current) use of systemic steroids; Z79.899 Other long term (current) drug therapy; Z88.0 Allergy status to penicillin; Z88.1 Allergy status to other antibiotic agents; Z71.2 Person consulting for explanation of examination or test findings; Z90.2 Acquired absence of lung [part of]; Z92.21 Personal history of antineoplastic chemotherapy; Z92.3 Personal history of irradiation

== ENCOUNTER → 2023-12-22 | Outpatient (RCR) | payer OTHER ==
[~2023-12-22] MED LIST changes: +FOLI1TAB11 PO
== END ==
LOC: M ONCR 12-07 10:20
PROVIDERS: ATTEND General Practice
DX: Z51.0 Encounter for antineoplastic radiation therapy (principal); C79.31 Secondary malignant neoplasm of brain

== ENCOUNTER → 2024-01-08 | Outpatient (REF) | payer OTHER ==
[2024-01-08 14:15] LABS: PSA SCREENING 4.02 NG/ML (< 4.00)
[2024-01-08 14:19] LABS: THYROID STIMULATING HORMONE 1.159 uIU/ML (0.55-4.78)
[2024-01-08 14:20] LABS: FREE T4 1.67 NG/DL (0.89-1.76)
== END ==
LOC: M LAB REF 13:00
PROVIDERS: ATTEND Internal Medicine Hematology
DX: R97.20 Elevated prostate specific antigen [PSA] (principal); E61.1 Iron deficiency

== ENCOUNTER → 2024-02-09 | Outpatient (CLI) | payer OTHER ==
[~2024-02-09] MED LIST changes: +ONDA-282 PO; -ONDA4TAB6 PO; +POTA-298 PO; +PROHANCE 279.3MG/ML 15ML VIAL As Ordered ONE; +PROHANCE 279.3MG/ML 5ML VIAL As Ordered ONE
== END ==
LOC: M RAD 10:15
PROVIDERS: ATTEND General Practice
DX: C79.31 Secondary malignant neoplasm of brain (principal)
CPT/HCPCS: 70553; A9576

== ENCOUNTER → 2024-02-16 | Outpatient (CLI) | payer OTHER ==
[~2024-02-16] MED LIST changes: -PROHANCE 279.3MG/ML 15ML VIAL As Ordered ONE; -PROHANCE 279.3MG/ML 5ML VIAL As Ordered ONE
== END ==
LOC: M ONCR 13:12
PROVIDERS: ATTEND General Practice
DX: C34.11 Malignant neoplasm of upper lobe, right bronchus or lung (principal); C34.12 Malignant neoplasm of upper lobe, left bronchus or lung; C79.31 Secondary malignant neoplasm of brain; C79.51 Secondary malignant neoplasm of bone; F17.210 Nicotine dependence, cigarettes, uncomplicated; Z88.0 Allergy status to penicillin; Z92.3 Personal history of irradiation; Z90.2 Acquired absence of lung [part of]

== ENCOUNTER → 2024-02-16 | Outpatient (CLI) | payer OTHER ==
[~2024-02-16] MED LIST changes: +ISOVUE-370 76% 100ML VIAL As Ordered ONE
== END ==
LOC: M RAD 10:02
PROVIDERS: ATTEND Specialist
DX: C34.90 Malignant neoplasm of unspecified part of unspecified bronchus or lung (principal)
CPT/HCPCS: 71260; Q9967

== ENCOUNTER 2024-04-27 10:14 | Emergency (ER) | payer OTHER ==
[~2024-04-27] VITALS: Ht 167.6 cm; Wt 44.2 kg
[~2024-04-27 10:14] MED LIST changes: -ISOVUE-370 76% 100ML VIAL As Ordered ONE
[2024-04-27] MEDS: NS 1,000 ML IV ONE ×2 (11:48→13:41)
[2024-04-27] MEDS: MORPHINE 4 MG/ML 1ML VIAL IV ONE ×2 (11:48→13:40)
[2024-04-27 12:03] LABS: EOS % 0.6 % (0.0-3.0); HEMATOCRIT 28.7 % (42.0-52.0); LYMPH # 0.4 10^3/uL (1.5-5.0); LYMPH % 9.7 % (24.0-44.0); MEAN CORPUSCULAR HGB CONC 31.4 g/dl (32.0-36.5); MEAN CORPUSCULAR VOLUME 89.4 fl (80.0-96.0); MONO # 0.2 10^3/uL (0.0-0.8); MONO % 4.7 % (2.0-8.0); NEUTROPHILS # 2.9 10^3/uL (1.5-8.5); NEUTROPHILS % 80.6 % (36.0-66.0); PLATELET COUNT, AUTOMATED 310 10^3/uL (150-450); RED BLOOD COUNT 3.21 10^6/uL (4.30-6.10); WHITE BLOOD COUNT 3.6 10^3/uL (4.0-10.0)
[2024-04-27 12:25] LABS: ALBUMIN 2.5 G/DL (3.2-5.2); ALKALINE PHOSPHATASE 204 U/L (46-116); ALT/SGPT 20 U/L (7.0-40); AST/SGOT 22 U/L (<34); BILIRUBIN,TOTAL 0.3 MG/DL (0.3-1.2); BLOOD UREA NITROGEN 10 MG/DL (9-23); CALCIUM LEVEL 9.1 MG/DL (8.3-10.6); CARBON DIOXIDE LEVEL 27 MMOL/L (20-31); CHLORIDE LEVEL 103 MMOL/L (98-107); CREATININE FOR GFR 0.41 MG/DL (0.70-1.30); GLOMERULAR FILTRATION RATE > 60.0 (>49); GLUCOSE, FASTING 95 MG/DL (74-106); SODIUM LEVEL 138 MMOL/L (136-145); TOTAL PROTEIN 6.4 G/DL (5.7-8.2)
[2024-04-27 13:04] VITALS: TEMP 98.5; O2SAT 97
[2024-04-27 15:21] VITALS: BP 141/76
[2024-05-02] MEDS ORDERED: FENT1DIS14 TOP (14:26)
== END 2024-04-27 15:22 | disposition home or self-care (01) ==
LOC: M ED 10:14
DX: M54.50 Low back pain, unspecified (principal); K21.9 Gastro-esophageal reflux disease without esophagitis; D64.9 Anemia, unspecified; C71.9 Malignant neoplasm of brain, unspecified; Z88.0 Allergy status to penicillin; Z79.1 Long term (current) use of non-steroidal anti-inflammatories (NSAID); Z79.51 Long term (current) use of inhaled steroids; Z79.899 Other long term (current) drug therapy

== ENCOUNTER → 2024-05-13 | Outpatient (CLI) | payer OTHER ==
[2024-05-13] VITALS (7 sets, daily range): BP systolic 118–154; BP diastolic 58–68; TEMP 98–98.6; O2SAT 94–100
[~2024-05-13] MED LIST changes: +ACETAMINOPHEN 650MG PO PRIOR TO INFUSION PO ONE; +FENT1DIS14 TOP; +NS 250 ML IV ONE; +OXYC30TA72 PO; +diphenhydrAMINE 25MG PO PRIOR TO INFUSION PO ONE
[2024-05-13] MEDS: SODIUM CHLORIDE 0.9% INJ 10 ML SYR IV PRN (12:09)
== END ==
LOC: M INFU 07:23
PROVIDERS: ATTEND Specialist
DX: D64.81 Anemia due to antineoplastic chemotherapy (principal); Z88.0 Allergy status to penicillin
CPT/HCPCS: 36430; J1642; P9016

== ENCOUNTER → 2024-05-13 | Outpatient (CLI) | payer OTHER ==
[~2024-05-13] MED LIST changes: -ACETAMINOPHEN 650MG PO PRIOR TO INFUSION PO ONE; -NS 250 ML IV ONE; +PROHANCE 279.3MG/ML 15ML VIAL As Ordered ONE; -diphenhydrAMINE 25MG PO PRIOR TO INFUSION PO ONE
== END ==
LOC: M RAD 07:26
PROVIDERS: ATTEND General Practice
DX: C79.31 Secondary malignant neoplasm of brain (principal)

== ENCOUNTER → 2024-05-18 | Outpatient (CLI) | payer OTHER ==
[~2024-05-18] VITALS: Ht 167.6 cm; Wt 44.1 kg
[~2024-05-18] MED LIST changes: +FENT1PAT25 TD; +IBUP-1022 PO; +MIRA3350 PO; +OXYC-1 PO; -PROHANCE 279.3MG/ML 15ML VIAL As Ordered ONE; +SENN-186 PO
[2024-05-18 08:03] VITALS: BP 132/65; O2SAT 95
== END ==
LOC: M PAL 07:55
PROVIDERS: ATTEND Nurse Practitioner Adult Health
DX: C34.12 Malignant neoplasm of upper lobe, left bronchus or lung (principal); C34.31 Malignant neoplasm of lower lobe, right bronchus or lung; C79.51 Secondary malignant neoplasm of bone; G89.3 Neoplasm related pain (acute) (chronic); K59.00 Constipation, unspecified; R64 Cachexia; R63.0 Anorexia; Z90.2 Acquired absence of lung [part of]; Z79.1 Long term (current) use of non-steroidal anti-inflammatories (NSAID); Z79.52 Long term (current) use of systemic steroids; Z79.51 Long term (current) use of inhaled steroids; Z79.620 Long term (current) use of immunosuppressive biologic; Z79.891 Long term (current) use of opiate analgesic; Z79.899 Other long term (current) drug therapy; Z88.0 Allergy status to penicillin; Z88.1 Allergy status to other antibiotic agents; Z92.29 Personal history of other drug therapy; Z92.3 Personal history of irradiation

== ENCOUNTER → 2024-05-19 | Outpatient (CLI) | payer OTHER | LOC: M PLAIMG 09:38 | PROVIDERS: ATTEND Specialist | DX: C34.90 Malignant neoplasm of unspecified part of unspecified bronchus or lung (principal) ==

== ENCOUNTER → 2024-05-20 | Outpatient (CLI) | payer OTHER | LOC: M ONCR 13:00 | PROVIDERS: ATTEND General Practice | DX: C79.31 Secondary malignant neoplasm of brain (principal); C34.12 Malignant neoplasm of upper lobe, left bronchus or lung; C79.51 Secondary malignant neoplasm of bone; F17.210 Nicotine dependence, cigarettes, uncomplicated; Z90.2 Acquired absence of lung [part of]; Z92.21 Personal history of antineoplastic chemotherapy; Z92.3 Personal history of irradiation; Z88.0 Allergy status to penicillin; Z88.1 Allergy status to other antibiotic agents; Z79.1 Long term (current) use of non-steroidal anti-inflammatories (NSAID); Z79.891 Long term (current) use of opiate analgesic; Z79.52 Long term (current) use of systemic steroids; Z79.899 Other long term (current) drug therapy ==

== ENCOUNTER → 2024-06-09 | Outpatient (CLI) | payer OTHER ==
[~2024-06-09] VITALS: Ht 167.6 cm; Wt 42.9 kg
[~2024-06-09] MED LIST changes: +MIRT1TAB PO; +MORP15TA2 PO; +MORP30TASA PO
[2024-06-09 11:34] VITALS: BP 115/68; O2SAT 96
== END ==
LOC: M PAL 11:25
PROVIDERS: ATTEND Nurse Practitioner Adult Health
DX: C34.12 Malignant neoplasm of upper lobe, left bronchus or lung (principal); C34.31 Malignant neoplasm of lower lobe, right bronchus or lung; C79.51 Secondary malignant neoplasm of bone; C79.31 Secondary malignant neoplasm of brain; G89.3 Neoplasm related pain (acute) (chronic); K59.00 Constipation, unspecified; R64 Cachexia; R63.0 Anorexia; R13.10 Dysphagia, unspecified; Z51.5 Encounter for palliative care; Z90.2 Acquired absence of lung [part of]; Z79.1 Long term (current) use of non-steroidal anti-inflammatories (NSAID); Z79.52 Long term (current) use of systemic steroids; Z79.51 Long term (current) use of inhaled steroids; Z79.620 Long term (current) use of immunosuppressive biologic; Z79.891 Long term (current) use of opiate analgesic; Z79.899 Other long term (current) drug therapy; Z88.0 Allergy status to penicillin; Z88.1 Allergy status to other antibiotic agents; Z92.29 Personal history of other drug therapy; Z92.3 Personal history of irradiation; Z92.21 Personal history of antineoplastic chemotherapy

== ENCOUNTER 2024-06-15 15:58 | Outpatient (RCR) | payer OTHER ==
[~2024-06-15 15:58] MED LIST changes: +MORP-69 PO
[2024-06-17] MEDS ORDERED: MORP15TA2 PO (00:32)
[2024-06-17] MEDS ORDERED: FOLI1TAB11 PO (00:32)
[2024-06-17] MEDS ORDERED: DEXA4TA PO (00:32)
[2024-06-17] MEDS ORDERED: POTA-298 PO (00:32)
[2024-06-17] MEDS ORDERED: ACET1TAB37 PO (00:32)
[2024-06-17] MEDS ORDERED: MIRT1TAB PO (00:32)
[2024-06-17] MEDS ORDERED: IBUP-1022 PO (00:32)
[2024-06-17] MEDS ORDERED: POLY1POW38 PO (00:32)
[2024-06-17] MEDS ORDERED: MORP-69 PO (00:32)
== END 2024-06-23 ==
LOC: M ONCR 15:58
PROVIDERS: ATTEND General Practice
DX: Z51.0 Encounter for antineoplastic radiation therapy (principal); C79.51 Secondary malignant neoplasm of bone

== ENCOUNTER 2024-06-16 19:26 | Inpatient (IN) | payer OTHER ==
[~2024-06-16] VITALS: Ht 167.6 cm; Wt 37.9 kg
[2024-06-16 21:11] LABS: ABG BASE EXCESS 5.6 (-2.0-2.0); ABG HCO3 29.4 MMOL/L (22.0-26.0); ABG PARTIAL PRESSURE CO2 39.6 mmHg (35.0-45.0); ABG STANDARD HCO3 29.5 MMOL/L. (22.0-26.0); ABG TOTAL CO2 30.6 MMOL/L (23.0-31.0); ABG pH (ARTERIAL) 7.489 UNITS (7.350-7.450)
[2024-06-16 21:57] LABS: BASO % 0.1 % (0.0-1.0); HEMATOCRIT 27.5 % (42.0-52.0); HEMOGLOBIN 8.4 g/dl (13.5-17.5); LYMPH # 0.1 10^3/uL (1.5-5.0); LYMPH % 1.6 % (24.0-44.0); MEAN CORPUSCULAR HEMOGLOBIN 27.5 pg (27.0-33.0); MEAN CORPUSCULAR HGB CONC 30.5 g/dl (32.0-36.5); MEAN CORPUSCULAR VOLUME 90.2 fl (80.0-96.0); MONO # 0.4 10^3/uL (0.0-0.8); MONO % 4.2 % (2.0-8.0); NEUTROPHILS % 91.9 % (36.0-66.0); PLATELET COUNT, AUTOMATED 102 10^3/uL (150-450); RED BLOOD COUNT 3.05 10^6/uL (4.30-6.10); WHITE BLOOD COUNT 8.7 10^3/uL (4.0-10.0)
[2024-06-16 22:00] VITALS: O2SAT 95
[2024-06-16 22:08] LABS: INR 1.16; PROTHROMBIN TIME 14.5 SECONDS (12.5-14.5)
[2024-06-16 22:15] VITALS: O2SAT 94
[2024-06-16 22:20] LABS: CK-MB VALUE MASS < 1.0 NG/ML (<3.6)
[2024-06-16 22:22] LABS: ALKALINE PHOSPHATASE 180 U/L (46-116); ALT/SGPT 12 U/L (7.0-40); AST/SGOT 23 U/L (<34); BILIRUBIN,DIRECT 0.2 MG/DL (<0.4); BILIRUBIN,TOTAL 0.4 MG/DL (0.3-1.2); BLOOD UREA NITROGEN 18 MG/DL (9-23); CALCIUM LEVEL 8.3 MG/DL (8.3-10.6); CARBON DIOXIDE LEVEL 31 MMOL/L (20-31); CHLORIDE LEVEL 102 MMOL/L (98-107); CPK CREATINE PHOSPHOKINASE 36 U/L (46-171); CREATININE FOR GFR 0.44 MG/DL (0.70-1.30); GLOMERULAR FILTRATION RATE > 60.0 (>49); GLUCOSE, FASTING 139 MG/DL (74-106); MB/CK RELATIVE INDEX 2.77 (< OR =4); POTASSIUM SERUM 3.5 MMOL/L (3.5-5.1); SODIUM LEVEL 141 MMOL/L (136-145)
[2024-06-16 22:24] LABS: THYROID STIMULATING HORMONE 1.401 uIU/ML (0.55-4.78)
[2024-06-16] MEDS ORDERED: ISOVUE-370 76% 100ML VIAL As Ordered ONE (22:29)
[2024-06-16 22:30] VITALS: O2SAT 93
[2024-06-16 23:00] VITALS: O2SAT 98
[2024-06-16] MEDS: MORPHINE 30 MG TAB **MSIR PO PRN (23:11)
[2024-06-16] MEDS: NS 500 ML IV ONE (23:11)
[2024-06-16 23:42] LABS: CK-MB VALUE MASS < 1.0 NG/ML (<3.6); CPK CREATINE PHOSPHOKINASE 29 U/L (46-171); MB/CK RELATIVE INDEX 3.44 (< OR =4)
[2024-06-16 23:43] VITALS: O2SAT 100
[2024-06-17] VITALS (29 sets, daily range): BP systolic 106–141; BP diastolic 56–76; TEMP 98–99.4; O2SAT 91–100
[2024-06-17] MEDS ORDERED: ACETAMINOPHEN 325 MG TAB PO PRN (00:05)
[2024-06-17] MEDS ORDERED: MAALOX 30 ML SUSP *UDC PO PRN (00:05)
[2024-06-17] MEDS: LevoFLOXacin IV 750 MG in IV 1 EA IV ONE (00:05)
[2024-06-17] MEDS ORDERED: POTA-298 PO (00:32)
[2024-06-17] MEDS ORDERED: DEXA4TA PO (00:32)
[2024-06-17] MEDS ORDERED: MORP15TA2 PO (00:32)
[2024-06-17] MEDS ORDERED: IBUP-1022 PO (00:32)
[2024-06-17] MEDS ORDERED: MORP-69 PO (00:32)
[2024-06-17] MEDS ORDERED: FOLI1TAB11 PO (00:32)
[2024-06-17] MEDS ORDERED: POLY1POW38 PO (00:32)
[2024-06-17] MEDS ORDERED: MIRT1TAB PO (00:32)
[2024-06-17] MEDS ORDERED: ACET1TAB37 PO (00:32)
[2024-06-17] MEDS ORDERED: HOME MED LIST COMPLETE! XX SCH (00:35)
[2024-06-17 00:52] LABS: PROCALCITONIN 0.64 ng/ml
[2024-06-17] MEDS: NS 1,000 ML IV SCH (01:41)
[2024-06-17] MEDS: VANCOMYCIN 750 MG/150 ML IV ONE (02:06)
[2024-06-17] MEDS ORDERED: ALBUTEROL 90 MCG/ACT 8GM HFA INHALER INH PRN (02:45)
[2024-06-17] MEDS ORDERED: PILL CUTTER 1 EACH XX ONE (04:01)
[2024-06-17] MEDS: MORPHINE 30 MG TAB **MSIR PO PRN (04:03)
[2024-06-17 08:28] LABS: BLOOD UREA NITROGEN 15 MG/DL (9-23); CALCIUM LEVEL 7.8 MG/DL (8.3-10.6); CARBON DIOXIDE LEVEL 32 MMOL/L (20-31); CHLORIDE LEVEL 104 MMOL/L (98-107); CREATININE FOR GFR 0.41 MG/DL (0.70-1.30); GLOMERULAR FILTRATION RATE > 60.0 (>49); GLUCOSE, FASTING 93 MG/DL (74-106); POTASSIUM SERUM 3.4 MMOL/L (3.5-5.1); SODIUM LEVEL 141 MMOL/L (136-145)
[2024-06-17 08:29] LABS: BASO % 0.3 % (0.0-1.0); EOS % 0.1 % (0.0-3.0); HEMATOCRIT 22.4 % (42.0-52.0); HEMOGLOBIN 7.1 g/dl (13.5-17.5); LYMPH # 0.2 10^3/uL (1.5-5.0); LYMPH % 2.4 % (24.0-44.0); MEAN CORPUSCULAR HEMOGLOBIN 27.4 pg (27.0-33.0); MEAN CORPUSCULAR HGB CONC 31.7 g/dl (32.0-36.5); MEAN CORPUSCULAR VOLUME 86.5 fl (80.0-96.0); MONO # 0.6 10^3/uL (0.0-0.8); NEUTROPHILS % 88.8 % (36.0-66.0); RED BLOOD COUNT 2.59 10^6/uL (4.30-6.10); WHITE BLOOD COUNT 7.8 10^3/uL (4.0-10.0)
[2024-06-17] MEDS: ENOXAPARIN 40MG/0.4ML SYRINGE (J1650 PER 10MG) SC SCH (08:43)
[2024-06-17] MEDS: VANCOMYCIN HCL 500 MG in DEXTROSE 5% (D5W) MINI-BAG PLU 100 ML IV SCH (08:43)
[2024-06-17] MEDS: SIMVASTATIN 20 MG TAB PO SCH (08:44)
[2024-06-17] MEDS: OMEPRAZOLE 20MG CAP PO SCH (08:45)
[2024-06-17] MEDS: guaiFENesin ER TABLET 600 MG TAB PO SCH (08:45)
[2024-06-17] MEDS: POTASSIUM CHLORIDE 10MEQ SR TABLET PO SCH (08:45)
[2024-06-17] MEDS: MORPHINE 15 MG SA TAB PO SCH (08:45)
[2024-06-17 09:12] LABS: PLATELET COUNT, AUTOMATED 99 10^3/uL (150-450)
[2024-06-17 16:19] LABS: HEMATOCRIT 22.7 % (42.0-52.0)
[2024-06-17 16:38] LABS: HEMOGLOBIN 6.8 g/dl (13.5-17.5)
[2024-06-17] MEDS: MIRTAZAPINE 7.5MG PER 1/2 TABLET PO SCH (20:41)
[2024-06-17] MEDS: LevoFLOXacin 750 MG TABLET PO SCH (20:42)
[2024-06-17] MEDS: SYMBICORT 160/4.5MCG INHALER 6GM INH SCH (21:12)
[2024-06-17] MEDS ORDERED: guaiFENesin SYRUP 200MG 10ML UDC PO PRN (22:20)
[2024-06-18] VITALS (15 sets, daily range): BP systolic 107–140; BP diastolic 55–77; TEMP 97.7–99.4; O2SAT 93–98
[2024-06-18 05:03] LABS: BASO % 0.1 % (0.0-1.0); EOS % 0.2 % (0.0-3.0); HEMATOCRIT 30.3 % (42.0-52.0); LYMPH # 0.2 10^3/uL (1.5-5.0); LYMPH % 1.8 % (24.0-44.0); MEAN CORPUSCULAR HEMOGLOBIN 28.4 pg (27.0-33.0); MEAN CORPUSCULAR HGB CONC 32.7 g/dl (32.0-36.5); MEAN CORPUSCULAR VOLUME 87.1 fl (80.0-96.0); MONO # 0.7 10^3/uL (0.0-0.8); MONO % 6.7 % (2.0-8.0); NEUTROPHILS # 8.9 10^3/uL (1.5-8.5); NEUTROPHILS % 89.3 % (36.0-66.0); PLATELET COUNT, AUTOMATED 105 10^3/uL (150-450); RED BLOOD COUNT 3.48 10^6/uL (4.30-6.10)
[2024-06-18 05:07] LABS: HEMOGLOBIN 9.9 g/dl (13.5-17.5)
[2024-06-18 05:35] LABS: BLOOD UREA NITROGEN 12 MG/DL (9-23); CALCIUM LEVEL 8.5 MG/DL (8.3-10.6); CARBON DIOXIDE LEVEL 31 MMOL/L (20-31); CHLORIDE LEVEL 101 MMOL/L (98-107); CREATININE FOR GFR 0.38 MG/DL (0.70-1.30); GLOMERULAR FILTRATION RATE > 60.0 (>49); GLUCOSE, FASTING 102 MG/DL (74-106); MAGNESIUM LEVEL 1.4 MG/DL (1.8-2.4); POTASSIUM SERUM 3.3 MMOL/L (3.5-5.1); SODIUM LEVEL 140 MMOL/L (136-145)
[2024-06-18] MEDS: MAG SULF 1GM/100ML (MAG RUN) 1 GM in IV 1 EA IV SCH (06:05)
[2024-06-18] MEDS: KCL 10MEQ/100ML SWI (KRUN) 10 MEQ in IV 1 EA IV SCH (09:38)
[2024-06-18] MEDS: LevoFLOXacin IV 750 MG in IV 1 EA IV SCH (20:57)
[2024-06-18 21:28] LABS: MAGNESIUM LEVEL 1.7 MG/DL (1.8-2.4); POTASSIUM SERUM 3.9 MMOL/L (3.5-5.1)
[2024-06-19] VITALS (7 sets, daily range): BP systolic 110–151; BP diastolic 60–73; TEMP 98.1–99.1; O2SAT 92–97
[2024-06-19] MEDS: RAMELTEON 8 MG TAB (ROZEREM) PO ONE (03:57)
[2024-06-19] MEDS: LIDOCAINE 5% (LIDODERM) PATCH TD ONE (03:57)
[2024-06-19 06:03] LABS: BASO % 0.1 % (0.0-1.0); EOS % 0.1 % (0.0-3.0); HEMATOCRIT 30.1 % (42.0-52.0); HEMOGLOBIN 9.8 g/dl (13.5-17.5); LYMPH # 0.2 10^3/uL (1.5-5.0); LYMPH % 1.7 % (24.0-44.0); MEAN CORPUSCULAR HEMOGLOBIN 28.7 pg (27.0-33.0); MEAN CORPUSCULAR HGB CONC 32.6 g/dl (32.0-36.5); MEAN CORPUSCULAR VOLUME 88.3 fl (80.0-96.0); MONO # 0.7 10^3/uL (0.0-0.8); MONO % 6.1 % (2.0-8.0); NEUTROPHILS # 9.7 10^3/uL (1.5-8.5); NEUTROPHILS % 90.1 % (36.0-66.0); PLATELET COUNT, AUTOMATED 101 10^3/uL (150-450); RED BLOOD COUNT 3.41 10^6/uL (4.30-6.10); WHITE BLOOD COUNT 10.8 10^3/uL (4.0-10.0)
[2024-06-19 06:23] LABS: BLOOD UREA NITROGEN 11 MG/DL (9-23); CALCIUM LEVEL 8.6 MG/DL (8.3-10.6); CARBON DIOXIDE LEVEL 32 MMOL/L (20-31); CHLORIDE LEVEL 103 MMOL/L (98-107); CREATININE FOR GFR 0.43 MG/DL (0.70-1.30); GLOMERULAR FILTRATION RATE > 60.0 (>49); GLUCOSE, FASTING 98 MG/DL (74-106); POTASSIUM SERUM 4.1 MMOL/L (3.5-5.1); SODIUM LEVEL 140 MMOL/L (136-145)
[2024-06-19] MEDS: LevoFLOXacin 750 MG TABLET PO SCH (10:35)
[2024-06-19] MEDS: MOM 30ML SUSPENSION UDC PO PRN (10:39)
[2024-06-19] MEDS: MIRALAX *UNIT DOSE* 17GM PACKET PO SCH (15:07)
[2024-06-19] MEDS: SENOKOT S TAB PO SCH (15:07)
[2024-06-19] MEDS: LIDOCAINE 5% (LIDODERM) PATCH TD SCH (21:01)
[2024-06-19] MEDS: RAMELTEON 8 MG TAB (ROZEREM) PO SCH (21:01)
[2024-06-19] MEDS: oxyCODONE 15MG CR TAB PO SCH (21:02)
[2024-06-20 03:30] VITALS: BP 126/66; TEMP 98.1; O2SAT 97
[2024-06-20] MEDS: HALOPERIDOL LACTATE 5MG/ML VIAL IM PRN (06:09)
[2024-06-20 06:28] LABS: BASO % 0.2 % (0.0-1.0); EOS % 0.1 % (0.0-3.0); HEMATOCRIT 31.2 % (42.0-52.0); HEMOGLOBIN 10.1 g/dl (13.5-17.5); LYMPH # 0.2 10^3/uL (1.5-5.0); LYMPH % 1.9 % (24.0-44.0); MEAN CORPUSCULAR HEMOGLOBIN 29.2 pg (27.0-33.0); MEAN CORPUSCULAR HGB CONC 32.4 g/dl (32.0-36.5); MEAN CORPUSCULAR VOLUME 90.2 fl (80.0-96.0); MONO # 0.8 10^3/uL (0.0-0.8); MONO % 6.9 % (2.0-8.0); NEUTROPHILS # 10.6 10^3/uL (1.5-8.5); NEUTROPHILS % 89.3 % (36.0-66.0); PLATELET COUNT, AUTOMATED 111 10^3/uL (150-450); RED BLOOD COUNT 3.46 10^6/uL (4.30-6.10); WHITE BLOOD COUNT 11.9 10^3/uL (4.0-10.0)
[2024-06-20 06:54] LABS: BLOOD UREA NITROGEN 14 MG/DL (9-23); CALCIUM LEVEL 8.4 MG/DL (8.3-10.6); CARBON DIOXIDE LEVEL 27 MMOL/L (20-31); CHLORIDE LEVEL 105 MMOL/L (98-107); GLOMERULAR FILTRATION RATE > 60.0 (>49); GLUCOSE, FASTING 115 MG/DL (74-106); POTASSIUM SERUM 4.1 MMOL/L (3.5-5.1); SODIUM LEVEL 139 MMOL/L (136-145)
[2024-06-20 08:00] VITALS: BP 107/60; TEMP 98.1; O2SAT 97
[2024-06-20 12:00] VITALS: BP 136/68; TEMP 98.4; O2SAT 96
[2024-06-20] MEDS ORDERED: E-Z-PAQUE 96% w/w SUSP 176GM BTL As Ordered ONE (12:08)
[2024-06-20] MEDS ORDERED: VARIBAR PUDDING 40% w/v 230ML TUBE As Ordered ONE (12:08)
[2024-06-20] MEDS ORDERED: VARIBAR NECTAR 40% w/v 240ML SUSP BTL As Ordered ONE (12:08)
[2024-06-20] MEDS ORDERED: BARIUM SULFATE 700 MG TABLET (E-Z-DISK) As Ordered ONE (12:09)
[2024-06-20] MEDS: oxyCODONE 5MG TAB PO PRN (13:54)
[2024-06-20 16:00] VITALS: BP 110/60; TEMP 98.1; O2SAT 95
[2024-06-20 19:42] VITALS: BP 112/69; TEMP 98.1; O2SAT 94
[2024-06-20] MEDS: OLANZapine ORAL DISINTEGRATING TAB 5MG PO SCH (20:04)
[2024-06-20 20:58] LABS: MYCOPLASMA PNEUMONIAE IGG <= 0.90 (<=0.90)
[2024-06-21 03:57] VITALS: BP 112/68; TEMP 98.4; O2SAT 96
[2024-06-21 07:35] LABS: BASO % 0.2 % (0.0-1.0); HEMATOCRIT 33.4 % (42.0-52.0); HEMOGLOBIN 10.5 g/dl (13.5-17.5); LYMPH # 0.2 10^3/uL (1.5-5.0); LYMPH % 1.7 % (24.0-44.0); MEAN CORPUSCULAR HEMOGLOBIN 28.1 pg (27.0-33.0); MEAN CORPUSCULAR HGB CONC 31.4 g/dl (32.0-36.5); MEAN CORPUSCULAR VOLUME 89.3 fl (80.0-96.0); MONO # 0.8 10^3/uL (0.0-0.8); MONO % 7.5 % (2.0-8.0); NEUTROPHILS # 9.6 10^3/uL (1.5-8.5); PLATELET COUNT, AUTOMATED 138 10^3/uL (150-450); RED BLOOD COUNT 3.74 10^6/uL (4.30-6.10); WHITE BLOOD COUNT 10.8 10^3/uL (4.0-10.0)
[2024-06-21 08:03] LABS: BLOOD UREA NITROGEN 14 MG/DL (9-23); CALCIUM LEVEL 8.3 MG/DL (8.3-10.6); CARBON DIOXIDE LEVEL 27 MMOL/L (20-31); CHLORIDE LEVEL 104 MMOL/L (98-107); CREATININE FOR GFR 0.44 MG/DL (0.70-1.30); GLOMERULAR FILTRATION RATE > 60.0 (>49); GLUCOSE, FASTING 103 MG/DL (74-106); POTASSIUM SERUM 4.2 MMOL/L (3.5-5.1); SODIUM LEVEL 138 MMOL/L (136-145)
[2024-06-21 12:00] VITALS: BP 112/66; TEMP 97.7; O2SAT 91
[2024-06-21] MEDS ORDERED: ONDANSETRON 4MG ORAL DISINTEGRATING TAB PO PRN (15:35)
[2024-06-21] MEDS ORDERED: HYOSCYAMINE SULFATE 0.125 MG SUBL TABLET PO PRN (15:35)
[2024-06-21] MEDS ORDERED: BISACODYL 10MG SUPP PR PRN (15:35)
[2024-06-21] MEDS ORDERED: SENOKOT S TAB PO PRN (15:45)
[2024-06-21] MEDS: MORPHINE 10MG/0.5ML ORAL CONCENTRATE SOLUTION U/D SL SCH (16:42)
[2024-06-21] MEDS: LORazepam 1 MG TAB SL PRN (16:42)
[2024-06-21] MEDS: ATROPINE SULFATE 1% OPHTH SOLN 2ML BTL SL PRN (16:42)
[2024-06-21] MEDS: MORPHINE 10MG/0.5ML ORAL CONCENTRATE SOLUTION U/D SL PRN (19:05)
[2024-06-21] MEDS: diazePAM 2 MG TAB PO PRN (19:05)
[2024-06-21 19:11] LABS: URINE STREP PNEUMONIAE ANTIGEN NOT DETECTED (NOT DETECT)
[2024-06-21] MEDS: OLANZapine ORAL DISINTEGRATING TAB 5MG PO SCH (21:22)
[2024-06-22] MEDS ORDERED: LORazepam 1 MG TAB SL PRN (09:15)
[2024-06-22] MEDS ORDERED: MORPHINE 10MG/0.5ML ORAL CONCENTRATE SOLUTION U/D SL PRN (09:20)
[2024-06-22] MEDS ORDERED: HALOPERIDOL LACTATE 5MG/ML VIAL IV PRN (10:55)
[2024-06-22] MEDS: MORPHINE 10MG/0.5ML ORAL CONCENTRATE SOLUTION U/D SL SCH (12:38)
== END 2024-06-23 06:24 | disposition expired | DRG 137 ==
LOC: M ED 19:26 → M ED INP 06-17 00:06 → M PCU 06-17 01:06 → M MS5PR 06-20 19:00
PROVIDERS: ADMIT Student in an Organized Health Care Education/Training Program; ATTEND General Practice
PROC: 30233N1 Transfusion of Nonautologous Red Blood Cells into Peripheral Vein, Percutaneous Approach (ICD-10-PCS; principal; 2024-06-17)
DX: J15.69 Pneumonia due to other Gram-negative bacteria (principal); R57.1 Hypovolemic shock; R64 Cachexia; C79.51 Secondary malignant neoplasm of bone; C79.31 Secondary malignant neoplasm of brain; E43 Unspecified severe protein-calorie malnutrition; D64.81 Anemia due to antineoplastic chemotherapy; C34.11 Malignant neoplasm of upper lobe, right bronchus or lung; J44.9 Chronic obstructive pulmonary disease, unspecified; R13.10 Dysphagia, unspecified; K59.00 Constipation, unspecified; K21.9 Gastro-esophageal reflux disease without esophagitis; R41.82 Altered mental status, unspecified; R44.1 Visual hallucinations; E78.5 Hyperlipidemia, unspecified; R27.0 Ataxia, unspecified; T40.2X5A Adverse effect of other opioids, initial encounter; R09.02 Hypoxemia; Z51.5 Encounter for palliative care; R53.81 Other malaise; Z66 Do not resuscitate; Z90.2 Acquired absence of lung [part of]; Z92.21 Personal history of antineoplastic chemotherapy; Z92.3 Personal history of irradiation; Z68.1 Body mass index [BMI] 19.9 or less, adult; Z79.891 Long term (current) use of opiate analgesic; Z79.899 Other long term (current) drug therapy; Z88.0 Allergy status to penicillin